=== PATIENT | female | born 1960 | race Two or more races ===

== ENCOUNTER 2020-04-15 11:40 | Emergency (ER) | payer OTHER, SELFPAY ==
--- NOTE | 2020-04-15 11:56 | ED.EXTPRO ---
HPI - Extremity Problem General Chief complaint: Extremity Injury, Upper Stated complaint: SHOULDER PAIN NO KNOWN INJ Time Seen by Provider: 04/15/20 11:55 Source: patient Mode of arrival: ambulatory History of Present Illness HPI Narrative: 60-year-old female presenting to ED complaining of right shoulder pain MD Complaint: extremity pain Related Data Allergies Allergy/AdvReac Type Severity Reaction Status Date / Time No Known Allergies Allergy Unverified 03/21/20 17:39
[2020-04-15 12:00] VITALS: BP 123/86; PULSE 110; RESP 16; TEMP 36.4; O2SAT 98
--- NOTE | 2020-04-15 12:06 | ECG_ITS ---
Test Reason : CHEST PAIN Blood Pressure : / mmHG Vent. Rate : 095 BPM Atrial Rate : 095 BPM P-R Int : 142 ms QRS Dur : 074 ms QT Int : 346 ms P-R-T Axes : 056 036 030 degrees QTc Int : 434 ms Normal sinus rhythm Possible Left atrial enlargement Otherwise normal ECG When compared with ECG of 25-NOV-2019 17:33, No significant change was found Referred By: Pauly Lima Electronically Signed By:CHILO BAUTISTA MD
--- NOTE | 2020-04-15 12:18 | ED_ITS ---
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 States she is prescribed oxycodone she ran out of it today call the primary care doctor for refill however today was having pain radiating down to the HS the plantar come to emergency room. She otherwise denies any shortness of breath. No fever or chills. No cough. No recent injury or fall. No headache. No upper extremity numbness or weakness or loss of sensation. MD Complaint: other (r side cp ) Onset (ago): day(s) Pain Consistency: intermittent Location: right Severity scale (1-10): 4 Quality: aching Radiation: none Relieving factors: nothing Exacerbating factors: palpation Associated symptoms: chest pain Related Data Previous Rx's Medication Instructions Recorded cyclobenzaprine 10 mg PO BEDTIME PRN #20 tab 04/15/20 Allergies Allergy/AdvReac Type Severity Reaction Status Date / Time No Known Allergies Allergy Unverified 03/21/20 17:39 Review of Systems Review of Systems: Constitutional: No Weight loss, No Fever, No Chills, No Night Sweats, No Fatigue, No Malaise ENT/Mouth: No Hearing loss, No Ear Pain, No Nasal Congestion, No Sinus Pain, No Hoarseness, No sore throat, No Rhinorrhea, No Swallowing Difficulty Eyes: No Eye Pain, No Swelling, No Redness, No Foreign Body, No Discharge, No Vision Changes Cardiovascular: + Chest Pain, No SOB, No Dyspnea on Exertion, No Orthopnea, No Edema, No Palpitations Respiratory: No Cough, No Sputum, No Wheezing, No Smoke Exposure, No Dyspnea Gastrointestinal: No Nausea, No Vomiting, No Diarrhea, No Constipation, No abdominal Pain, No Hematochezia, No Melena Genitourinary: no irregular bleeding, No Dysuria, No Urinary Frequency, No Hematuria, No Urinary Incontinence, No Urgency, No Flank Pain, No Urinary Flow Changes, No Hesitancy Musculoskeletal: No joint pain, No Myalgias, No Joint Swelling Skin: No Skin Lesions, No rash Neuro: No Weakness, No Numbness, No Paresthesias, No Loss of Consciousness, No Dizziness, No Headache Psych: No Anxiety/Panic, No Depression, No SI/HI/AH/VH, No Social Issues, Heme/Lymph: No Bruising, No Bleeding,No Lymphadenopathy Endocrine: No Polyuria, No Polydipsia, No Temperature Intolerance [facility] Past Medical History Attestation statement: The following information was validated with the patient. Medical History (Updated 04/15/20 @ 15:53 by Ruy Theodore NP) Edema Recent surgical procedure on lower extremity Surgical History (Updated 04/15/20 @ 12:10 by Dominga Mancuso) H/O abdominoplasty H/O thyroidectomy History of tubal ligation Social History Social History Alcohol intake: never Smoking Status: Never smoker Use of substances other than those prescribed or required for medical reasons: No Advance Directives: No Advance Directives Information Provided: No Physical Exam Vital Signs: Vital Signs: Vital Signs Temp Pulse Resp BP Pulse Ox 04/15/20 14:00 98.4 F 93 14 128/77 04/15/20 12:43 98.1 F 94 20 114/75 97 04/15/20 12:00 97.6 F 110 H 16 123/86 98 Body Mass Index 0.3 Const: General: cooperative and healthy appearing; No acute distress or intoxicated appearing Nutritional Appearance: average body habitus Orientation/consciousness: patient oriented x3 HENMT: Head: Yes normal to inspection Ears: hearing grossly normal bilaterally Eyes: General: appearance normal, both eyes and all related structures Visual Herrera: normal visual herrera by confrontation Neck: Neck: Yes normal visual inspection, No positive Brudzinski's sign, No positive Kernig's sign and Yes tender ( Right-sided lateral neck. Negative Spurling) Thyroid: Thyroid normal Chest: Chest palpation & inspection: normal inspection of the chest and other (r side paternal msk ttp ) Resp: Effort & Inspection: normal respiratory effort Cardio: Jugular venous distension: no JVD GI: Inspection: Yes normal to inspection Percussion: Yes normal to percussion Auscultation: normal bowel sounds : General: Yes no CVA tenderness Back/Spine/Pelvis: Back: no CVA tenderness Skin: General skin exam: no rashes or lesions noted Neuro: General: patient oriented x3 Extrem: General: Yes normal to inspection MDM - Extremity (Nontraumatic) MDM Narrative Medical decision making narrative: injury [age] female presenting with right- sided chest wall pain radiating up to the pectoral muscle/ cervical spine area. Has longstanding history of this minus the right-sided chest pain today. Patient arrival does appear slightly anxious heart rate in the low 100s. Labs unremarkable. Given the elevated D-dimer a CTA was done that was unremarkable. Incidental GB stone was shown she has no abdominal pain. Exam is benign. Hemodynamically stable. Differential diagnosis include but not limited to appendicitis, strain, cervical radiculopathy, ACS, pulmonary embolism. Lab Data Result diagrams: 04/15/20 12:41 04/15/20 12:41 Labs: Lab Results 04/15/20 04/15/20 04/15/20 Range/Units 12:41 12:41 12:41 WBC 5.0 (4.8-10.8) X10*3/uL RBC 3.92 L (4.20-5.50) X10*6/uL Hgb 13.8 (12.0-16.0) g/dl Hct 40.4 (37-47) % MCV 103.1 H (80-98) fL MCH 35.2 H (27.0-33.0) pg MCHC 34.2 (31.0-35.0) g/dl RDW 11.4 (11.0-16.0) % Plt Count 93 L (160-400) X10*3/uL MPV 10.4 (9.4-12.3) fL Immature Gran % (Auto) 0.2 (0.0-0.4) % Neut % (Auto) 68.4 (45-73) % Lymph % (Auto) 19.8 L (20-40) % [place] % (Auto) 11.0 (2-11) % Eos % (Auto) 0.0 (0-4) % Baso % (Auto) 0.6 (0-2) % Lymph # (Auto) 1.0 L (1.2-4.9) X10*3/uL [place] # (Auto) 0.6 (0.1-1.2) X10*3/uL Eos # (Auto) 0.0 (0.0-0.4) X10*3/uL Baso # (Auto) 0.0 (0.0-0.2) X10*3/uL Abs Immat Gran (auto) 0.01 (0.00-0.03) X10*3/uL Absolute Neuts (auto) 3.4 (2.0-8.3) X10*3/uL Absolute Nucleated RBC 0.000 (0.0-0.012) X10*3/uL Nucleated RBC % (auto) 0.0 (0.0-0.2) /100WBC D-Dimer 488 NG/ML Hold Blue Top SEE NOTE Sodium 142 (135-145) mmol/L Potassium 4.8 (3.3-5.1) mmol/l Chloride 103 (96-108) mmol/L Carbon Dioxide 30 H (22-29) mmol/L Anion Gap 14 (12-20) BUN 8 L (9-16) mg/dL Creatinine 0.72 (0.5-1.4) mg/dL Estim Creat Clear Calc 101.5 Estimated GFR > 60 Random Glucose 96 (60-115) mg/dL Calcium 9.5 (8.4-10.2) mg/dL Total Bilirubin 1.8 H (0.0-1.0) mg/dL AST 59 H (5-31) U/L ALT 37 H (0-31) U/L Alkaline Phosphatase 89 (39-117) U/L Troponin I High Sens (<3.5-17.0) ng/L Total Protein 7.6 (6.5-8.0) g/dL Albumin 4.4 (3.5-5.0) g/dL 04/15/20 Range/Units 12:41 WBC (4.8-10.8) X10*3/uL RBC (4.20-5.50) X10*6/uL Hgb (12.0-16.0) g/dl Hct (37-47) % MCV (80-98) fL MCH (27.0-33.0) pg MCHC (31.0-35.0) g/dl RDW (11.0-16.0) % Plt Count (160-400) X10*3/uL MPV (9.4-12.3) fL Immature Gran % (Auto) (0.0-0.4) % Neut % (Auto) (45-73) % Lymph % (Auto) (20-40) % [place] % (Auto) (2-11) % Eos % (Auto) (0-4) % Baso % (Auto) (0-2) % Lymph # (Auto) (1.2-4.9) X10*3/uL [place] # (Auto) (0.1-1.2) X10*3/uL Eos # (Auto) (0.0-0.4) X10*3/uL Baso # (Auto) (0.0-0.2) X10*3/uL Abs Immat Gran (auto) (0.00-0.03) X10*3/uL Absolute Neuts (auto) (2.0-8.3) X10*3/uL Absolute Nucleated RBC (0.0-0.012) X10*3/uL Nucleated RBC % (auto) (0.0-0.2) /100WBC D-Dimer NG/ML Hold Blue Top Sodium (135-145) mmol/L Potassium (3.3-5.1) mmol/l Chloride (96-108) mmol/L Carbon Dioxide (22-29) mmol/L Anion Gap (12-20) BUN (9-16) mg/dL Creatinine (0.5-1.4) mg/dL Estim Creat Clear Calc Estimated GFR Random Glucose (60-115) mg/dL Calcium (8.4-10.2) mg/dL Total Bilirubin (0.0-1.0) mg/dL AST (5-31) U/L ALT (0-31) U/L Alkaline Phosphatase (39-117) U/L Troponin I High Sens 3.6 (<3.5-17.0) ng/L Total Protein (6.5-8.0) g/dL Albumin (3.5-5.0) g/dL Imaging Data Chest x-ray: Radiologist's impression: Nola Carballo 60 F 1960 [place] [id number] XRay Report Signed Patient: ReymundoNola senaMR#: [id number] : 8Acct:[id number] Age/Sex: 60 / FADM Date: 04/15/20 Loc: HO.ED Attending Dr: Ordering Physician: Ruy Theodore NP Date of Service: 04/15/20 Procedure(s): XR chest 1V Accession Number(s): [id number] cc: Ruy Theodore [employer]~ EXAMINATION: XR CHEST CLINICAL INFORMATION: Chest wall pain COMPARISON: None TECHNIQUE: Portable upright AP view of the chest was obtained. FINDINGS: Lungs are clear. The vascularity is normal. There is no pneumothorax, airspace consolidation, vascular congestion, or effusion. The heart is normal in size. The hilar and mediastinal contours and bony structures are unremarkable. IMPRESSION: Unremarkable examination. Dictated By:NILSA NARANJO MD Signed By:<Electronically signed by NILSA NARANJO MD in [place]>04/15/20 1242 DD/ 1222 TD/TT: Cement Sack Breaker: ANTUNEZ CTA chest PE study: Radiologist's impression: Nola Carballo 60 F 1960 [place] [address] [address] Scan Report Signed Patient: Nola CarballoMR#: [id number] : 8Acct:[id number] Age/Sex: 60 / FADM Date: 04/15/20 Loc: .ED Attending Dr: Ordering Physician: Ruy Theodore NP Date of Service: 04/15/20 Procedure(s): CT angio chest PE protocol Accession Number(s): [id number] cc: Ruy Theodore [employer]~ EXAMINATION: CT ANGIOGRAM OF THE CHEST WITH AND WITHOUT CONTRAST (CT PULMONARY ANGIOGRAM FOR PE) CLINICAL INFORMATION: Reason for Exam cp / elevated ddimer COMPARISON: Previous chest x-ray from earlier the same day and chest CT most recent November 2019 TECHNIQUE: Prior to contrast administration, noncontrast localization images were obtained. Subsequently, multidetector volumetric imaging was performed from the thoracic inlet to below the diaphragms following the administration of 65 mL Omnipaque 350 intravenous contrast. No contrast reaction reported Sagittal, coronal, and MIP oblique sagittal reformatted images were obtained on the CT workstation, uploaded to PACS, and reviewed. This CT examination was performed using dose optimization techniques as appropriate, variously including the following: *Automated exposure control *Adjustment of mA and/or kV according to patient size (this includes techniques or standardized protocols for targeted exams where dose is matched to indication/reason for exam; i.e. extremities or head) *Use of iterative reconstruction technique Total exam dose-length product 363 mGy-cm FINDINGS: QUALITY OF STUDY/CONTRAST BOLUS: Satisfactory. PULMONARY ARTERIES: No central or segmental pulmonary emboli. THORACIC AORTA: No aneurysm or dissection. LUNG: No focal consolidation, nodules or masses. PLEURA: No pleural effusion or pneumothorax. MEDIASTINUM: Normal heart size. No pericardial effusion. No hilar or mediastinal lymphadenopathy. No evidence of septal bowing or right heart strain. CHEST WALL/AXILLA: No axillary or internal mammary lymphadenopathy. OSSEOUS STRUCTURES: There are mild degenerative changes of the spine. There is an old left lateral rib fracture. UPPER ABDOMEN: There are 2 low-attenuation liver lesions that are stable probably representing cysts. There is high attenuation seen dependently in the gallbladder questionable for small gallstones. There are postsurgical changes to the stomach following gastric sleeve procedure. No reflux of contrast into the hepatic veins to suggest elevated right heart pressures. IMPRESSION: No evidence of pulmonary embolism. Stable probable liver cysts. High attenuation seen dependently in the gallbladder questionable for small gallstones. VTE: negative Dictated By:ROMINA CLOUD MD Signed By:<Electronically signed by ROMINA CLOUD MD in [place]>04/15/20 1506 DD/ 1314 TD/TT: Cement Sack Breaker: FRANSICO ECG Data Interpretation: Normal sinus rhythm Heart rate [address] segment changes When compared to 11/25/2019 no acute changes. Discharge Plan Discharge Clinical Impression: Acute chest wall pain Patient Disposition: Home, Self-Care Instructions: Costochondritis (ED) Additional Instructions: warm compresses Gentle stretching Take medication as prescribed Return if any concerns or worsening symptoms Otherwise scheduled follow-up with her primary care doctor in the next 3-5 days Thank you Prescriptions: New cyclobenzaprine 10 mg tablet 10 mg PO BEDTIME PRN (Reason: muscle spasm) Qty: 20 RF: 0 Referrals: Bell Quintanilla MD [Primary Care Provider] - 2 days
--- NOTE | 2020-04-15 12:22 | XR_ITS ---
EXAMINATION: XR CHEST CLINICAL INFORMATION: Chest wall pain COMPARISON: None TECHNIQUE: Portable upright AP view of the chest was obtained. FINDINGS: Lungs are clear. The vascularity is normal. There is no pneumothorax, airspace consolidation, vascular congestion, or effusion. The heart is normal in size. The hilar and mediastinal contours and bony structures are unremarkable. IMPRESSION: Unremarkable examination.
[2020-04-15 12:43] VITALS: BP 114/75; PULSE 94; RESP 20; TEMP 36.7; O2SAT 97
[2020-04-15 12:48] LABS: MANUAL DIFF FLAG NO
[2020-04-15 12:49] LABS: Basophils Percent Auto 0.6 % (0-2); Hematocrit 40.4 % (37-47); Hemoglobin 13.8 g/dl (12.0-16.0); Imm Gran Abs Auto 0.01 X10*3/uL (0.00-0.03); Imm Gran Pct Auto 0.2 % (0.0-0.4); Lymphocytes Percent Auto 19.8 % (20-40); Mean Corpuscular HGB Conc 34.2 g/dl (31.0-35.0); Mean Corpuscular Hemoglobin 35.2 pg (27.0-33.0); Mean Corpuscular Volume 103.1 fL (80-98); Mean Platelet Volume 10.4 fL (9.4-12.3); Monocytes Absolute Auto 0.6 X10*3/uL (0.1-1.2); Neutrophils Absolute Auto 3.4 X10*3/uL (2.0-8.3); Neutrophils Percent Auto 68.4 % (45-73); Red Blood Count 3.92 X10*6/uL (4.20-5.50); Red Cell Distribution Width 11.4 % (11.0-16.0)
[2020-04-15 12:52] LABS: Platelet Count 93 X10*3/uL (160-400)
[2020-04-15 13:01] LABS: D Dimer 488 NG/ML
--- NOTE | 2020-04-15 13:14 | CT_ITS ---
EXAMINATION: CT ANGIOGRAM OF THE CHEST WITH AND WITHOUT CONTRAST (CT PULMONARY ANGIOGRAM FOR PE) CLINICAL INFORMATION: Reason for Exam cp / elevated ddimer COMPARISON: Previous chest x-ray from earlier the same day and chest CT most recent November 2019 TECHNIQUE: Prior to contrast administration, noncontrast localization images were obtained. Subsequently, multidetector volumetric imaging was performed from the thoracic inlet to below the diaphragms following the administration of 65 mL Omnipaque 350 intravenous contrast. No contrast reaction reported Sagittal, coronal, and MIP oblique sagittal reformatted images were obtained on the CT workstation, uploaded to PACS, and reviewed. This CT examination was performed using dose optimization techniques as appropriate, variously including the following: *Automated exposure control *Adjustment of mA and/or kV according to patient size (this includes techniques or standardized protocols for targeted exams where dose is matched to indication/reason for exam; i.e. extremities or head) *Use of iterative reconstruction technique Total exam dose-length product 363 mGy-cm FINDINGS: QUALITY OF STUDY/CONTRAST BOLUS: Satisfactory. PULMONARY ARTERIES: No central or segmental pulmonary emboli. THORACIC AORTA: No aneurysm or dissection. LUNG: No focal consolidation, nodules or masses. PLEURA: No pleural effusion or pneumothorax. MEDIASTINUM: Normal heart size. No pericardial effusion. No hilar or mediastinal lymphadenopathy. No evidence of septal bowing or right heart strain. CHEST WALL/AXILLA: No axillary or internal mammary lymphadenopathy. OSSEOUS STRUCTURES: There are mild degenerative changes of the spine. There is an old left lateral rib fracture. UPPER ABDOMEN: There are 2 low-attenuation liver lesions that are stable probably representing cysts. There is high attenuation seen dependently in the gallbladder questionable for small gallstones. There are postsurgical changes to the stomach following gastric sleeve procedure. No reflux of contrast into the hepatic veins to suggest elevated right heart pressures. IMPRESSION: No evidence of pulmonary embolism. Stable probable liver cysts. High attenuation seen dependently in the gallbladder questionable for small gallstones. VTE: negative
[2020-04-15 13:19] LABS: Alanine Aminotransferase 37 U/L (0-31); Albumin Level 4.4 g/dL (3.5-5.0); Alkaline Phosphatase 89 U/L (39-117); Anion Gap 14 (12-20); Aspartate Amino Transferase 59 U/L (5-31); Bilirubin Total 1.8 mg/dL (0.0-1.0); Blood Urea Nitrogen 8 mg/dL (9-16); Calcium 9.5 mg/dL (8.4-10.2); Carbon Dioxide 30 mmol/L (22-29); Chloride 103 mmol/L (96-108); Creatinine Clr Calc Pharmacy 101.5; Estimated Glomerular Filt Rate > 60; Glucose Random 96 mg/dL (60-115); Potassium 4.8 mmol/l (3.3-5.1); Sodium 142 mmol/L (135-145); Total Protein 7.6 g/dL (6.5-8.0)
[2020-04-15 13:24] LABS: Troponin-I High Sensitivity 3.6 ng/L (<3.5-17.0)
[2020-04-15 14:00] VITALS: BP 128/77; PULSE 93; RESP 14; TEMP 36.9
[2020-04-15] MEDS: iohexoL 350 MG/ML 100 ML INFUS..BTL IV (14:48)
[2020-04-15 15:59] VITALS: BP 121/85; PULSE 92; RESP 18; O2SAT 98
== END 2020-04-15 16:05 | disposition home or self-care (01) ==
PROVIDERS: Nurse Practitioner Primary Care; Emergency Provider Emergency Medicine; PCP Internal Medicine
DX: R07.89 Other chest pain (principal); M94.0 Chondrocostal junction syndrome [Tietze]
CPT/HCPCS: 36415; 71045; 71275; 80053; 84484; 85025; 85379; 93005; 99284

== ENCOUNTER 2020-05-03 10:33 | Outpatient (REF) | payer OTHER, SELFPAY | END 2020-05-03 10:34 | disposition home or self-care (01) | LOC: HO.LAB 10:33 | PROVIDERS: Visit Provider Obstetrics & Gynecology | DX: A63.0 Anogenital (venereal) warts (principal) | CPT/HCPCS: 57454; 88305; 88342; 88360 ==

== ENCOUNTER → 2020-05-16 12:02 | Outpatient (BNVA) | payer OTHER, SELFPAY | PROVIDERS: Visit Provider Obstetrics & Gynecology | DX: N87.0 Mild cervical dysplasia (principal) | CPT/HCPCS: 99212 ==

== ENCOUNTER 2020-05-18 08:36 | Emergency (ER) | payer OTHER, SELFPAY ==
[2020-05-18 08:41] VITALS: BP 141/89; PULSE 133; RESP 18; TEMP 37; O2SAT 100; BMI 30.9
--- NOTE | 2020-05-18 08:55 | XR_ITS ---
EXAMINATION: XR CHEST CLINICAL INFORMATION: Chest pain COMPARISON: Chest x-ray and CTA chest 04/15/2020 TECHNIQUE: Frontal view of the chest was obtained. FINDINGS: Cardiac silhouette is normal in size. The lungs are well aerated. There is no lobar consolidation. No pleural effusion or pneumothorax. No gross osseous abnormality. XR/XR chest 1V IMPRESSION: Stable examination demonstrating no acute pulmonary pathology.
--- NOTE | 2020-05-18 08:55 | ECG_ITS ---
Test Reason : CHEST PRESSURE Blood Pressure : / mmHG Vent. Rate : 106 BPM Atrial Rate : 106 BPM P-R Int : 148 ms QRS Dur : 076 ms QT Int : 352 ms P-R-T Axes : 060 059 034 degrees QTc Int : 467 ms Sinus tachycardia Possible Left atrial enlargement Borderline ECG When compared with ECG of 15-APR-2020 12:10, No significant change was found Referred By: Will Sy Electronically Signed By:CHILO BAUTISTA MD
--- NOTE | 2020-05-18 08:57 | ED_ITS ---
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 Never had similar pain in the past. Related Data Home Medications Medication Instructions Recorded Confirmed atorvastatin 20 mg tablet 20 mg PO DAILY 05/16/20 05/16/20 azithromycin 250 mg tablet mg PO DIRECTED 05/16/20 05/16/20 hydrocortisone 2.5 % topical cream applic TOPICAL 05/16/20 05/16/20 ibuprofen 400 mg tablet 400 mg PO TID 05/16/20 05/16/20 loratadine 10 mg tablet 10 mg PO DAILY 05/16/20 05/16/20 ondansetron HCl 4 mg tablet mg PO 05/16/20 05/16/20 Previous Rx's Medication Instructions Recorded cyclobenzaprine 10 mg PO BEDTIME PRN #20 tab 04/15/20 furosemide 20 mg tablet 10 mg PO QAM 90 Days #45 tab 04/15/20 Allergies Allergy/AdvReac Type Severity Reaction Status Date / Time No Known Allergies Allergy Unverified 05/16/20 12:03 Review of Systems Review of Systems All other systems are reviewed and are negative Constitutional: Reports as per HPI and Reports no additional constitutional complaints Eyes: Reports as per HPI and Reports no additional eye complaints Reports system reviewed and no additional complaints, except as documented Cardiovascular: Reports as per HPI and Reports no additional cardiovascular complaints Respiratory: Reports as per HPI and Reports no additional respiratory complaints Gastrointestinal: Reports as per HPI and Reports no additional gastrointestinal complaints Genitourinary: Reports no additional female genitourinary complaints Musculoskeletal: Reports no additional musculoskeletal complaints Skin/Breast: Reports system reviewed and no additional complaints, except as docu Psychiatric: Reports no additional psychiatric complaints Endocrine: Reports no additional endocrine complaints Hematologic/Lymphatic: Reports no additional hematologic/lymphatic complaints Allergic/Immunologic: Reports no additional allergic/immunologic complaints Reports system reviewed and no additional complaints, except as documented and Reports Abnormal speech present Physical Exam Vital Signs: Vital Signs: Last Vital Signs Temp 98.6 F 05/18/20 08:41 Pulse 97 05/18/20 12:15 Resp 18 05/18/20 12:15 BP 141/89 H 05/18/20 08:41 Pulse Ox 100 05/18/20 08:41 Body Mass Index 30.9 Vital signs have been reviewed as normal and appeared to be correct. Blood pressure on high range. Tachycardia. Respiration rate normal. Temperature normal. Oxygen saturation normal. Appearance: Alert. Oriented X3. acute distress due to active vomiting. Head: Normal external exam. Normocephalic. Atraumatic. No Meredith signs noted. No raccoon eyes noted Eyes: PERRLA. EOMI. Conjunctiva and sclera normal. Eyelids normal. ENT: EAC normal. TM's Normal. Pharynx normal. Uvula midline. Moist mucous membranes. No trismus noted. No drooling noted. No muffled voice noted. Neck: Normal inspection. Neck supple. FROM. No adenopathy. Thyroid Normal. No meningeal signs. No neck mass noted. CVS: Normal heart rate and rhythm. Heart sound normal. No murmurs noted. Pulses normal throughout. Respiratory: No respiratory distress. Painless inspiration. Breath sounds normal. No wheezes/rales/rhonchi noted. Chest nontender. No accessory muscle usage noted or decreased air movement noted. Abdomen: Positive tenderness to the epigastric area, no rebound, no guarding. Bowel sounds normal in all 4 quadrants. No distention noted. No organomegaly noted. No visible injury noted. Back: No CVA tenderness. Full range of motion noted. Skin: Skin warm and dry. Normal skin color. Normal skin turgor. No rashes/lesions/lacerations noted. Extremities: No lower extremity edema. Extremities exhibit normal range of motion. Extremities nontender. Neuro: Oriented X 3. No motor deficit. No sensory deficit. Reflexes normal. Course Course Course Narrative: 60 years old female presented with chest pain/epigastric abdominal pain, intractable double vomiting. Check labs for intra-abdominal/cardiac problems, reassess the patient, symptoms control. MDM - Abdominal Pain MDM Narrative Medical decision making narrative: 60-year-old female presented with chest pain/upper abdominal pain. 1. Slight elevation of LFTs ultrasound of the abdomen is unremarkable for gallbladder problems. 2. Chest pain EKG is unremarkable, chest x-ray is unremarkable, troponin x2 with a normal value . 3. Patient feels better able to tolerate p.o. intake with no nausea vomiting or abdominal pain. Will discharge the patient to follow-up with PCP. Lab Data Attestation: I reviewed the patient's lab results. Lab results narrative: Elevation of LFTs. Result diagrams: 05/18/20 09:05 05/18/20 09:05 Labs: Lab Results 05/18/20 05/18/20 05/18/20 Range/Units 09:05 09:05 09:05 WBC 6.4 (4.8-10.8) X10*3/uL RBC 4.24 (4.20-5.50) X10*6/uL Hgb 14.6 (12.0-16.0) g/dl Hct 42.9 (37-47) % MCV 101.2 H (80-98) fL MCH 34.4 H (27.0-33.0) pg MCHC 34.0 (31.0-35.0) g/dl RDW 11.3 (11.0-16.0) % Plt Count 176 D (160-400) X10*3/uL MPV 9.9 (9.4-12.3) fL Immature Gran % (Auto) 0.3 (0.0-0.4) % Neut % (Auto) 70.4 (45-73) % Lymph % (Auto) 19.6 L (20-40) % [place] % (Auto) 8.9 (2-11) % Eos % (Auto) 0.2 (0-4) % Baso % (Auto) 0.6 (0-2) % Lymph # (Auto) 1.3 (1.2-4.9) X10*3/uL [place] # (Auto) 0.6 (0.1-1.2) X10*3/uL Eos # (Auto) 0.0 (0.0-0.4) X10*3/uL Baso # (Auto) 0.0 (0.0-0.2) X10*3/uL Abs Immat Gran (auto) 0.02 (0.00-0.03) X10*3/uL Absolute Neuts (auto) 4.5 (2.0-8.3) X10*3/uL Absolute Nucleated RBC 0.000 (0.0-0.012) X10*3/uL Nucleated RBC % (auto) 0.0 (0.0-0.2) /100WBC Sodium 145 (135-145) mmol/L Potassium 4.1 (3.3-5.1) mmol/l Chloride 103 (96-108) mmol/L Carbon Dioxide 31 H (22-29) mmol/L Anion Gap 15 (12-20) BUN 6 L (9-16) mg/dL Creatinine 0.82 (0.5-1.4) mg/dL Estim Creat Clear Calc 70.9 Estimated GFR > 60 Random Glucose 110 (60-115) mg/dL Calcium 9.3 (8.4-10.2) mg/dL Total Bilirubin 2.0 H (0.0-1.0) mg/dL Direct Bilirubin 0.7 H (0.0-0.5) mg/dL AST 60 H (5-31) U/L ALT 39 H (0-31) U/L Alkaline Phosphatase 107 D (39-117) U/L Troponin I High Sens 3.9 (<3.5-17.0) ng/L B-Natriuretic Peptide (<100) pg/mL Total Protein 8.0 (6.5-8.0) g/dL Albumin 4.8 (3.5-5.0) g/dL Lipase 61 (8-78) U/L 05/18/20 05/18/20 Range/Units 09:05 14:12 WBC (4.8-10.8) X10*3/uL RBC (4.20-5.50) X10*6/uL Hgb (12.0-16.0) g/dl Hct (37-47) % MCV (80-98) fL MCH (27.0-33.0) pg MCHC (31.0-35.0) g/dl RDW (11.0-16.0) % Plt Count (160-400) X10*3/uL MPV (9.4-12.3) fL Immature Gran % (Auto) (0.0-0.4) % Neut % (Auto) (45-73) % Lymph % (Auto) (20-40) % [place] % (Auto) (2-11) % Eos % (Auto) (0-4) % Baso % (Auto) (0-2) % Lymph # (Auto) (1.2-4.9) X10*3/uL [place] # (Auto) (0.1-1.2) X10*3/uL Eos # (Auto) (0.0-0.4) X10*3/uL Baso # (Auto) (0.0-0.2) X10*3/uL Abs Immat Gran (auto) (0.00-0.03) X10*3/uL Absolute Neuts (auto) (2.0-8.3) X10*3/uL Absolute Nucleated RBC (0.0-0.012) X10*3/uL Nucleated RBC % (auto) (0.0-0.2) /100WBC Sodium (135-145) mmol/L Potassium (3.3-5.1) mmol/l Chloride (96-108) mmol/L Carbon Dioxide (22-29) mmol/L Anion Gap (12-20) BUN (9-16) mg/dL Creatinine (0.5-1.4) mg/dL Estim Creat Clear Calc Estimated GFR Random Glucose (60-115) mg/dL Calcium (8.4-10.2) mg/dL Total Bilirubin (0.0-1.0) mg/dL Direct Bilirubin (0.0-0.5) mg/dL AST (5-31) U/L ALT (0-31) U/L Alkaline Phosphatase (39-117) U/L Troponin I High Sens < 3.5 (<3.5-17.0) ng/L B-Natriuretic Peptide < 10 (<100) pg/mL Total Protein (6.5-8.0) g/dL Albumin (3.5-5.0) g/dL Lipase (8-78) U/L Imaging Data Gallbladder ultrasound: Radiologist's impression: Unremarkable gallbladder ECG Data Interpretation: Sinus tachycardia at 106 beats per minutes, normal axis, unremarkable intervals, no ST-T changes. Discharge Plan Discharge Clinical Impression: Gastritis Qualifiers: Gastritis type: unspecified gastritis Chronicity: acute Gastritis bleeding: wi thout bleeding Qualified Code(s): K29.00 - Acute gastritis without bleeding Chest pain Qualifiers: Chest pain type: unspecified Qualified Code(s): R07.9 - Chest pain, unspecified Patient Disposition: Home, Self-Care Instructions: Gastritis (ED) Prescriptions: No Action furosemide 20 mg tablet 10 mg PO QAM 90 Days Qty: 45 RF: 3 cyclobenzaprine 10 mg tablet 10 mg PO BEDTIME PRN (Reason: muscle spasm) Qty: 20 RF: 0 ibuprofen 400 mg tablet 400 mg PO TID RF: 0 ondansetron HCl 4 mg tablet PO RF: 0 loratadine 10 mg tablet 10 mg PO DAILY RF: 0 azithromycin 250 mg tablet PO DIRECTED RF: 0 hydrocortisone 2.5 % cream topical RF: 0 atorvastatin 20 mg tablet 20 mg PO DAILY RF: 0 Referrals: Mary Arndt MD [Physician] - 2 weeks [facility] Past Medical History Medical History IGNACIO I (cervical intraepithelial neoplasia I) Edema Leg edema Neck pain Recent surgical procedure on lower extremity Surgical History H/O abdominoplasty H/O thyroidectomy History of tubal ligation Social History Social History Alcohol intake: never Smoking Status: Never smoker Smoked in Last 30 Days: No Use of substances other than those prescribed or required for medical reasons: No Advance Directives: No Advance Directives Information Provided: No Sexual orientation: Straight/Heterosexual Gender identity: female
[2020-05-18] MEDS: ondansetron HCL 4 MG/2 ML VIAL IVPUSH (09:03)
[2020-05-18] MEDS: Famotidine/PF 20 MG/2 ML VIAL IVPUSH (09:03)
[2020-05-18] MEDS: 0.9 % Sodium Chloride 500 ML 1000 ML IV (09:03)
[2020-05-18 09:10] LABS: MANUAL DIFF FLAG NO
[2020-05-18 09:11] LABS: Basophils Percent Auto 0.6 % (0-2); Eosinophils Percent Auto 0.2 % (0-4); Hematocrit 42.9 % (37-47); Hemoglobin 14.6 g/dl (12.0-16.0); Imm Gran Abs Auto 0.02 X10*3/uL (0.00-0.03); Imm Gran Pct Auto 0.3 % (0.0-0.4); Lymphocytes Absolute Auto 1.3 X10*3/uL (1.2-4.9); Lymphocytes Percent Auto 19.6 % (20-40); Mean Corpuscular Hemoglobin 34.4 pg (27.0-33.0); Mean Corpuscular Volume 101.2 fL (80-98); Mean Platelet Volume 9.9 fL (9.4-12.3); Monocytes Absolute Auto 0.6 X10*3/uL (0.1-1.2); Monocytes Percent Auto 8.9 % (2-11); Neutrophils Absolute Auto 4.5 X10*3/uL (2.0-8.3); Neutrophils Percent Auto 70.4 % (45-73); Platelet Count 176 X10*3/uL (160-400); Red Blood Count 4.24 X10*6/uL (4.20-5.50); Red Cell Distribution Width 11.3 % (11.0-16.0); White Blood Count 6.4 X10*3/uL (4.8-10.8)
[2020-05-18 09:44] LABS: Troponin-I High Sensitivity 3.9 ng/L (<3.5-17.0)
[2020-05-18 09:46] LABS: B Type Natriuretic Peptide < 10 pg/mL (<100)
[2020-05-18 09:47] LABS: Alanine Aminotransferase 39 U/L (0-31); Albumin Level 4.8 g/dL (3.5-5.0); Alkaline Phosphatase 107 U/L (39-117); Anion Gap 15 (12-20); Aspartate Amino Transferase 60 U/L (5-31); Bilirubin Direct 0.7 mg/dL (0.0-0.5); Blood Urea Nitrogen 6 mg/dL (9-16); Calcium 9.3 mg/dL (8.4-10.2); Carbon Dioxide 31 mmol/L (22-29); Chloride 103 mmol/L (96-108); Creatinine Clr Calc Pharmacy 70.9; Estimated Glomerular Filt Rate > 60; Glucose Random 110 mg/dL (60-115); Lipase 61 U/L (8-78); Potassium 4.1 mmol/l (3.3-5.1); Sodium 145 mmol/L (135-145)
[2020-05-18 12:15] VITALS: PULSE 97; RESP 18
--- NOTE | 2020-05-18 12:54 | US_ITS ---
EXAMINATION: US ABDOMEN LIMITED CLINICAL INFORMATION: 60-year-old female patient with nausea and vomiting and elevated LFTs.. COMPARISON: Ultrasound of the abdomen complete on 06/03/2017. (Normal gallbladder). TECHNIQUE: Real-time imaging of the right upper quadrant abdominal viscera. FINDINGS: PANCREAS: Not examined. LIVER: Not examined. GALLBLADDER: Normal. The gallbladder is physiologically distended without evidence of stones, sludge, polyps, wall thickening or pericholecystic fluid. COMMON BILE DUCT: Normal in caliber measuring 0.3 cm in diameter. RIGHT KIDNEY: Not examined. FREE FLUID: None. US/US abdomen limited IMPRESSION: Normal gallbladder.
--- NOTE | 2020-05-18 13:37 | PC.NURSE ---
US AT BEDSIDE
--- NOTE | 2020-05-18 14:14 | PC.NURSE ---
[facility] SENT. PT TOLERATING PO CHALLENGE WELL
[2020-05-18 14:41] LABS: Troponin-I High Sensitivity < 3.5 ng/L (<3.5-17.0)
[2020-05-18 15:20] VITALS: RESP 18
== END 2020-05-18 15:26 | disposition home or self-care (01) ==
PROVIDERS: Emergency Provider Emergency Medicine; PCP Internal Medicine
DX: K29.00 Acute gastritis without bleeding (principal); R07.9 Chest pain, unspecified; R10.30 Lower abdominal pain, unspecified; Z79.899 Other long term (current) drug therapy
CPT/HCPCS: 36415; 71045; 76705; 80048; 80076; 83690; 83880; 84484; 85025; 93005; 96374; 96375; 99284; J2405

== ENCOUNTER 2020-06-26 15:18 | Outpatient (REF) | payer OTHER, SELFPAY | END 2020-06-26 15:19 | disposition home or self-care (01) | LOC: HO.LAB 15:18 | PROVIDERS: PCP Internal Medicine; Visit Provider Obstetrics & Gynecology | DX: B97.7 Papillomavirus as the cause of diseases classified elsewhere (principal) | CPT/HCPCS: 57505; 88305; 99212 ==

== ENCOUNTER 2020-07-10 12:14 | Outpatient (REF) | payer OTHER, SELFPAY ==
--- NOTE | 2020-07-10 12:52 | XR_ITS ---
EXAMINATION: XR SHOULDER, RIGHT CLINICAL INFORMATION: Pain COMPARISON: None TECHNIQUE: AP, Grashey and transscapular Y views of the right shoulder. FINDINGS: No acute fracture or dislocation. Moderate chronic lacunar marginal osteophytes. Small marginal osteophytes along the anatomic neck of the humerus. Soft tissues unremarkable. XR/XR shoulder RT min 2V IMPRESSION: No acute findings. Degenerative changes as described.
[2020-07-10 13:37] LABS: Rheumatoid Factor < 15.0 IU/mL (<15.0)
== END 2020-07-10 12:15 | disposition home or self-care (01) ==
LOC: HO.LAB 12:14
PROVIDERS: PCP Internal Medicine; Visit Provider Nurse Practitioner Family
DX: M25.511 Pain in right shoulder (principal)
CPT/HCPCS: 36415; 73030; 86431

== ENCOUNTER → 2020-07-11 14:26 | Outpatient (BNVA) | payer OTHER, SELFPAY | PROVIDERS: PCP Internal Medicine; Visit Provider Physician Assistant | DX: Z76.89 Persons encountering health services in other specified circumstances (principal) ==

== ENCOUNTER → 2020-07-15 15:26 | Outpatient (BNVA) | payer OTHER, SELFPAY | PROVIDERS: PCP Internal Medicine; Visit Provider Obstetrics & Gynecology | DX: Z76.89 Persons encountering health services in other specified circumstances (principal) ==

== ENCOUNTER 2020-07-17 13:11 | Outpatient (REF) | payer OTHER, SELFPAY | END 2020-07-17 13:12 | disposition home or self-care (01) | LOC: HO.LAB 13:11 | PROVIDERS: PCP Internal Medicine; Visit Provider Physician Assistant | DX: A04.8 Other specified bacterial intestinal infections (principal) | CPT/HCPCS: 87338 ==

== ENCOUNTER 2021-05-13 09:49 | Outpatient (REF) | payer OTHER, SELFPAY ==
[2021-05-13 10:04] LABS: MANUAL DIFF FLAG NO
[2021-05-13 10:14] LABS: Basophils Percent Auto 0.9 % (0-2); Eosinophils Absolute Auto 0.1 X10*3/uL (0.0-0.4); Eosinophils Percent Auto 1.1 % (0-4); Hematocrit 42.4 % (37.0-47.0); Hemoglobin 14.4 g/dl (12.0-16.0); Imm Gran Abs Auto 0.01 X10*3/uL (0.00-0.03); Imm Gran Pct Auto 0.2 % (0.0-0.4); Lymphocytes Absolute Auto 0.9 X10*3/uL (1.2-4.9); Lymphocytes Percent Auto 19.9 % (20-40); Mean Corpuscular Volume 103.2 fL (80.0-98.0); Mean Platelet Volume 10.1 fL (9.4-12.3); Monocytes Absolute Auto 0.5 X10*3/uL (0.1-1.2); Monocytes Percent Auto 11.3 % (2-11); Neutrophils Absolute Auto 3.1 x10*3/uL (2.0-8.3); Neutrophils Percent Auto 66.6 % (45-73); Platelet Count 127 X10*3/uL (160-400); Red Blood Count 4.11 X10*6/uL (4.20-5.50); Red Cell Distribution Width 11.2 % (11.0-16.0); White Blood Count 4.7 X10*3/uL (4.8-10.8)
[2021-05-13 10:42] LABS: Alanine Aminotransferase 33 U/L (0-31); Albumin Level 4.3 g/dL (3.5-5.0); Alkaline Phosphatase 105 U/L (39-117); Anion Gap 15 (12-20); Aspartate Amino Transferase 56 U/L (5-31); Bilirubin Total 2.6 mg/dL (0.0-1.0); Blood Urea Nitrogen 9 mg/dL (9-16); Carbon Dioxide 29 mmol/L (22-29); Chloride 103 mmol/L (96-108); Cholesterol 307 mg/dL; Estimated Glomerular Filt Rate > 60; Glucose Fasting 93 mg/dL (60-99); HDL Cholesterol 90 mg/dL; LDL Cholesterol Calculated 195 mg/dl; Sodium 142 mmol/L (135-145); Total Protein 7.6 g/dL (6.5-8.0); Triglycerides 110 mg/dL
[2021-05-13 11:13] LABS: Folate 13.5 ng/mL (> or = 4.0); Vitamin B12 522 pg/mL (200-900)
[2021-05-18 12:32] LABS: Vitamin D 25-OH, D2 <4 ng/mL; Vitamin D 25-OH, D3 8 ng/mL; Vitamin D 25-OH, Total 8 ng/mL (30-100)
== END 2021-05-13 09:50 | disposition home or self-care (01) ==
LOC: HO.LAB 09:49
PROVIDERS: PCP Internal Medicine; Visit Provider Internal Medicine
DX: E55.9 Vitamin D deficiency, unspecified (principal); D51.0 Vitamin B12 deficiency anemia due to intrinsic factor deficiency; E78.5 Hyperlipidemia, unspecified; K21.9 Gastro-esophageal reflux disease without esophagitis; Z87.891 Personal history of nicotine dependence
CPT/HCPCS: 36415; 80053; 80061; 82306; 82607; 82746; 85025

== ENCOUNTER 2021-08-26 08:58 | Outpatient (REF) | payer OTHER, SELFPAY ==
--- NOTE | ~2021-08-26 | FL_ITS ---
PROCEDURE: XR FLUOROSCOPY UPPER GI WITH AIR CLINICAL INFORMATION: Gastroesophageal reflux disease without esophagitis. COMPARISON: None TECHNIQUE: Routine upper GI air-contrast study was performed. FINDINGS: Following oral administration of thick barium and effervescent granules there is normal propagation of bolus from the oral cavity through the pharynx, esophagus into stomach without any evidence of obstruction, narrowing or stricture. On placing patient supine, there is a small caliber stomach noted likely from previous gastric sleeve surgery. Visualized duodenal bulb and the sweep are normal caliber. The mucosal pattern of the stomach and the duodenum is normal. There is moderate gastroesophageal reflux without hiatal hernia. FLUOROSCOPY TIME: 1.8 minutes. DOSE AREA PRODUCT: 20.516 uGy-m2 (microgray-meter squared) FL/FL upper GI w air IMPRESSION: Postsurgical small caliber stomach. The visualized stomach, duodenal bulb and the sweep normal. There is moderate gastroesophageal reflux without hiatal hernia.
== END 2021-08-26 08:59 | disposition home or self-care (01) ==
LOC: HO.XRAY 08:58
PROVIDERS: PCP Internal Medicine; Visit Provider Internal Medicine
DX: K21.9 Gastro-esophageal reflux disease without esophagitis (principal)
CPT/HCPCS: 74246

== ENCOUNTER → 2021-10-07 11:46 | Outpatient (BNVA) | payer OTHER, SELFPAY | PROVIDERS: PCP Internal Medicine; Visit Provider Physician Assistant | DX: K21.9 Gastro-esophageal reflux disease without esophagitis (principal); R10.13 Epigastric pain; Z98.84 Bariatric surgery status | CPT/HCPCS: 36415; 80053; 83690; 85025; 99202 ==

== ENCOUNTER 2021-10-07 12:32 | Outpatient (REF) | payer OTHER, SELFPAY ==
[2021-10-07 13:30] LABS: Basophils Percent Auto 0.5 % (0-2); Eosinophils Absolute Auto 0.1 X10*3/uL (0.0-0.4); Eosinophils Percent Auto 0.9 % (0-4); Hematocrit 39.9 % (37.0-47.0); Hemoglobin 13.7 g/dl (12.0-16.0); Imm Gran Abs Auto 0.01 X10*3/uL (0.00-0.03); Imm Gran Pct Auto 0.2 % (0.0-0.4); Lymphocytes Absolute Auto 1.6 X10*3/uL (1.2-4.9); Lymphocytes Percent Auto 28.2 % (20-40); MANUAL DIFF FLAG SCAN; Mean Corpuscular HGB Conc 34.3 g/dl (31.0-35.0); Mean Corpuscular Hemoglobin 34.1 pg (27.0-33.0); Mean Corpuscular Volume 99.3 fL (80.0-98.0); Mean Platelet Volume 10.6 fL (9.4-12.3); Monocytes Absolute Auto 0.7 X10*3/uL (0.1-1.2); Monocytes Percent Auto 13.2 % (2-11); Neutrophils Absolute Auto 3.2 x10*3/uL (2.0-8.3); PLT CLUMP 1; Red Blood Count 4.02 X10*6/uL (4.20-5.50); Red Cell Distribution Width 11.3 % (11.0-16.0); SCAN SMEAR FLAG 1
[2021-10-07 13:40] LABS: Alanine Aminotransferase 23 U/L (0-31); Albumin Level 4.2 g/dL (3.5-5.0); Alkaline Phosphatase 79 U/L (39-117); Anion Gap 11 (12-20); Aspartate Amino Transferase 29 U/L (5-31); Bilirubin Total 1.6 mg/dL (0.0-1.0); Blood Urea Nitrogen 8 mg/dL (9-16); Calcium 9.7 mg/dL (8.4-10.2); Carbon Dioxide 29 mmol/L (22-29); Chloride 104 mmol/L (96-108); Estimated Glomerular Filt Rate > 60; Glucose Random 108 mg/dL (60-115); Lipase 56 U/L (8-78); Potassium 4.1 mmol/L (3.3-5.1); Sodium 140 mmol/L (135-145); Total Protein 7.1 g/dL (6.5-8.0)
[2021-10-07 13:48] LABS: Platelet Count 145 X10*3/uL (160-400); SLIDE REVIEW VERIFIED; White Blood Count 5.5 X10*3/uL (4.8-10.8)
== END 2021-10-07 12:33 | disposition home or self-care (01) ==
LOC: HO.WFDLDS 12:32
PROVIDERS: Visit Provider Physician Assistant
DX: Z13.89 Encounter for screening for other disorder (principal)
CPT/HCPCS: 36415; 80053; 83690; 85025

== ENCOUNTER → 2022-01-12 15:04 | Outpatient (BNVA) | payer OTHER, SELFPAY | PROVIDERS: PCP Internal Medicine; Visit Provider Physician Assistant | DX: K21.9 Gastro-esophageal reflux disease without esophagitis (principal); Z79.899 Other long term (current) drug therapy; Z98.84 Bariatric surgery status | CPT/HCPCS: 99212 ==

== ENCOUNTER 2022-04-30 07:49 | Outpatient (REF) | payer OTHER, SELFPAY ==
[2022-04-30 09:19] LABS: Eosinophils Absolute Auto 0.1 X10*3/uL (0.0-0.4); Eosinophils Percent Auto 1.6 % (0-4); Imm Gran Abs Auto 0.01 X10*3/uL (0.00-0.03); Imm Gran Pct Auto 0.2 % (0.0-0.4); MANUAL DIFF FLAG SCAN; PLT CLUMP 1; SCAN SMEAR FLAG 1
[2022-04-30 09:22] LABS: Basophils Percent Auto 0.4 % (0-2); Hematocrit 41.1 % (37.0-47.0); Hemoglobin 13.6 g/dl (12.0-16.0); Lymphocytes Absolute Auto 1.3 X10*3/uL (1.2-4.9); Lymphocytes Percent Auto 22.5 % (20-40); Mean Corpuscular HGB Conc 33.1 g/dl (31.0-35.0); Mean Corpuscular Hemoglobin 33.9 pg (27.0-33.0); Mean Corpuscular Volume 102.5 fL (80.0-98.0); Monocytes Absolute Auto 0.7 X10*3/uL (0.1-1.2); Monocytes Percent Auto 12.5 % (2-11); Neutrophils Absolute Auto 3.6 x10*3/uL (2.0-8.3); Neutrophils Percent Auto 62.8 % (45-73); Red Blood Count 4.01 X10*6/uL (4.20-5.50); Red Cell Distribution Width 11.3 % (11.0-16.0)
[2022-04-30 09:54] LABS: Alanine Aminotransferase 19 U/L (0-31); Albumin Level 4.1 g/dL (3.5-5.0); Alkaline Phosphatase 104 U/L (39-117); Anion Gap 16 (12-20); Aspartate Amino Transferase 41 U/L (5-31); Bilirubin Total 1.8 mg/dL (0.0-1.0); Blood Urea Nitrogen 8 mg/dL (9-16); Calcium 9.3 mg/dL (8.4-10.2); Carbon Dioxide 26 mmol/L (22-29); Chloride 108 mmol/L (96-108); Cholesterol 240 mg/dL; Estimated Glomerular Filt Rate > 60; Glucose Fasting 124 mg/dL (60-99); HDL Cholesterol 64 mg/dL; LDL Cholesterol Calculated 147 mg/dl; Potassium 4.4 mmol/L (3.3-5.1); Sodium 146 mmol/L (135-145); Total Protein 7.2 g/dL (6.5-8.0); Triglycerides 145 mg/dL
[2022-04-30 10:02] LABS: Platelet Count 133 X10*3/uL (160-400); White Blood Count 5.7 X10*3/uL (4.8-10.8)
[2022-04-30 10:03] LABS: SLIDE REVIEW VERIFIED
[2022-04-30 10:38] LABS: Folate 9.7 ng/mL (> or = 4.0); Vitamin B12 353 pg/mL (200-900)
[2022-05-06 16:51] LABS: Vitamin D 25-OH, D2 <4 ng/mL; Vitamin D 25-OH, D3 15 ng/mL; Vitamin D 25-OH, Total 15 ng/mL (30-100)
== END 2022-04-30 07:50 | disposition home or self-care (01) ==
LOC: HO.LAB 07:49
PROVIDERS: PCP Internal Medicine; Visit Provider Internal Medicine
DX: E55.9 Vitamin D deficiency, unspecified (principal); E78.00 Pure hypercholesterolemia, unspecified; D51.0 Vitamin B12 deficiency anemia due to intrinsic factor deficiency; E78.5 Hyperlipidemia, unspecified; D64.9 Anemia, unspecified
CPT/HCPCS: 36415; 80053; 80061; 82306; 82607; 82746; 85025

== ENCOUNTER 2022-05-05 11:36 | Outpatient (REF) | payer OTHER, SELFPAY ==
[2022-05-05 13:26] LABS: Estimated Average Glucose 80 mg/dL; Hemoglobin A1c % 4.4 %
== END 2022-05-05 11:37 | disposition home or self-care (01) ==
LOC: HO.LAB 11:36
PROVIDERS: PCP Internal Medicine; Visit Provider Nurse Practitioner Family
DX: R73.01 Impaired fasting glucose (principal)
CPT/HCPCS: 36415; 83036

== ENCOUNTER 2022-05-20 07:58 | Day surgery (SDC) | payer OTHER, SELFPAY ==
--- NOTE | 2022-05-13 | ECG_ITS ---
Test Reason : preop Blood Pressure : / mmHG Vent. Rate : 078 BPM Atrial Rate : 078 BPM P-R Int : 154 ms QRS Dur : 080 ms QT Int : 386 ms P-R-T Axes : 057 070 040 degrees QTc Int : 440 ms Normal sinus rhythm Possible Left atrial enlargement Borderline ECG When compared with ECG of 18-MAY-2020 09:09, Heart rate has decreased Referred By: Hiral Asif Electronically Signed By:CHILO BAUTISTA MD
[2022-05-13 12:19] VITALS: BMI 29.0
[2022-05-13 12:24] VITALS: BP 114/81; PULSE 96; RESP 20; O2SAT 97
--- NOTE | 2022-05-13 12:49 | HO.ANESPROP2 ---
Documented by User: Hiral Asif NP 05/19/22 08:10 HPI - Anesthesia Eval Consult details Narrative: 62yo F for Upper Endoscopy and Colonoscopy [facility] Active Problems Active Problems: All Active Problems (Updated 05/13/22 @ 12:19 by Criselda Jean, JOHNIE) HPV (human papilloma virus) infection (Acute Unknown) IGNACIO I (cervical intraepithelial neoplasia I) (Acute) Contact dermatitis (Acute) Poor historian (Acute) Gastric bypass status for obesity (Acute) Epigastric pain (Acute) Encounter for screening colonoscopy (Acute) Loss of balance (Acute) Elevated fasting glucose (Acute) Rash (Acute) Pernicious anemia (Acute) Mild recurrent major depression (Acute) Pure hypercholesterolemia (Acute) Chronic GERD (Acute) Shoulder pain, right (Acute) Abdominal pain (Acute) Leg edema (Acute) Neck pain (Acute) Past Medical History Medical History Abdominal pain Chronic GERD IGNACIO I (cervical intraepithelial neoplasia I) Edema History of tachycardia Leg edema Mild recurrent major depression Neck pain Pernicious anemia Pure hypercholesterolemia Recent surgical procedure on lower extremity Shoulder pain, right Family History Family History Father HTN (hypertension) Diabetes Mother HTN (hypertension) Diabetes Surgical History Surgical History H/O abdominoplasty H/O thyroidectomy History of colonoscopy History of tubal ligation Hx of gastric bypass Social History Social History Housing: House Are you a primary home care music therapist to a significant other at home: No Do you 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) Alcohol intake: current Alcohol intake frequency: a few times a month Patient Tobacco Use Status: Former Tobacco user Quit Date: 10 yrs ago Tobacco use type: Cigarette e-Cigarette/Vaping Use: Never Used Second Hand Smoke Exposure: Yes service: No Current occupational status: disabled Sexual orientation: Straight/Heterosexual Gender identity: Female Cognitive needs: No Hearing needs: No Vision needs: Yes Meds Allergies Allergy/AdvReac Type Severity Reaction Status Date / Time No Known Allergies Allergy Verified 05/13/22 12:30 Exam Exam Date and Time: May 13, 2022 1249 Height,Weight and Vital Signs: Height 5 ft 3 in Weight 74.389 kg Last Vital Signs Pulse 96 05/13/22 12:24 Resp 20 05/13/22 12:24 BP 114/81 05/13/22 12:24 Pulse Ox 97 05/13/22 12:24 O2 Del Method 05/13/22 12:24 Pertinent Lab Results Pertinent Lab Results: Laboratory Tests 04/30/22 04/30/22 07:59 07:59 WBC 5.7 Hgb 13.6 Hct 41.1 Plt Count 133 L Sodium 146 H Potassium 4.4 Chloride 108 Carbon Dioxide 26 BUN 8 L Creatinine 0.78 Narrative Narrative: EKG 05/2022 Vent. Rate : 078 BPM ? ? Atrial Rate : 078 BPM ?? P-R Int : 154 ms? QRS Dur : 080 ms ? ? QT Int : 386 ms ? ? ? P-R-T Axes : 057 070 040 degrees ?? QTc Int : 440 ms ? Normal sinus rhythm Possible Left atrial enlargement Borderline ECG When compared with ECG of 18-MAY-2020 09:09, Heart rate has decreased Airway Mallampati Class: I TM Dist: >3cm Neck ROM: Limited Denture: Upper Loose/Missing/Broken Teeth: Yes (Crowned lower molars) Heart: RRR Lungs: CTAB Assessment and Plan Assessment Anesthesia Assessment: Anesthesia Plan Discussed and PAT Visit Documented by User: Chiqui Aguayo MD 05/20/22 09:29 [facility] Past Medical History Medical History Abdominal pain Chronic GERD IGNACIO I (cervical intraepithelial neoplasia I) Edema History of tachycardia Leg edema Mild recurrent major depression Neck pain Pernicious anemia Pure hypercholesterolemia Recent surgical procedure on lower extremity Shoulder pain, right Family History Family History Father HTN (hypertension) Diabetes Mother HTN (hypertension) Diabetes Surgical History Surgical History H/O abdominoplasty H/O thyroidectomy History of colonoscopy History of tubal ligation Hx of gastric bypass History of Problems with Anesthesia: No Social History Social History Housing: House Are you a primary home care music therapist to a significant other at home: No Do you 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) Alcohol intake: current Alcohol intake frequency: a few times a month Patient Tobacco Use Status: Former Tobacco user Quit Date: 10 yrs ago Tobacco use type: Cigarette e-Cigarette/Vaping Use: Never Used Second Hand Smoke Exposure: Yes service: No Current occupational status: disabled Sexual orientation: Straight/Heterosexual Gender identity: Female Cognitive needs: No Hearing needs: No Vision needs: Yes Meds Allergies Allergy/AdvReac Type Severity Reaction Status Date / Time No Known Allergies Allergy Verified 05/13/22 12:30 Assessment and Plan Assessment Anesthesia Assessment: Chart Reviewed Final Anesthetic Review History of Problems with Anesthesia: No NPO: Yes ASA Class: II Final Preanesthetic Review: Meds/Allgs Chart Reviewed, Consent Obtained/Reviewed and Anes Risks/Benef Reviewed Patient Risk: Low Procedure Risk: Intermediate Anesthetic Plan Anesthetic Plan: MAC: Disposition: Standard PACU
[2022-05-20 08:24] VITALS: BP 124/76; PULSE 77; RESP 18; TEMP 36.1; O2SAT 97
[2022-05-20] MEDS: Lactated Ringers 1,000 ML 100 ML IVCONT (08:58)
--- NOTE | 2022-05-20 09:14 | MHC.SHP ---
Pre-Procedural Eval Section A Date of Service: 05/20/22 Section B Chief Complaint: reflux disease,screening Relevant Family History (Specify if Yes): No Relevant Social History: None Present Medications: see Short Stay Collaborative assessment Medical History: Significant History (Abdominal pain Chronic GERD IGNACIO I (cervical intraepithelial neoplasia I) Edema History of tachycardia Leg edema Mild recurrent major depression Neck pain Pernicious anemia Pure hypercholesterolemia Recent surgical procedure on lower extremity Shoulder pain, right) History of Previous Operations: Relevant previous surgery/procedure and date(s) (H/O abdominoplasty H/O thyroidectomy History of colonoscopy History of tubal ligation Hx of gastric bypass) Allergies: Allergies Allergy/AdvReac Type Severity Reaction Status Date / Time No Known Allergies Allergy Verified 05/13/22 12:30 Review of Systems Sugical H&P ROS: Negative: Constitution, Cardiovascular, Respiratory, Neurological, Psychiatric, Hem-Onc, Allergic/Immunologic, Gastrointestinal, Genitourinary, Musculoskeletal, Integumentary, Endocrine and Eyes/Ears/Nose/Throat Exam Surgical H&P Exam: Normal: HEENT, Normal: Heart, Normal: Lungs, Normal: Extremities, Normal: Abdomen, Normal: Skin and Normal: Neurological Plan Diagnosis/Plan: Unchanged I have reviewed the history and physical and performed a pertinent physical examination on my patient. No changes have occurred unless specified.
--- NOTE | 2022-05-20 09:15 | W.PM.OPN ---
Operative Note Operative Note Date of Service: 05/20/22 Narrative: Operative Information Procedure Description: EGD, Colonoscopy Indication: GERD, screening colonoscopy--hx of gastric sleeve Anesthesia: MAC FLEXIBLE TRANSORAL UPPER GASTROINTESTINAL ENDOSCOPY AND COLONOSCOPY PROCEDURE NOTE UPPER ENDOSCOPY Consent: Indications for the procedure and potential complications of bleeding, perforation, reaction to medications and missed diagnosis were discussed with the patient and informed consent was obtained. Instrument: Olympus GIF H 190 J mid size upper endoscope Monitoring: Vital signs and clinical assessment, continuous EKG monitoring, Pulse oximetry, Carbon Dioxide monitoring and blood pressure monitoring were done throughout the procedure. Procedure: The patient was placed in the left lateral decubitis position and pre-procedure medications were administered and a bite block was placed. The endoscope was inserted into the mouth and advanced under direct vision to the third part of duodenum. A careful inspection was made as the upper endoscope was withdrawn including a retroflexed examination of the proximal stomach; Findings and interventions are described below. Findings: Larynx:normal Esophagus: GE junction at 37 cm, diaphragm hiatus at 35 cm, consistent with 2 cm hiatal hernia, LA grade C erosive esophagitis with streaky areas noted in distal esophagus, bx taken Stomach: Normal mucosa with tightness at proximal stomach. Biopsies were obtained. Grade 2 flap valve on retroflexed examination of the cardia. Duodenum: Normal bulb and descending duodenum, bx taken Intervention: Biopsies as noted above COLONOSCOPY Instrument: Olympus variable stiffness pediatric scope 190L Colonoscopy Monitoring: Vital signs and clinical assessment, continuous EKG monitoring, Pulse oximetry, Carbon Dioxide monitoring and blood pressure monitoring were done throughout the procedure. Colon withdrawal time was 8 minutes. Procedure: The patient was placed in the left lateral decubitis position and pre-procedure medications were administered. After a digital rectal examination of the ano-rectum, the video colonoscope was inserted into the rectum and advanced through the colon to the cecum/TI. The colonoscope was slowly withdrawn in a retrograde panoramic fashion and the colon mucosa was carefully examined including a retroflexed view of the rectum. Findings and interventions are described below. Procedure Difficulty: easy Findings: Terminal Ileum-normal Cecum:normal Ascending Colon: normal Transverse Colon -5-6 mm sessile polyp removed with cold forceps Descending Colon:normal Sigmoid Colon: normal Rectum: Retroflexion with medium sized internal hemorrhoids and external hemorrhoid, grade I Anorectum - normal Colon preparation: [place] Bowel Preparation Scale Right colon; 2 Transverse colon: 2 Left colon; 3 (0 = Unprepared colon segment with mucosa not seen due to solid stool that cannot be cleared. 1 = Portion of mucosa of the colon segment seen, but other areas of the colon segment not well seen due to staining, residual stool and/or opaque liquid. 2 = Minor amount of residual staining, small fragments of stool and/or opaque liquid, but mucosa of colon segment seen well. 3 = Entire mucosa of colon segment seen well with no residual staining, small fragments of stool or opaque liquid) Impression and Post Procedure Diagnosis: Endoscopy Findings: hiatal hernia erosive esophagitis tight proximal stomach prob degree of stenosis from sleeve, maybe contributing to the esophagitis and reflux Colonoscopy Findings: polyps internal hemorrhoids, external hemorrhoid Plan: Await Pathology results Repeat Colonoscopy in 5 years due to adenomatous polyp or earlier if clinically indicated High fiber diet leaflet avoid straining at stool, epsom salts and sitz bath, anusol supps or cream check compliance with PPI, if still sx then consider rigid balloon dilation of stomach repeat EGD in 3-6 months with high dose PPI surgical referral if symptomatic hemorrhoids Above findings were reviewed with the patient and relevant handouts were provided if indicated.
[2022-05-20 10:07] VITALS: BP 102/66; PULSE 89; RESP 18; TEMP 36.1; O2SAT 100
[2022-05-20 10:22] VITALS: BP 117/73; PULSE 92; RESP 18; O2SAT 100
[2022-05-20] MEDS: Ibuprofen 600 MG TABLET PO (10:33)
[2022-05-20 10:37] VITALS: BP 122/68; PULSE 80; RESP 16; TEMP 36.6; O2SAT 98
== END 2022-05-20 11:50 | disposition home or self-care (01) ==
PROVIDERS: PCP Internal Medicine; Visit Provider Internal Medicine Gastroenterology
PROC: (CPT 45380; principal; 2022-05-20 09:20)
DX: Z12.11 Encounter for screening for malignant neoplasm of colon (principal); D12.3 Benign neoplasm of transverse colon; K21.9 Gastro-esophageal reflux disease without esophagitis; K29.50 Unspecified chronic gastritis without bleeding; K20.80 Other esophagitis without bleeding; Z98.84 Bariatric surgery status; K64.0 First degree hemorrhoids; K64.4 Residual hemorrhoidal skin tags; K44.9 Diaphragmatic hernia without obstruction or gangrene; E78.00 Pure hypercholesterolemia, unspecified; D51.0 Vitamin B12 deficiency anemia due to intrinsic factor deficiency; R60.0 Localized edema; N87.0 Mild cervical dysplasia; F33.0 Major depressive disorder, recurrent, mild; Z79.899 Other long term (current) drug therapy; Z87.891 Personal history of nicotine dependence
CPT/HCPCS: 45380; 43239; 88305; 88312; 88342; 93005

== ENCOUNTER → 2022-06-01 11:12 | Outpatient (BNVA) | payer OTHER, SELFPAY | PROVIDERS: PCP Internal Medicine; Visit Provider Physician Assistant | DX: K21.9 Gastro-esophageal reflux disease without esophagitis (principal); K22.70 Barrett's esophagus without dysplasia; D36.9 Benign neoplasm, unspecified site | CPT/HCPCS: 99212 ==

== ENCOUNTER 2022-09-10 15:01 | Outpatient (REF) | payer OTHER, SELFPAY ==
[2022-09-15 13:49] LABS: HPV mRNA E6/E7 rflx Not Detected (Not Detected)
== END 2022-09-10 15:02 | disposition home or self-care (01) ==
LOC: HO.LNP 15:01
PROVIDERS: PCP Internal Medicine; Visit Provider Obstetrics & Gynecology
DX: Z01.419 Encounter for gynecological examination (general) (routine) without abnormal findings (principal)
CPT/HCPCS: 87624; 88142

== ENCOUNTER 2022-10-15 11:39 | Outpatient (REF) | payer OTHER, SELFPAY ==
[2022-10-15 12:57] LABS: Alanine Aminotransferase 33 U/L (0-31); Albumin Level 4.3 g/dL (3.5-5.0); Alkaline Phosphatase 91 U/L (39-117); Anion Gap 15 (12-20); Aspartate Amino Transferase 48 U/L (5-31); Bilirubin Total 2.1 mg/dL (0.0-1.0); Blood Urea Nitrogen 11 mg/dL (9-16); Calcium 9.6 mg/dL (8.4-10.2); Carbon Dioxide 29 mmol/L (22-29); Chloride 107 mmol/L (96-108); Cholesterol 308 mg/dL; Estimated Glomerular Filt Rate > 60; Glucose Fasting 87 mg/dL (60-99); HDL Cholesterol 90 mg/dL; LDL Cholesterol Calculated 199 mg/dl; Potassium 4.8 mmol/L (3.3-5.1); Sodium 146 mmol/L (135-145); Triglycerides 97 mg/dL
[2022-10-15 13:11] LABS: Vitamin D 25-OH Total 8.3 ng/mL (>30)
== END 2022-10-15 11:40 | disposition home or self-care (01) ==
LOC: HO.LAB 11:39
PROVIDERS: PCP Internal Medicine; Visit Provider Internal Medicine
DX: E78.00 Pure hypercholesterolemia, unspecified (principal); E55.9 Vitamin D deficiency, unspecified
CPT/HCPCS: 36415; 80053; 80061; 82306

== ENCOUNTER → 2023-01-04 14:00 | Outpatient (BNV) | payer OTHER, SELFPAY | PROVIDERS: PCP Internal Medicine; Visit Provider Radiology Diagnostic Radiology | DX: Z12.31 Encounter for screening mammogram for malignant neoplasm of breast (principal) | CPT/HCPCS: 77063; 77067 ==

== ENCOUNTER 2023-01-04 14:11 | Outpatient (REF) | payer OTHER, SELFPAY ==
--- NOTE | ~2023-01-04 | MM_ITS ---
EXAMINATION: MM SCREENING DIGITAL BREAST TOMOSYNTHESIS, BILATERAL CLINICAL INFORMATION: Screening. Asymptomatic. History of bilateral breast reduction. The lifetime risk of breast cancer based on the Tyrer-Cuzick Model is 4.5%. COMPARISON: Mammography: This study is compared with prior exams dating back to 2017. TECHNIQUE: Digital breast tomosynthesis is performed in both the craniocaudal and mediolateral oblique views along with computer-aided detection (CAD). Synthesized 2D images are generated from the tomosynthesis. FINDINGS: There are scattered areas of fibroglandular density (ACR BI-RADS breast composition Category b). There are no significant masses, abnormal calcifications, or other abnormalities. Post reduction changes are present in each breast. MM/MM tomosynthesis screening BI IMPRESSION: No mammographic evidence of malignancy. ASSESSMENT: BI-RADS BI-RADS 2 - Benign Findings RECOMMENDATION: Routine annual mammography screening. 1 year F/U This examination should not preclude the clinical evaluation of a suspicious palpable abnormality. This patient's information was entered into a reminder system with a target due date for their next mammogram.
== END 2023-01-04 14:12 | disposition home or self-care (01) ==
LOC: HO.MAMMO 14:11
PROVIDERS: PCP Internal Medicine; Visit Provider Obstetrics & Gynecology
DX: Z12.31 Encounter for screening mammogram for malignant neoplasm of breast (principal)
CPT/HCPCS: 77063; 77067

== ENCOUNTER 2023-01-28 14:00 | Outpatient (AMB) | payer OTHER, SELFPAY ==
[2023-01-28 14:01] VITALS: BP 130/82; PULSE 96; O2SAT 98; BMI 29.8
--- NOTE | 2023-01-28 14:01 | MHC.PC.OV ---
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 Accompanied by: Self / Same As Patient Allergies No Known Allergies Allergy (Verified 01/28/23 14:26) Medication List - Last Reconciled 01/28/23 by Bell Peters MD atorvastatin 20 mg PO DAILY 90 days cholecalciferol (vitamin D3) 125 mcg PO DAILY 90 days diclofenac sodium 1% (Arthritis Pain (diclofenac)) 2 grams topical QID 30 days diphenhydramine-zinc acetate 2-0.1 % (Benadryl Extra Strength) 1 appl topical BID PRN 30 days famotidine 20 mg PO DAILY 90 days furosemide 10 mg (1/2 x 20 mg) PO QAM 90 days Grab bar As directed Grab bar As directed loratadine (Allergy Relief (loratadine)) 10 mg PO DAILY PRN 30 days montelukast 10 mg PO BEDTIME nystatin 1 appl topical BID PRN 14 days omeprazole 40 mg PO DAILY PRN 90 days oxycodone-acetaminophen 10-325 mg 1 tab PO TID PRN 30 days sertraline 25 mg PO DAILY 90 days Shower Chair As directed sucralfate (Carafate) 10 mL PO BID [toilet seat elevator As directed] [toilet seat elevator As directed] triamcinolone acetonide 0.5% 1 appl topical BID PRN Tobacco use date assessed: 01/28/23 Fall risk assessment: No Falls in past year Last assessed Fall Risk: 01/28/23 HPI HPI Comments History of Present Illness Details This is a 62-year-old female with mild recurrent major depression, chronic GERD, pure hypercholesterolemia and low vitamin-D that comes accompanied by the son son's girlfriend for follow-up on her conditions. Has depression and would like to restart SSRIs. GERD stable with omeprazole. Last cholesterol was elevated but she has been out of statins for the last month and I will repeat lipid panel in 6 months. Also has been out of vitamin-D and she will restarted. No chest pain or shortness of breath. Has chronic neck pain relieved by opiates as needed. [facility] Medical History (Updated 01/28/23 @ 14:51 by Bell Peters MD) Abdominal pain Chronic GERD IGNACIO I (cervical intraepithelial neoplasia I) Edema History of tachycardia Leg edema Mild recurrent major depression Neck pain Pernicious anemia Pure hypercholesterolemia Recent surgical procedure on lower extremity Shoulder pain, right Surgical History H/O abdominoplasty H/O thyroidectomy History of colonoscopy History of esophagogastroduodenoscopy (EGD) History of tubal ligation Hx of gastric bypass Family History Father HTN (hypertension) Diabetes Mother HTN (hypertension) Diabetes Social History Housing: House Are you a primary skin care therapist to a significant other at home: No Do you presently have 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 How often do you have a drink containing alcohol?: Monthly or less 2. How many drinks containing alcohol do you have on a typical day when you are drinking?: 1 or 2 3. How often do you have six or more drinks on one occasion?: Never Total Score: 1 CAROLINA-7 AMB Questionnaire CAROLINA-7 Date CAROLINA - 7 assessed: 09/09/22 Source: Developed by Drs. Ty Gonzáles, Inocencia Arambula, Stephane Peter and colleagues, with an educational thor from [employer]. Review of Systems Const All systems reviewed & are unremarkable except as noted in HPI and below Eyes Reports no additional complaints, Denies change in vision and Denies other visual disturbances Card Denies chest pain at rest, Denies chest pain with activity, Denies edema, Denies irregular heart rhythm, Denies claudication, Denies dyspnea, Denies dyspnea on exertion, Denies orthopnea, Denies paroxysmal nocturnal dyspnea and Denies slow heart rate Resp Denies cough, Denies dyspnea and Denies dyspnea on exertion GI Denies abdominal pain, Denies change in bowel habits, Denies excessive flatus, Denies nausea and Denies vomiting Denies urinary incontinence, Denies urinary hesitancy and Denies urinary urgency Musc Denies abnormal gait, Denies atrophy, Denies deformity and Denies limited range of motion Skin/Breast Denies bleeding lesions, Denies changing lesions and Denies rash Neuro Denies abnormal gait and Denies lack of coordination Physical exam (Primary Care) Vital Signs: Last Vital Signs Pulse 96 01/28/23 14:01 BP 130/82 01/28/23 14:01 Pulse Ox 98 01/28/23 14:01 Oxygen Delivery Method Room Air 01/28/23 14:01 BMI result Body Mass Index 29.8 Tobacco/Smoking Status: Tobacco use Status Tobacco use date assessed 01/28/23 01/28/23 14:02 Patient Tobacco Use Status Former Tobacco user 01/28/23 14:02 Tobacco use type Cigarette 01/28/23 14:02 e-Cigarette/Vaping Use Never Used 01/28/23 14:02 Thrive Assessment: Date of Thrive Assessment Date Thrive assessed 09/09/22 01/28/23 14:02 Eyes General: appearance normal, both eyes and all related structures Eyelids: Yes eyelids normal Conjunctivae: conjunctivae normal Neck Neck: Yes normal visual inspection and Yes supple Resp Effort & Inspection: normal respiratory effort Auscultation: clear to auscultation bilaterally Cardio Jugular venous distension: no JVD Rate: regular rate Rhythm: regular rhythm Heart sounds: S1 normal heart sound present and S2 normal heart sound present Extrem General: Yes full ROM Assessment and Plan Assessment & Plan (1) Chronic GERD: Comment: Continue ppi, carafate, avoid culprits- Mild epigastric tenderness Code(s): K21.9 - Gastro-esophageal reflux disease without esophagitis Plan: Continue PPIs (2) Pure hypercholesterolemia: Code(s): E78.00 - Pure hypercholesterolemia, unspecified Plan: Restart statins. (3) Mild recurrent major depression: Code(s): F33.0 - Major depressive disorder, recurrent, mild Plan: Restart SSRIs (4) Hypovitaminosis D: Code(s): E55.9 - Vitamin D deficiency, unspecified Plan: Restart vitamin-D supplements Orders: Orders Lipid Panel 6 Months E78.5 - Hyperlipidemia, unspecified Vitamin D 25-OH Total 6 Months E55.9 - Vitamin D deficiency, unspecified Vitamin B12 and Folate 6 Months E53.8 - Deficiency of other specified B group vitamins Comprehensive [place]. Panel Fast 6 Months E78.00 - Pure hypercholesterolemia, unspecified Referrals Dermatology Referral L25.9 - Unspecified contact dermatitis, unspecified cause Medications: Refilled atorvastatin 20 mg PO DAILY 90 tabs 1RF 90 days cholecalciferol (vitamin D3) 125 mcg PO DAILY 90 caps 1RF 90 days sertraline 25 mg PO DAILY 90 tabs 0RF 90 days triamcinolone acetonide 0.5% 1 appl topical BID PRN 15 grams 0RF puritis L25.9 - Unspecified contact dermatitis, unspecified cause Discontinued famotidine Discontinued Reason: Patient Completed Course 20 mg PO DAILY 90 days 90 tabs 1RF Coding Level of Care Code Est Pt Level 4 (20150) Diagnoses Chronic GERD K21.9 Pure hypercholesterolemia E78.00 Mild recurrent major depression F33.0 Hypovitaminosis D E55.9 Time Spent (min) 22
== END 2023-01-28 14:39 | disposition home or self-care (01) ==
PROVIDERS: PCP Internal Medicine; Visit Provider Internal Medicine
DX: K21.9 Gastro-esophageal reflux disease without esophagitis (principal); E78.00 Pure hypercholesterolemia, unspecified; F33.0 Major depressive disorder, recurrent, mild; E55.9 Vitamin D deficiency, unspecified
CPT/HCPCS: 99214

== ENCOUNTER 2023-09-03 07:10 | Outpatient (REF) | payer MEDICARE, MEDICAID, SELFPAY ==
[2023-09-03 09:04] LABS: Alanine Aminotransferase 24 U/L (0-31); Alkaline Phosphatase 112 U/L (39-117); Anion Gap 13 (12-20); Aspartate Amino Transferase 47 U/L (5-31); Bilirubin Total 1.6 mg/dL (0.0-1.0); Blood Urea Nitrogen 7 mg/dL (9-16); Calcium 9.8 mg/dL (8.4-10.2); Carbon Dioxide 30 mmol/L (22-29); Chloride 106 mmol/L (96-108); Cholesterol 272 mg/dL (<200); Estimated Glomerular Filt Rate > 60; Glucose Fasting 94 mg/dL (60-99); HDL Cholesterol 84 mg/dL (>40); LDL Cholesterol Calculated 165 mg/dL (<100); Potassium 4.4 mmol/L (3.3-5.1); Sodium 145 mmol/L (135-145); Total Protein 7.6 g/dL (6.5-8.0); Triglycerides 117 mg/dL (<150); Vitamin D 25-OH Total 6.1 ng/mL (>30)
[2023-09-03 09:13] LABS: Folate 7.8 ng/mL (> or = 4.0); Vitamin B12 363 pg/mL (200-900)
== END 2023-09-03 07:11 | disposition home or self-care (01) ==
LOC: HO.LAB 07:10
PROVIDERS: PCP Internal Medicine; Visit Provider Internal Medicine
DX: E78.5 Hyperlipidemia, unspecified (principal); E55.9 Vitamin D deficiency, unspecified; E53.8 Deficiency of other specified B group vitamins; E78.00 Pure hypercholesterolemia, unspecified
CPT/HCPCS: 36415; 80053; 80061; 82306; 82607; 82746

== ENCOUNTER 2023-09-06 13:26 | Outpatient (AMB) | payer MEDICARE, MEDICAID, SELFPAY ==
--- NOTE | 2023-09-06 13:53 | AM.OFFVISMDC ---
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 Accompanied by: Self / Same As Patient Allergies No Known Allergies Allergy (Verified 09/06/23 14:20) Medication List - Last Reconciled 09/06/23 by Bell Peters MD atorvastatin 20 mg PO DAILY 90 days cholecalciferol (vitamin D3) 125 mcg PO DAILY 90 days diclofenac sodium 1% (Arthritis Pain (diclofenac)) 2 grams topical QID 30 days diphenhydramine-zinc acetate 2-0.1 % (Benadryl Extra Strength) 1 appl topical BID PRN 30 days furosemide 10 mg (1/2 x 20 mg) PO QAM 90 days Grab bar As directed Grab bar As directed loratadine (Allergy Relief (loratadine)) 10 mg PO DAILY PRN 30 days montelukast 10 mg PO BEDTIME nystatin 1 appl topical BID PRN 14 days omeprazole 40 mg PO DAILY PRN 90 days oxycodone-acetaminophen 10-325 mg 1 tab PO TID PRN 30 days sertraline 25 mg PO DAILY 90 days Shower Chair As directed sucralfate (Carafate) 10 mL PO BID [toilet seat elevator As directed] [toilet seat elevator As directed] triamcinolone acetonide 0.5% 1 appl topical BID PRN HPI HPI Comments History of Present Illness Details This is a 63-year-old female with mild recurrent major depression that comes for her physical exam. Depression stable with SSRIs. Last mammogram was 2022. Last colonoscopy was 2021. Bone density will be order. No chest pain or shortness of breath. [facility] Medical History (Updated 09/06/23 @ 14:49 by Bell Peters MD) History of tachycardia Pernicious anemia Mild recurrent major depression Pure hypercholesterolemia Chronic GERD Shoulder pain, right Abdominal pain IGNACIO I (cervical intraepithelial neoplasia I) Leg edema Neck pain Recent surgical procedure on lower extremity Edema Surgical History History of esophagogastroduodenoscopy (EGD) Hx of gastric bypass History of colonoscopy H/O abdominoplasty History of tubal ligation H/O thyroidectomy Family History Father HTN (hypertension) Diabetes Mother HTN (hypertension) Diabetes Social History Housing: House Are you a primary healthcare recruiter to a significant other at home: No Do you presently have visiting nurse 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) Alcohol intake: current Alcohol intake frequency: a few times a month Comment: medicated with ibuprofen previously Patient Tobacco Use Status: Former Tobacco user Quit Date: 10 yrs ago Tobacco use type: Cigarette e-Cigarette/Vaping Use: Never Used Second Hand Smoke Exposure: Yes service: No Current occupational status: disabled Sexual orientation: Straight/Heterosexual Gender identity: Female Cognitive needs: No Hearing needs: No Vision needs: Yes Questionnaire Medicare Wellness Checkup [age] What gender do you identify with?: female During the past 4 weeks, how much have you been bothered by emotional problems such as feeling anxious, depressed, irritable, sad or downhearted, and blue?: moderately During the past 4 weeks, has your physical & emotional health limited your social activities with family, friends, neighbors, or groups?: quite a bit During the past 4 weeks, how much bodily pain have you generally had?: severe pain During the past 4 weeks, was someone available to help you if you needed & wanted help?: yes, some During the past 4 weeks, what was the hardest physical activity you could do for at least 2 minutes?: very light Can you get to places out of walking distance without help? (For eg., can you travel alone on buses, taxis or drive your car?): No Can you go shopping for groceries or clothes without someone's help?: No Can you prepare your own meals?: No Can you do your housework without help?: No Because of any health problems, do you need the help of another person with your personal care needs such as eating, bathing, dressing or getting around the house?: Yes Can you handle your own money without help?: Yes During the past 4 weeks, how would you rate your health in general?: poor During the past 4 weeks how have things been going for you?: good & bad parts about equal Are you having difficulties driving your car?: sometimes Do you always fasten your seat belt when you are in a car?: yes, usually During past 4 weeks, have you been bothered by the following: never: Sexual problems?, Teeth or denture problems? and Problems using the telephone?, seldom: Falling or dizzy when standing up, sometimes: Tiredness or fatigue? and often: Trouble eating well? Have you fallen 2 or more times in the past year?: No Are you afraid of falling?: Yes Are you a smoker?: no During the past 4 weeks, how many drinks of wine, beer, or other alcoholic beverages did you have?: no alcohol at all Do you exercise for about 20 minutes 3 or more times a week?: no, I usually do not exercise this much Have you been given information to help with the following?: yes: Keeping track of your medications? and no: Hazards in your house that might hurt you? How often do you have trouble taking medicines the way you have been told to take them?: I always take medicine as prescribed How confident are you that you can control & manage most of your health problems?: not very confident What is your race?: or origin or descent Mini Mental State Exam (MMSE) Orientation What is the (year) (season) (date) (day) (month)?: year, season, date, day and month Where are we (state) (county) (town or city) (hospital) (floor)?: state, county, town or city, hospital/clinic and floor Registration Name of 3 unrelated objects clearly and slowly, then ask patient to repeat all 3 of them. (1st repeat determines score. Make sure they can repeat all three): object 1, object 2 and object 3 Attention & Calculation (CHOOSE ONE) Spell WORLD backwards (DLROW): 4 letters Recall Ask patient to repeat the 3 items from question #3.: object 1 and object 2 Language Show patient a wristwatch & ask what it is. Repeat for pencil.: watch and pencil Ask the patient to repeat the phrase 'No ifs, ands, or buts' after you.: correct Ask the patient to 'take a piece of paper with their right hand' 'fold paper in half' 'place paper on floor': take paper in right hand, fold paper in half and place paper on floor Print the sentence 'CLOSE YOUR EYES' on a piece. If patient actually closes eyes then score.: followed written direction Give patient a blank piece of paper & ask to write a sentence. Score if it contains a noun & verb.: sentence contains subject and verb Score Score: 27 Activity of Daily Living Bathing - sponge bath, tub bath or shower: receives help in bathing more than one body part (or not bathed) Dressing - getting clothes from closets & drawers, including inner/outer garments & fasteners.: receives help getting clothes or getting dressed, or stays undressed Toileting - going to the 'toilet room' for urine/bowel elimination & cleaning self/arranging clothes: receives help going to toilet room, cleaning self or arranging clothes Transfer: moves in & out of bed and chair without help (may use support object) Continence: controls urination/bowel movements completely by self Feeding: feeds self without help Total Score: 2 Information obtained from: patient Using telephone: independent Traveling: needs assistance Shopping: needs assistance Preparing meals: needs assistance Housework: dependent Taking medicine: independent Managing money: independent PHQ-9 Over the last 2 weeks, how often have you been bothered by any of the following problems? 1. Little interest or pleasure in doing things: more than half the days 2. Feeling down, depressed, or hopeless: more than half the days 3. Trouble falling or staying asleep, or sleeping too much: several days 4. Feeling tired or having little energy: more than half the days 5. Poor appetite or overeating: more than half the days 6. Feeling bad about yourself - or that you are a failure or have let yourself or your family down: not at all 7. Trouble concentrating on things, such as reading the newspaper or watching television: nearly every day 8. Moving or speaking so slowly that other people could have noticed. Or the opposite - being so fidgety or restless that you have been moving around a lot more than usual: not at all 9. Thoughts that you would be better off or of hurting yourself in some way: not at all Total score: 12 Depression Screening Interpretation: Negative Depression Screening Done: Yes 70133 - PHQ-9 Billing: Yes Source: Developed by Drs. Ty Gonzáles, Inocencia Arambula, Stephane Peter and colleagues, with an educational thor from [employer]. AUDIT C Alcohol Use Questionnaire (AUDIT-C) 1. How often do you have a drink containing alcohol?: Never Total Score: 0 Thrive Questionnaire Date Thrive assessed: 09/06/23 I am a: Patient What is your living situation today?: I have a steady place to live Within the past 12 months, did the food you bought not last and you didn't have the money to get more?: Never true Within the past 12 months, did you worry whether your food would run out before you got money to buy more?: Never true Do you have trouble paying for medicines?: No Do you have trouble getting transportation to medical appointments?: No Do you have trouble paying your heating and electricity bill?: No Do you have trouble taking care of your child, family member or friend?: No Do you have trouble with day-to-day activities such as bathing, preparing meals, shopping, managing finances, etc.?: Yes Are you currently unemployed and looking for a job?: No Are you interested in more education?: No Please select the resources that you would like help with: None Currently or been in a relationship where the following occur: no concerns reported THRIVE Score: 0 Fall Risk Assessment Fall Risk Assessment Fall risk assessment: No Falls in past year CAROLINA-7 AMB Questionnaire CAROLINA-7 Date CAROLINA - 7 assessed: 09/06/23 Feeling nervous, anxious, or on edge: 1 = Several days Not being able to stop or control worryin = Not at all Worrying too much about different things: 0 = Not at all Trouble relaxin = Not at all Being so restless that it is hard to sit still: 0 = Not at all Becoming easily annoyed or irritable: 0 = Not at all Feeling afraid as if something awful might happen: 0 = Not at all Total CAROLINA-7 score (0-4 normal; 5-9 mild; 10-14 moderate; 15-21 severe): 1 Source: Developed by Drs. Ty Gonzáles, Stephane Rubin and colleagues, with an educational thor from [employer]. CAROLINA-7 Assessment Billing CAROLINA-7 Assessment Tool: CAROLINA-7 Assessment 92868 Review of Systems Const All systems reviewed & are unremarkable except as noted in HPI and below Eyes Reports no additional complaints, Denies change in vision and Denies other visual disturbances Card Denies chest pain at rest, Denies chest pain with activity, Denies edema, Denies irregular heart rhythm, Denies claudication, Denies dyspnea, Denies dyspnea on exertion, Denies orthopnea, Denies paroxysmal nocturnal dyspnea and Denies slow heart rate Resp Denies cough, Denies dyspnea and Denies dyspnea on exertion GI Denies abdominal pain, Denies change in bowel habits, Denies excessive flatus, Denies nausea and Denies vomiting Denies urinary incontinence, Denies urinary hesitancy and Denies urinary urgency Musc Denies abnormal gait, Denies atrophy, Denies deformity and Denies limited range of motion Skin/Breast Denies bleeding lesions, Denies changing lesions and Denies rash Neuro Denies abnormal gait, Denies behavioral changes, Denies confusion and Denies lack of coordination Psych Denies behavioral changes and Denies confusion Physical Exam Vital Signs: Last Vital Signs BP 110/72 09/06/23 13:54 BMI result Body Mass Index 31.0 Const General: No confusion Orientation/consciousness: patient oriented x3 and No confusion Resp Effort & Inspection: normal respiratory effort Auscultation: clear to auscultation bilaterally Cardio Jugular venous distension: no JVD Rate: regular rate Rhythm: regular rhythm Heart sounds: S1 normal heart sound present and S2 normal heart sound present Neuro General: patient oriented x3, no focal motor deficits and No confusion Romberg Test: Negative Extrem General: Yes full ROM Psych Appearance: grossly normal Assessment & Plan Assessment & Plan (1) Encounter for annual wellness exam in Medicare patient: Code(s): Z00.00 - Encounter for general adult medical examination without abnormal findings Plan: Repeat in a year. (2) Mild recurrent major depression: Code(s): F33.0 - Major depressive disorder, recurrent, mild Plan: Continue SSRIs. Orders: Orders US venous duplex LE LT Today M79.605 - Pain in left leg Drug Screen Urine Today F11.90 - Opioid use, unspecified, uncomplicated Opiates GCMS Expanded, Ur Today F11.90 - Opioid use, unspecified, uncomplicated Lipid Panel 6 Months E78.5 - Hyperlipidemia, unspecified Comprehensive [place]. Panel Fast 6 Months E78.00 - Pure hypercholesterolemia, unspecified XR DEXA axial skeleton Today N95.9 - Unspecified menopausal and perimenopausal disorder Quality Reporting (2019) Fall Risk Screening ([facility] 139) Fall risk assessment: No Falls in past year Depression/Bipolar (159/160/161/177) PHQ-9: Total score: 12 Coding Level of Care Code Medicare First (G0438) Diagnoses Encounter for annual wellness exam in Medicare patient Z00.00 Mild recurrent major depression F33.0 Additional Codes CAROLINA-7 Assessment Billing - CAROLINA-7 Assessment Tool: CAROLINA-7 Assessment [id number] ([id number]) Time Spent (min) 35 Advance Care Planning Advance Care Planning discussion: Exists, not on file
[2023-09-06 13:54] VITALS: BP 110/72; BMI 31.0
== END 2023-09-06 14:42 | disposition home or self-care (01) ==
PROVIDERS: PCP Internal Medicine; Visit Provider Internal Medicine
DX: Z00.00 Encounter for general adult medical examination without abnormal findings (principal); F33.0 Major depressive disorder, recurrent, mild
CPT/HCPCS: 99213; G0438

== ENCOUNTER 2023-09-06 15:06 | Outpatient (REF) | payer MEDICARE, MEDICAID, SELFPAY ==
--- NOTE | ~2023-09-06 | US_ITS ---
EXAMINATION: US VENOUS ULTRASOUND WITH DOPPLER LOWER EXTREMITY, LEFT CLINICAL INFORMATION: Left lower extremity pain. COMPARISON: 12/30/2015 TECHNIQUE: Ultrasound of the deep veins is performed from the hip to the calf with compression sonography and color and pulse Doppler assessment. Spectral analysis with color-flow imaging is performed. FINDINGS: There is occlusive thrombus involving the proximal femoral vein through the popliteal vein. There is lack of compressibility. Normal venous compression and flow in the visualized common femoral vein, saphenofemoral junction and profunda femoral vein. US/US venous duplex LE LT IMPRESSION: Occlusive thrombus proximal femoral vein through the popliteal vein. A preliminary report was called to the office at 4:00 PM on 09/06/2023.
[2023-09-06 18:44] LABS: Amphetamine Screen Urine Not Detected (Not Detect); Barbiturates, Urine Not Detected (Not Detect); Benzodiazepines Screen Urine Not Detected (Not Detect); Cannabinoid Screen Urine Not Detected (Not Detect); Cocaine Screen Urine Not Detected (Not Detect); Fentanyl, urine Not Detected (Not Detect); Opiate Screen Urine Not Detected (Not Detect); Phencyclidine Screen Urine Not Detected (Not Detect)
[2023-09-10 08:18] LABS: Codeine, Ur NEGATIVE; Hydrocodone, Ur NEGATIVE; Hydromorphone, Ur NEGATIVE; Morphine, Ur NEGATIVE; Oxycodone, Ur NEGATIVE; Oxymorphone, Ur NEGATIVE
[2023-09-10 08:19] LABS: Norhydrocodone, Ur NEGATIVE; Noroxycodone, Ur NEGATIVE
== END 2023-09-06 15:07 | disposition home or self-care (01) ==
LOC: HO.US 15:06
PROVIDERS: Visit Provider Internal Medicine
DX: Z13.89 Encounter for screening for other disorder (principal)
CPT/HCPCS: 80307; 80365; 93971; G0480

== ENCOUNTER 2023-09-06 16:22 | Emergency (ER) | payer MEDICARE, MEDICAID, SELFPAY ==
[2023-09-06 16:31] VITALS: BP 125/81; PULSE 89; RESP 18; TEMP 36.9; O2SAT 97; BMI 31.0
--- NOTE | 2023-09-06 16:32 | ED_ITS ---
HPI - Extremity Problem General Chief complaint: Extremity Injury, Lower Stated complaint: dr hairston told pt to come to ed us pos finding Time Seen by Provider: 09/06/23 16:32 Source: patient Mode of arrival: ambulatory Limitations: language barrier (Com[place]an-speaking medical legal investigator utilized) History of Present Illness HPI Narrative: Patient is a 63-year-old female presents emergency department for evaluation of left leg pain x3 weeks. No precipitating injury. Denies any history of DVT/PE, recent prolonged immobilization, recent surgery, personal history of malignancy. She had a routine appointment with her primary care provider today who ordered an outpatient ultrasound for further evaluation of leg pain and was advised that she had a blood clot in needed to come to the emergency department for further evaluation. When asked, she denies any chest pain, shortness of breath, difficulty breathing, dizziness, lightheadedness, numbness tingling or cold sensation to the foot. Related Data Previous Rx's Medication Instructions Recorded diclofenac sodium 1 % topical gel 2 g topical QID 30 days #100 grams 07/10/20 (Arthritis Pain (diclofenac)) montelukast 10 mg tablet 10 mg PO BEDTIME #10 tabs 09/08/21 Grab bar #2 ea 04/09/22 toilet seat elevator #1 ea 04/09/22 sucralfate 100 mg/mL oral 10 ml PO BID #420 mL 04/12/22 suspension (Carafate) nystatin 100,000 unit/gram topical 1 appl topical BID PRN rash 14 05/01/22 cream days #15 grams Grab bar #3 ea 07/09/22 Shower Chair #1 ea 07/09/22 diphenhydramine-zinc acetate 2 1 appl topical BID PRN itching 30 09/09/22 %-0.1 % topical cream (Benadryl days #28.3 grams Extra Strength) toilet seat elevator #1 ea 09/16/22 loratadine 10 mg tablet (Allergy 10 mg PO DAILY PRN allergy 11/13/22 Relief (loratadine)) symptoms 30 days #30 tabs triamcinolone acetonide 0.5 % 1 appl topical BID PRN puritis #15 01/28/23 topical cream grams furosemide 20 mg tablet 10 mg (1/2 x 20 mg) PO QAM 90 days 08/20/23 #45 tabs omeprazole 40 mg capsule,delayed 40 mg PO DAILY PRN gerd 90 days 08/20/23 release #90 caps oxycodone-acetaminophen 10 mg-325 1 tab PO TID PRN pain 30 days #90 08/20/23 mg tablet tabs apixaban 5 mg (74 tabs) tablets in 5 mg PO BID #74 ea 09/06/23 a dose pack (Eliquis DVT-PE Treat 30D Start) atorvastatin 20 mg tablet 20 mg PO DAILY 90 days #90 tabs 09/06/23 cholecalciferol (vitamin D3) 125 125 mcg PO DAILY 90 days #90 caps 09/06/23 mcg (5,000 unit) capsule sertraline 25 mg tablet 25 mg PO DAILY 90 days #90 tabs 09/06/23 Allergies Allergy/AdvReac Type Severity Reaction Status Date / Time No Known Allergies Allergy Verified 09/06/23 16:29 Review of Systems 2 Review of Systems: Yes all other systems are reviewed and are negative PMFSH Past Medical History Attestation statement: The following information was validated with the patient. Source: old records reviewed Medical History History of tachycardia Pernicious anemia Mild recurrent major depression Pure hypercholesterolemia Chronic GERD Shoulder pain, right Abdominal pain IGNACIO I (cervical intraepithelial neoplasia I) Leg edema Neck pain Recent surgical procedure on lower extremity Edema Surgical History History of esophagogastroduodenoscopy (EGD) Hx of gastric bypass History of colonoscopy H/O abdominoplasty History of tubal ligation H/O thyroidectomy Family History Family History (Updated 09/06/23 @ 14:26 by Bell Peters MD) Father HTN (hypertension) Diabetes Mother HTN (hypertension) Diabetes Social History Social History Housing: House Are you a primary health care recruiter to a significant other at home: No Do you presently have 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) Alcohol intake: current Alcohol intake frequency: a few times a month Comment: medicated with ibuprofen previously Patient Tobacco Use Status: Former Tobacco user Quit Date: 10 yrs ago Tobacco use type: Cigarette e-Cigarette/Vaping Use: Never Used Second Hand Smoke Exposure: Yes Advance Directives: No Advance Directives Information Provided: No service: No Current occupational status: disabled Sexual orientation: Straight/Heterosexual Gender identity: Female Cognitive needs: No Hearing needs: No Vision needs: Yes Physical Exam 2 Vital Signs: Vital Signs: Last Vital Signs Temp 97.2 F 09/06/23 19:44 Pulse 86 09/06/23 19:44 Resp 16 09/06/23 19:44 BP 109/71 09/06/23 19:44 Pulse Ox 96 09/06/23 19:44 O2 Del Method Room Air 09/06/23 19:44 BMI result Body Mass Index 31.0 Appearance: Alert.?Oriented to person, place and time. No acute distress.?Normal affect. Eyes: Pupils equal, round and reactive to light.? ENT: Pharynx normal.?? Neck: Normal inspection.? Neck supple.?? CVS: Heart sounds normal. Normal heart rate and rhythm.? Pulses normal.?? Respiratory: No respiratory distress.? Lung sounds clear to auscultation bilaterally?? Abdomen: Soft and non-tender. Normoactive bowel sounds. Skin: Skin warm and dry.? Normal skin color.? Extremities: 1+ bilateral lower extremity edema.? Left calf tenderness upon palpation. 2+ DP/PT pulse bilaterally. Neuro: Moves all extremities spontaneously. Sensation intact bilaterally. CN II- XII intact. No focal neuro deficits. Ambulates with normal steady gait. Course Course Course Narrative: RME-16:32PM -63-year-old female who is Comoran-speaking with a past medical history of vaginal cancer presenting to the ED after Dr. Sonia Duncan discovered a DVT to her left lower extremity. Patient reports that she has been having pain and she can not recall call any injuries. She denies any other symptoms related to this. I am able to see the patient's ultrasound results US/US venous duplex LE LT IMPRESSION: Occlusive thrombus proximal femoral vein through the popliteal vein. A preliminary report was called to the office at 4:00 PM on 09/06/2023. Plan: At this time patient will be sent back to the waiting room labs including PT INR ordered. Medical Decision Making Medical Decision Making MDM Narrative: Reviewed outpatient ultrasound which indicates left occlusive thrombus in the proximal femoral vein through the popliteal vein. Extremities neurovascularly intact at the time of my examination, 2+ DP/PT pulse present bilaterally. She is at high-risk for progression/occurrence due to location, reviewed serum labs which indicates thrombocytopenia with count 102,000 , normal coag studies, no MOOSE or abnormal liver function testing. Reviewed this case with ED attending, Dr. Aparicio who agrees with the following plan of care; At this time she would be a candidate for starting full-dose anticoagulation with Eliquis 10 mg twice daily for 7 days followed by 5 mg twice daily, unprovoked etiology therefore will refer to hematology and have close follow-up with primary care provider. Discussed strict bleeding precautions, and reasons to be evaluated in the emergency department. On examination she has not in any respiratory distress, she is speaking clear full sentences, has no tachypnea or hypoxia, lower suspicion at this time for pulmonary embolism. Occlusive thrombus proximal femoral vein through the popliteal vein. Differential Diagnosis Differential Diagnoses: The differential diagnosis associated with the presentation includes (As noted above) Admission/Observation Consideration of admission/observation: Escalation of care including admission/observation considered (As noted above) Consult Healthcare Provider Management of the patient was discussed with: Electric Motor Winders Assembler (ED attending) Lab Data MDM Lab Attestation statement: I reviewed the patient's lab results. (As noted above) 09/06/23 18:08 09/06/23 19:25 Labs: Lab Results 09/06/23 09/06/23 Range/Units 18:08 19:25 WBC 5.3 (4.8-10.8) X10*3/uL RBC 4.34 (4.20-5.50) X10*6/uL Hgb 15.1 (12.0-16.0) g/dl Hct 44.2 (37.0-47.0) % MCV 101.8 H (80.0-98.0) fL MCH 34.8 H (27.0-33.0) pg MCHC 34.2 (31.0-35.0) g/dl RDW 11.6 (11.0-16.0) % Plt Count 102 L (160-400) X10*3/uL MPV 11.1 (9.4-12.3) fL Immature Gran % (Auto) 0.2 (0.0-0.4) % Neut % (Auto) 54.7 (45-73) % Lymph % (Auto) 33.5 (20-40) % [place] % (Auto) 10.2 (2-11) % Eos % (Auto) 0.8 (0-4) % Baso % (Auto) 0.6 (0-2) % Lymph # (Auto) 1.8 (1.2-4.9) X10*3/uL [place] # (Auto) 0.5 (0.1-1.2) X10*3/uL Eos # (Auto) 0.0 (0.0-0.4) X10*3/uL Baso # (Auto) 0.0 (0.0-0.2) X10*3/uL Abs Immat Gran (auto) 0.01 (0.00-0.03) X10*3/uL Absolute Neuts (auto) 2.9 (2.0-8.3) x10*3/uL Absolute Nucleated RBC 0.000 (0.0-0.012) X10*3/uL Nucleated RBC % (auto) 0.0 (0.0-0.2) /100WBC PT 11.7 (11.1-13.3) SEC INR 1.0 (0.9-1.1) Sodium 140 (135-145) mmol/L Potassium 4.0 (3.3-5.1) mmol/L Chloride 106 (96-108) mmol/L Carbon Dioxide 25 (22-29) mmol/L Anion Gap 13 (12-20) BUN 9 (9-16) mg/dL Creatinine 0.76 (0.5-1.4) mg/dL Estim Creat Clear Calc 73.6 Estimated GFR > 60 Random Glucose 109 (60-115) mg/dL Calcium 9.6 (8.4-10.2) mg/dL Magnesium 2.2 (1.6-2.6) mg/dL Total Bilirubin 0.9 (0.0-1.0) mg/dL Direct Bilirubin 0.3 (0.0-0.5) mg/dL AST 27 (5-31) U/L ALT 19 (0-31) U/L Alkaline Phosphatase 96 (39-117) U/L Total Protein 7.5 (6.5-8.0) g/dL Albumin 4.0 (3.5-5.0) g/dL External Record Review External record reviewed: Prior outpatient radiology (As noted above) Chronic Conditions Patient?s care impacted by: Other (Thrombocytopenia) Critical Care Time Critical Care Time Critical Care Time: Yes Total Critical Care Time: 40 Attestation: I personally attest to this critical care time spent taking care of the patient exclusive of all other billable procedures was approximately 40 minutes including initial evaluation of patient, ordering tests, x-ray interpretation, EKG interpretation, medical consultation, documentation, re-evaluation. Discharge Plan Discharge Clinical Impression: DVT (deep venous thrombosis) Qualifiers: DVT location: lower extremity Affected thrombotic vein of extremity: femoral C hronicity: acute Laterality: left Qualified Code(s): I82.412 - Acute embolism and thrombosis of left femoral vein Patient Disposition: Home, Self-Care Instructions: Deep Vein Thrombosis (ED), Blood Thinners (ED), Deep Vein Thrombosis Prevention (ED) Additional Instructions: As discussed, you have a blood clot in your left leg. For this you have been given a new medication, Eliquis/apixaban. This is a blood thinning medication. It is very important that you take this medication as prescribed in the starter pack. You will take 10 mg (2 tablets) twice daily once in the morning and once in the evening for 7 days. After that you will take 5 mg (1 tablet) twice daily once in the morning and once in the evening Is very important that while taking this medication you check for any signs of bleeding. If you develop any bleeding from gums, blood in urine, bloody or black stools, bloody vomit, then he should seek immediate attention. Additionally, if you have any head injury or fall no matter how minor it is extremely important that you present to the emergency department for immediate evaluation as it can increase your chances of bleeding in the brain. It is unclear why you developed this blood clot, therefore you are being referred to a blood specialist, a safety assistant. Dr. Gloria. Please call their office 1st thing tomorrow morning to arrange for a follow-up. Additionally please contact your primary care provider to arrange for a follow- up visit. - [place] comentamos, tiene un co?gulo de gaby en la pierna izquierda. Para ello le sosa recetado un nuevo medicamento, Eliquis/apixaban. Claudette es un medicamento anticoagulante. - Es muy importante que tome claudette medicamento seg?n lo prescrito en el paquete inicial. Nitin? 10 mg (2 comprimidos) dos veces al d?a, shakira vez por la ma?bell y otra por la noche melvin 7 d?as. Despu?s de eso, nitin? 5 mg (1 comprimido) dos veces al d?a, shakira vez por la ma?bell y otra por la noche. - Es muy importante que mientras yoli claudette medicamento controle si hay alg?n signo de sangrado. Si presenta sangrado en las enc?as, gaby en la orina, heces con gaby o negras, v?joelle con gaby, debe buscar atenci?n inmediata. - Adem?s, si tiene alguna lesi?n en la venus o shakira ca?da, por sandra que sea, es extremadamente importante que acuda al departamento de emergencias para shakira evaluaci?n inmediata, ya que puede aumentar jill posibilidades de sufrir shakira hemorragia cerebral. - No est? tyron por qu? desarroll? claudette co?gulo de gaby, por lo que lo derivar?n a un especialista en gaby, un hemat?logo. Doctor Juani. Llame a ardon oficina ma?bell por la ma?bell a primera hora para programar un seguimiento. - Adem?s, comun?quese con ardon proveedor de atenci?n primaria para programar shakira visita de seguimiento. Prescriptions: New Eliquis DVT-PE Treat 30D Start 5 mg (74 tabs) tablets,dose pack 5 mg PO BID Qty: 74 0RF No Action (DME) toilet seat elevator See Rx Instructions .Route .MEDSUPPLY Qty: 1 0RF Rx Instructions: As directed (DME) Grab bar Misc See Rx Instructions .Route Qty: 2 0RF Rx Instructions: As directed sucralfate [Carafate] 100 mg/mL suspension 10 ml PO BID Qty: 420 0RF (DME) Grab bar Misc See Rx Instructions .Route Qty: 3 0RF Rx Instructions: As directed (DME) Shower Chair Misc See Rx Instructions .Route Qty: 1 0RF Rx Instructions: As directed (DME) toilet seat elevator See Rx Instructions .Route .MEDSUPPLY Qty: 1 0RF Rx Instructions: As directed loratadine [Allergy Relief (loratadine)] 10 mg tablet 10 mg PO DAILY PRN (Reason: allergy symptoms) 30 Days Qty: 30 0RF furosemide 20 mg tablet 10 mg PO QAM 90 Days Qty: 45 3RF omeprazole 40 mg capsule,delayed release(DR/EC) 40 mg PO DAILY PRN (Reason: gerd) 90 Days Qty: 90 1RF Rx Instructions: open capsule and mix with apple sauce oxycodone-acetaminophen 10-325 mg tablet 1 tab PO TID PRN (Reason: pain) 30 Days Qty: 90 0RF diclofenac sodium [Arthritis Pain (diclofenac)] 1 % gel 2 g topical QID 30 Days Qty: 100 0RF Rx Instructions: apply to single elbow, wrist or hand; for hand includes palm/fingers/back of hand montelukast 10 mg tablet 10 mg PO BEDTIME Qty: 10 0RF nystatin 100,000 unit/gram cream 1 appl topical BID PRN (Reason: rash) 14 Days Qty: 15 0RF Benadryl Extra Strength 2-0.1 % cream 1 appl topical BID PRN (Reason: itching) 30 Days Qty: 28.3 0RF triamcinolone acetonide 0.5 % cream 1 appl topical BID PRN (Reason: puritis) Qty: 15 0RF atorvastatin 20 mg tablet 20 mg PO DAILY 90 Days Qty: 90 1RF cholecalciferol (vitamin D3) 125 mcg (5,000 unit) capsule 125 mcg PO DAILY 90 Days Qty: 90 1RF sertraline 25 mg tablet 25 mg PO DAILY 90 Days Qty: 90 2RF Referrals: Lisa Gloria MD [Physician] - Bell Quintanilla MD [Primary Care Provider] -
[2023-09-06 18:11] LABS: MANUAL DIFF FLAG NO
[2023-09-06 18:12] LABS: Basophils Percent Auto 0.6 % (0-2); Eosinophils Percent Auto 0.8 % (0-4); Hematocrit 44.2 % (37.0-47.0); Hemoglobin 15.1 g/dl (12.0-16.0); Imm Gran Abs Auto 0.01 X10*3/uL (0.00-0.03); Imm Gran Pct Auto 0.2 % (0.0-0.4); Lymphocytes Absolute Auto 1.8 X10*3/uL (1.2-4.9); Lymphocytes Percent Auto 33.5 % (20-40); Mean Corpuscular HGB Conc 34.2 g/dl (31.0-35.0); Mean Corpuscular Hemoglobin 34.8 pg (27.0-33.0); Mean Corpuscular Volume 101.8 fL (80.0-98.0); Mean Platelet Volume 11.1 fL (9.4-12.3); Monocytes Absolute Auto 0.5 X10*3/uL (0.1-1.2); Monocytes Percent Auto 10.2 % (2-11); Neutrophils Absolute Auto 2.9 x10*3/uL (2.0-8.3); Neutrophils Percent Auto 54.7 % (45-73); Platelet Count 102 X10*3/uL (160-400); Red Blood Count 4.34 X10*6/uL (4.20-5.50); Red Cell Distribution Width 11.6 % (11.0-16.0); White Blood Count 5.3 X10*3/uL (4.8-10.8)
[2023-09-06 18:21] LABS: Prothrombin Time 11.7 SEC (11.1-13.3)
--- NOTE | 2023-09-06 19:25 | MHC.EDTECH ---
Patient brought into triage,lab drawn and sent to lab.
[2023-09-06 19:44] VITALS: BP 109/71; PULSE 86; RESP 16; TEMP 36.2; O2SAT 96
[2023-09-06 21:07] LABS: Alanine Aminotransferase 19 U/L (0-31); Alkaline Phosphatase 96 U/L (39-117); Anion Gap 13 (12-20); Aspartate Amino Transferase 27 U/L (5-31); Bilirubin Total 0.9 mg/dL (0.0-1.0); Blood Urea Nitrogen 9 mg/dL (9-16); Calcium 9.6 mg/dL (8.4-10.2); Carbon Dioxide 25 mmol/L (22-29); Chloride 106 mmol/L (96-108); Creatinine Clr Calc Pharmacy 73.6; Estimated Glomerular Filt Rate > 60; Glucose Random 109 mg/dL (60-115); Magnesium 2.2 mg/dL (1.6-2.6); Sodium 140 mmol/L (135-145); Total Protein 7.5 g/dL (6.5-8.0)
[2023-09-06 21:28] LABS: Bilirubin Direct 0.3 mg/dL (0.0-0.5)
[2023-09-06 21:47] VITALS: BP 123/86; PULSE 75; RESP 16; TEMP 36.9; O2SAT 96
[2023-09-06] MEDS: Apixaban 5 MG TABLET 10 MG PO (21:50)
== END 2023-09-06 22:23 | disposition home or self-care (01) ==
PROVIDERS: Physician Assistant Medical; Emergency Provider Emergency Medicine; PCP Internal Medicine
DX: I82.412 Acute embolism and thrombosis of left femoral vein (principal)
CPT/HCPCS: 36415; 80053; 80307; 80365; 82248; 83735; 85025; 85610; 93971; 99284; G0480

== ENCOUNTER 2023-09-15 17:30 | Outpatient (AMB) | payer MEDICARE, MEDICAID, SELFPAY ==
[2023-09-15 17:36] VITALS: BP 112/70; BMI 31.0
--- NOTE | 2023-09-15 17:36 | MHC.PC.OV ---
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: No Accompanied by: Self / Same As Patient Allergies No Known Allergies Allergy (Verified 09/15/23 17:43) Medication List - Last Reconciled 09/15/23 by Bell Peters MD apixaban (Eliquis DVT-PE Treat 30D Start) 5 mg PO BID atorvastatin 20 mg PO DAILY 90 days cholecalciferol (vitamin D3) 125 mcg PO DAILY 90 days diclofenac sodium 1% (Arthritis Pain (diclofenac)) 2 grams topical QID 30 days diphenhydramine-zinc acetate 2-0.1 % (Benadryl Extra Strength) 1 appl topical BID PRN 30 days furosemide 10 mg (1/2 x 20 mg) PO QAM 90 days Grab bar As directed Grab bar As directed loratadine (Allergy Relief (loratadine)) 10 mg PO DAILY PRN 30 days montelukast 10 mg PO BEDTIME nystatin 1 appl topical BID PRN 14 days omeprazole 40 mg PO DAILY PRN 90 days oxycodone-acetaminophen 10-325 mg 1 tab PO TID PRN 30 days sertraline 25 mg PO DAILY 90 days Shower Chair As directed sucralfate (Carafate) 10 mL PO BID [toilet seat elevator As directed] [toilet seat elevator As directed] triamcinolone acetonide 0.5% 1 appl topical BID PRN Tobacco use date assessed: 09/15/23 Fall risk assessment: No Falls in past year Last assessed Fall Risk: 09/15/23 Dental Screening Dental Screen Date: 09/15/23 Did you have a dental visit in the last 12 months?: No Did you have a dental problem in the last 6 months where you did not have access to dental care?: No Was dental information given to patient?: Patient has dentist HPI HPI Comments History of Present Illness Details This is a 63 year old female with mild recurrent major depression, chronic GERD, pure hypercholesterolemia and left leg DVT that comes for follow up on her hospital discharge follow up with discharge date 09/06/23 due to left leg DVT. Depression stable with SSRIs. GERD stable with PPIs. On statin for pure hypercholestrolemia and started Eliquis for left leg DVT at ER when discharge. She said that this is her first episode and appears unprovoked. No chest pain or shortness of breath. No active bleeding. [facility], LAT[facility] Medical History History of tachycardia Pernicious anemia Mild recurrent major depression Pure hypercholesterolemia Chronic GERD Shoulder pain, right Abdominal pain IGNACIO I (cervical intraepithelial neoplasia I) Leg edema Neck pain Recent surgical procedure on lower extremity Edema Surgical History History of esophagogastroduodenoscopy (EGD) Hx of gastric bypass History of colonoscopy H/O abdominoplasty History of tubal ligation H/O thyroidectomy Family History Father HTN (hypertension) Diabetes Mother HTN (hypertension) Diabetes Social History Housing: House Are you a primary medication care manager to a significant other at home: No Do you 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) Alcohol intake: current Alcohol intake frequency: a few times a month Comment: medicated with ibuprofen previously Patient Tobacco Use Status: Former Tobacco user Quit Date: 10 yrs ago Tobacco use type: Cigarette e-Cigarette/Vaping Use: Never Used Second Hand Smoke Exposure: Yes service: No Current occupational status: disabled Sexual orientation: Straight/Heterosexual Gender identity: Female Cognitive needs: No Hearing needs: No Vision needs: Yes Questionnaire Thrive Questionnaire Date Thrive assessed: 09/06/23 [place]-7 AMB Questionnaire [place]-7 Date [place] - 7 assessed: 09/06/23 Source: Developed by Drs. Ty Gonzáles, Inocencia Arambula, Stephane Peter and colleagues, with an educational thor from [employer]. Review of Systems Const All systems reviewed & are unremarkable except as noted in HPI and below Eyes Reports no additional complaints, Denies change in vision and Denies other visual disturbances Card Denies chest pain at rest, Denies chest pain with activity, Denies edema, Denies irregular heart rhythm, Denies claudication, Denies dyspnea, Denies dyspnea on exertion, Denies orthopnea, Denies paroxysmal nocturnal dyspnea and Denies slow heart rate Resp Denies cough, Denies dyspnea and Denies dyspnea on exertion GI Denies abdominal pain, Denies change in bowel habits, Denies excessive flatus, Denies nausea and Denies vomiting Denies urinary incontinence, Denies urinary hesitancy and Denies urinary urgency Musc Denies abnormal gait, Denies atrophy, Denies deformity and Denies limited range of motion Skin/Breast Denies bleeding lesions, Denies changing lesions and Denies rash Neuro Denies abnormal gait and Denies lack of coordination Physical exam (Primary Care) Vital Signs: Last Vital Signs BP 112/70 09/15/23 17:36 BMI result Body Mass Index 31.0 Tobacco/Smoking Status: Tobacco use Status Tobacco use date assessed 09/15/23 09/15/23 17:40 Patient Tobacco Use Status Former Tobacco user 09/15/23 17:40 Tobacco use type Cigarette 09/15/23 17:40 e-Cigarette/Vaping Use Never Used 09/15/23 17:40 Thrive Assessment: Date of Thrive Assessment Date Thrive assessed 09/06/23 09/15/23 17:40 Eyes General: appearance normal, both eyes and all related structures Eyelids: Yes eyelids normal Conjunctivae: conjunctivae normal Neck Neck: Yes normal visual inspection and Yes supple Resp Effort & Inspection: normal respiratory effort Auscultation: clear to auscultation bilaterally Cardio Jugular venous distension: no JVD Rate: regular rate Rhythm: regular rhythm Heart sounds: S1 normal heart sound present and S2 normal heart sound present Extrem General: Yes full ROM Assessment and Plan Assessment & Plan (1) Hospital discharge follow-up: Code(s): Z09 - Encounter for follow-up examination after completed treatment for conditions other than malignant neoplasm Plan: Discharge date 09/16/23 due to left leg DVT. On Eliquis. (2) Mild recurrent major depression: Code(s): F33.0 - Major depressive disorder, recurrent, mild Plan: Continue SSRIs. (3) Chronic GERD: Comment: Continue ppi, carafate, avoid culprits- Mild epigastric tenderness Code(s): K21.9 - Gastro-esophageal reflux disease without esophagitis Plan: Continue PPIs. (4) Pure hypercholesterolemia: Code(s): E78.00 - Pure hypercholesterolemia, unspecified Plan: Continue statins. (5) Left leg DVT: Code(s): I82.402 - Acute embolism and thrombosis of unspecified deep veins of left lower extremity Plan: Continue Eliquis. Follow up with hematology/oncology. Medications: Refilled oxycodone-acetaminophen 10-325 mg 1 tab PO TID PRN 90 tabs 0RF pain 30 days Coding Level of Care Code TCM Mod MDM <= 14 Days Diagnoses Hospital discharge follow-up Z09 Mild recurrent major depression F33.0 Chronic GERD K21.9 Pure hypercholesterolemia E78.00 Left leg DVT I82.402 Time Spent (min) 23
== END 2023-09-15 17:49 | disposition home or self-care (01) ==
PROVIDERS: PCP Internal Medicine; Visit Provider Internal Medicine
DX: I82.402 Acute embolism and thrombosis of unspecified deep veins of left lower extremity (principal); F33.0 Major depressive disorder, recurrent, mild; K21.9 Gastro-esophageal reflux disease without esophagitis; E78.00 Pure hypercholesterolemia, unspecified
CPT/HCPCS: 99213

== ENCOUNTER → 2023-09-20 13:20 | Outpatient (BNV) | payer MEDICARE, MEDICAID, SELFPAY | PROVIDERS: PCP Internal Medicine; Visit Provider Internal Medicine | DX: I82.402 Acute embolism and thrombosis of unspecified deep veins of left lower extremity (principal) | CPT/HCPCS: 99204; 99213 ==

== ENCOUNTER 2023-09-22 11:33 | Outpatient (REF) | payer MEDICARE, MEDICAID, SELFPAY ==
--- NOTE | ~2023-09-22 | MM_ITS ---
EXAMINATION: BONE DENSITOMETRY CLINICAL INDICATION: Unspecified menopausal and perimenopausal disorder. COMPARISON: This is the patient's baseline examination. TECHNIQUE: Using a [employer] DXA System (software version: 13.1) manufactured by [employer], dual-energy x-ray absorptiometry was performed of the lumbar spine and left hip. The images are of good technical quality. Summary results are attached. FINDINGS: AP SPINE L1-L4: BMD 1.423 g/cm2, Z-score 3.1, T-score 2.0, normal. LEFT FEMUR, NECK: BMD 1.287 g/cm2, Z-score 3.0, T-score 1.8, normal. LEFT FEMUR, TOTAL: BMD 1.323 g/cm2, Z-score 3.4, T-score 2.5, normal. IDENTIFIED RISK FACTORS: History of adult fracture. Low calcium intake. Secondary osteoporosis (part of stomach removed). Menopause. HISTORY OF FRACTURE: Spine. Other. MEDICATIONS: Vitamin D. MM/XR DEXA axial skeleton IMPRESSION: 1. DIAGNOSIS: Normal bone density based on the lowest T-score value of 1.8 in the femoral neck applying World Health Organization criteria. 2. 10-YEAR FRACTURE RISK PREDICTION, FRAX: According to the guidelines, FRAX calculation should only be performed on patients in the osteopenia bone density category.?Therefore, FRAX was not performed on this patient.? 3. Treatment Recommendations: NOF guidelines recommend consideration for treatment in postmenopausal women and men age 50 and older presenting with the following: -A hip or vertebral (clinical or morphometric) fracture. -T-score less than or equal to -2.5 at the femoral neck or spine after appropriate evaluation to exclude secondary causes. -Low bone mass at the hip or spine and a 10-year fracture probability by FRAX of greater than or equal to 3% for hip fracture or greater than or equal to 20% for major osteoporotic fracture based on the [place] adapted WHO algorithm. 4. Other Recommendations: All treatment decisions require clinical judgment and consideration of individual patient factors, including patient preferences, comorbidities, previous drug use, risk factors not captured in the FRAX model (e.g. frailty, falls, vitamin D deficiency, increased bone turnover, interval significant decline in bone density) and possible under or overestimation of fracture risk by FRAX. FUTURE SCAN RECOMMENDATION: People with diagnosed cases of osteoporosis or at high risk for fracture should have regular bone mineral density tests. For patients eligible for Medicare, routine testing is allowed once every 2 years. The testing frequency can be increased to one year for patients who have rapidly progressing disease, those who are receiving or discontinuing medical therapy to restore bone mass, or have additional risk factors.
== END 2023-09-22 11:34 | disposition home or self-care (01) ==
LOC: HO.MAMMO 11:33
PROVIDERS: PCP Internal Medicine; Visit Provider Internal Medicine
DX: Z13.820 Encounter for screening for osteoporosis (principal); Z78.0 Asymptomatic menopausal state
CPT/HCPCS: 77080

== ENCOUNTER 2023-10-14 19:59 | Emergency (ER) | payer MEDICARE, MEDICAID, SELFPAY ==
--- NOTE | ~2023-10-14 | US_ITS ---
EXAMINATION: US VENOUS ULTRASOUND WITH DOPPLER LOWER EXTREMITY, LEFT CLINICAL INFORMATION: Known DVT with worsening pain and swelling COMPARISON: Left leg DVT study 09/06/2023 TECHNIQUE: Ultrasound of the deep veins is performed from the hip to the calf with compression sonography and color and pulse Doppler assessment. Spectral analysis with color-flow imaging is performed. FINDINGS: At the time of the prior study, there was occlusive thrombus present extending from the popliteal vein through the proximal femoral vein. On today's exam, thrombus persists but appears significantly less. The mid femoral vein is now patent and the thrombus in the popliteal vein and proximal femoral vein has significantly decreased in volume and is no longer occlusive with flow through these regions. No new thrombus is seen. US/US venous duplex LE LT IMPRESSION: Improving DVT with some residual thrombus present but significantly decreased in volume when compared to the prior study and now non-occlusive.
[2023-10-14 20:01] VITALS: BP 109/77; PULSE 100; RESP 16; TEMP 36.5; O2SAT 98; BMI 30.6
--- NOTE | 2023-10-14 20:26 | ED.EXTPRO ---
HPI - Extremity Problem General Chief complaint: Extremity Problem Stated complaint: ? 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 Patient was seen here on 09/06/2023 for left leg swelling. She is diagnosed with a left lower extremity DVT and discharged on Eliquis She reports that she had been compliant with the medication up until last Wednesday. Due to leg pain she wants to see if the medication was causing her symptoms, so she stopped the Eliquis and restarted yesterday She is concerned that she has worsening DVT Denies any chest pain or shortness of breath Related Data Previous Rx's ?Medication ?Instructions ?Recorded diclofenac sodium 1 % topical gel 2 g topical QID 30 days #100 grams 07/10/20 (Arthritis Pain (diclofenac)) montelukast 10 mg tablet 10 mg PO BEDTIME #10 tabs 09/08/21 Grab bar #2 ea 04/09/22 toilet seat elevator #1 ea 04/09/22 sucralfate 100 mg/mL oral 10 ml PO BID #420 mL 04/12/22 suspension (Carafate) nystatin 100,000 unit/gram topical 1 appl topical BID PRN rash 14 05/01/22 cream days #15 grams Grab bar #3 ea 07/09/22 Shower Chair #1 ea 07/09/22 diphenhydramine-zinc acetate 2 1 appl topical BID PRN itching 30 09/09/22 %-0.1 % topical cream (Benadryl days #28.3 grams Extra Strength) toilet seat elevator #1 ea 09/16/22 loratadine 10 mg tablet (Allergy 10 mg PO DAILY PRN allergy 11/13/22 Relief (loratadine)) symptoms 30 days #30 tabs triamcinolone acetonide 0.5 % 1 appl topical BID PRN puritis #15 01/28/23 topical cream grams furosemide 20 mg tablet 10 mg (1/2 x 20 mg) PO QAM 90 days 08/20/23 #45 tabs omeprazole 40 mg capsule,delayed 40 mg PO DAILY PRN gerd 90 days 08/20/23 release #90 caps apixaban 5 mg (74 tabs) tablets in 5 mg PO BID #74 ea 09/06/23 a dose pack (Eliquis DVT-PE Treat 30D Start) atorvastatin 20 mg tablet 20 mg PO DAILY 90 days #90 tabs 09/06/23 cholecalciferol (vitamin D3) 125 125 mcg PO DAILY 90 days #90 caps 09/06/23 mcg (5,000 unit) capsule sertraline 25 mg tablet 25 mg PO DAILY 90 days #90 tabs 09/06/23 oxycodone-acetaminophen 10 mg-325 1 tab PO TID PRN pain 30 days #90 09/15/23 mg tablet tabs apixaban 5 mg tablet 5 mg PO BID #60 tabs 09/20/23 Allergies Allergy/AdvReac Type Severity Reaction Status Date / Time No Known Allergies Allergy Verified 10/14/23 20:01 Review of Systems Constitutional: Constitutional: Denies body ache(s), Denies chills and Denies fever(s) Cardiovascular: Cardiovascular: Denies chest pain and Denies dyspnea Respiratory: Respiratory: Denies cough and Denies dyspnea Musculoskeletal: Musculoskeletal: Reports radiating pain into limb PMFSH Past Medical History Medical History History of tachycardia Pernicious anemia Mild recurrent major depression Pure hypercholesterolemia Chronic GERD Shoulder pain, right Abdominal pain IGNACIO I (cervical intraepithelial neoplasia I) Leg edema Neck pain Recent surgical procedure on lower extremity Edema Surgical History History of esophagogastroduodenoscopy (EGD) Hx of gastric bypass History of colonoscopy H/O abdominoplasty History of tubal ligation H/O thyroidectomy Family History Family History (Updated 09/20/23 @ 17:10 by Lisa Gloria MD) Father Diabetes HTN (hypertension) Mother Diabetes HTN (hypertension) Sister Vaginal cancer Lung cancer Brother Leukemia Social History Social History (Updated 09/20/23 @ 13:15 by Leeann Parsons) Housing: House Are you a primary healthcare network pricing consultant to a significant other at home: No Do you presently have visiting nurse or other home services: Yes ([employer]) Alcohol intake: current Alcohol intake frequency: a few times a month Comment: medicated with ibuprofen previously Patient Tobacco Use Status: Former Tobacco user Quit Date: 10 yrs ago Tobacco use type: Cigarette Smoked in Last 30 Days: No e-Cigarette/Vaping Use: Never Used Second Hand Smoke Exposure: Yes Advance Directives: No Advance Directives Information Provided: No service: No Current occupational status: disabled Sexual orientation: Straight/Heterosexual Gender identity: Female Cognitive needs: No Hearing needs: No Vision needs: Yes Physical Exam Vital Signs: Vital Signs: Last Vital Signs Temp 97.8 F 10/14/23 21:45 Pulse 89 10/14/23 21:45 Resp 18 10/14/23 21:45 BP 134/84 10/14/23 21:45 Pulse Ox 98 10/14/23 21:45 O2 Del Method Room Air 10/14/23 21:45 BMI result Body Mass Index 30.6 Const: General: healthy appearing, comfortable, no acute distress, alert and awake Nutritional Appearance: well nourished Orientation/consciousness: patient oriented x3 HEENT: Head: Yes normocephalic and Yes atraumatic Eyes: Eyelids: Yes eyelids normal Conjunctivae: conjunctivae normal Sclerae: sclerae normal Corneas: corneas normal Pupils: Equal, round and reactive pupils present EOM: EOMs intact bilaterally Neck: Neck: Yes full ROM Resp: Effort & Inspection: normal respiratory effort, able to speak in complete sentences and not labored Skin: General skin exam: elasticity normal Neuro: General: patient oriented x3 Cranial nerves: Yes Equal, round and reactive pupils present and Yes Bilaterally intact EOM present Cognition (Neuro): normal cognition Extrem: Other: No lower extremity edema bilaterally. No erythema. No overlying skin changes. No palpable cords. The patient is tender to palpation left calf and popliteal region without deformity noted Course Course Course Narrative: This is a Rapid Medical Examination (RME) in triage, full HPI, ROS, assessment and plan per primary provider in the Main ED. 63 yo female with known DVT on Eliquis dx 1 month ago presenting with worsening LLE pain and swelling. Compliant w/ Daniellequis. Dr. Cox recommending repeat U/S. Medical Decision Making Medical Decision Making MDM Narrative: 63-year-old female presents for evaluation of worsening DVT. Plan for DVT ultrasound to evaluate for worsening cooperative. The patient was noncompliant with her Eliquis for the last 5 days. Her vital signs are currently within normal limits. There is no evidence of infectious process or traumatic injury Differential Diagnosis Differential Diagnoses: The differential diagnosis associated with the presentation includes Left leg DVT Muscle strain Thrombophlebitis Worsening clot burden Muscle strain Popliteal cyst Radiology Impression Discussion of test interpretation with radiology: I have reviewed the radiologist's reading. Radiologist Impression: Chronic DVT appreciated without any evidence of worsening clot burden Discharge Plan Discharge Clinical Impression: Chronic deep vein thrombosis (DVT) of left lower extremity Patient Disposition: Home, Self-Care Instructions: Deep Vein Thrombosis (ED) Additional Instructions: Your ultrasound does not show any new or worsening blood clot. Continue taking your Eliquis as prescribed Follow-up with your primary doctor Prescriptions: No Action (DME) toilet seat elevator See Rx Instructions .Route .MEDSUPPLY Qty: 1 0RF Rx Instructions: As directed (DME) Grab bar Misc See Rx Instructions .Route Qty: 2 0RF Rx Instructions: As directed sucralfate [Carafate] 100 mg/mL suspension 10 ml PO BID Qty: 420 0RF (DME) Grab bar Misc See Rx Instructions .Route Qty: 3 0RF Rx Instructions: As directed (DME) Shower Chair Misc See Rx Instructions .Route Qty: 1 0RF Rx Instructions: As directed (DME) toilet seat elevator See Rx Instructions .Route .MEDSUPPLY Qty: 1 0RF Rx Instructions: As directed loratadine [Allergy Relief (loratadine)] 10 mg tablet 10 mg PO DAILY PRN (Reason: allergy symptoms) 30 Days Qty: 30 0RF furosemide 20 mg tablet 10 mg PO QAM 90 Days Qty: 45 3RF omeprazole 40 mg capsule,delayed release(DR/EC) 40 mg PO DAILY PRN (Reason: gerd) 90 Days Qty: 90 1RF Rx Instructions: open capsule and mix with apple sauce apixaban 5 mg Tablet 5 mg PO BID Qty: 60 3RF Eliquis DVT-PE Treat 30D Start 5 mg (74 tabs) tablets,dose pack 5 mg PO BID Qty: 74 0RF diclofenac sodium [Arthritis Pain (diclofenac)] 1 % gel 2 g topical QID 30 Days Qty: 100 0RF Rx Instructions: apply to single elbow, wrist or hand; for hand includes palm/fingers/back of hand montelukast 10 mg tablet 10 mg PO BEDTIME Qty: 10 0RF nystatin 100,000 unit/gram cream 1 appl topical BID PRN (Reason: rash) 14 Days Qty: 15 0RF Benadryl Extra Strength 2-0.1 % cream 1 appl topical BID PRN (Reason: itching) 30 Days Qty: 28.3 0RF triamcinolone acetonide 0.5 % cream 1 appl topical BID PRN (Reason: puritis) Qty: 15 0RF oxycodone-acetaminophen 10-325 mg tablet 1 tab PO TID PRN (Reason: pain) 30 Days Qty: 90 0RF atorvastatin 20 mg tablet 20 mg PO DAILY 90 Days Qty: 90 1RF cholecalciferol (vitamin D3) 125 mcg (5,000 unit) capsule 125 mcg PO DAILY 90 Days Qty: 90 1RF sertraline 25 mg tablet 25 mg PO DAILY 90 Days Qty: 90 2RF Print Language: Georgian
[2023-10-14 21:45] VITALS: BP 134/84; PULSE 89; RESP 18; TEMP 36.6; O2SAT 98
[2023-10-14 23:02] VITALS: BP 134/84; PULSE 89; RESP 17; TEMP 36.6; O2SAT 98
== END 2023-10-14 23:12 | disposition home or self-care (01) ==
PROVIDERS: Emergency Provider Internal Medicine; PCP Internal Medicine
DX: I82.5Z2 Chronic embolism and thrombosis of unspecified deep veins of left distal lower extremity (principal); R60.0 Localized edema; Z87.891 Personal history of nicotine dependence; Z79.899 Other long term (current) drug therapy
CPT/HCPCS: 93971; 99284

== ENCOUNTER 2023-10-28 14:17 | Outpatient (AMB) | payer MEDICARE, MEDICAID, SELFPAY ==
--- NOTE | 2023-10-28 14:19 | MHC.PC.OV ---
Vital Signs 10/28/23 14:20 Height 5 ft 3 in Weight 176 lb BMI 31.2 BP 110/68 Blood Pressure Location Lt brachial Position Sitting Intake Visit Reasons: ED [facility] due to pain in her left leg Incident Engineer Required: No Accompanied by: Family/Other Allergies No Known Allergies Allergy (Verified 10/28/23 14:41) Medication List - Last Reconciled 10/28/23 by Bell Peters MD apixaban 5 mg PO BID atorvastatin 20 mg PO DAILY 90 days cholecalciferol (vitamin D3) 125 mcg PO DAILY 90 days diclofenac sodium 1% (Arthritis Pain (diclofenac)) 2 grams topical QID 30 days diphenhydramine-zinc acetate 2-0.1 % (Benadryl Extra Strength) 1 appl topical BID PRN 30 days furosemide 10 mg (1/2 x 20 mg) PO QAM 90 days Grab bar As directed Grab bar As directed loratadine (Allergy Relief (loratadine)) 10 mg PO DAILY PRN 30 days montelukast 10 mg PO BEDTIME nystatin 1 appl topical BID PRN 14 days omeprazole 40 mg PO DAILY PRN 90 days oxycodone-acetaminophen 10-325 mg 1 tab PO TID PRN 30 days sertraline 25 mg PO DAILY 90 days Shower Chair As directed sucralfate (Carafate) 10 mL PO BID [toilet seat elevator As directed] [toilet seat elevator As directed] triamcinolone acetonide 0.5% 1 appl topical BID PRN Tobacco use date assessed: 09/15/23 Fall risk assessment: No Falls in past year Last assessed Fall Risk: 10/28/23 Dental Screening Dental Screen Date: 09/15/23 HPI HPI Comments History of Present Illness Details This is a 63-year-old female with left leg DVT, mild major depression, GERD and dyslipidemia that comes today accompanied by daughter in-law for follow-up on her conditions. Left leg pain has markedly improved and repeated ultrasound was also improved regarding her DVT which is follow by Hematology-Oncology. Currently on Eliquis. Depression stable with sertraline. GERD stable with PPIs. On statins for her elevated cholesterol. Complains of a pruritic and burning rash that is present on the breast. No lumps noted. This started recently after she started Eliquis. For now I will give her cetirizine. Mammogram done recently was normal. If it does not resolve with cetirizine and doxycycline thinking about the possibility of cellulitis within few days I will have to discontinue Eliquis and give her something else. [facility] Medical History History of tachycardia Pernicious anemia Mild recurrent major depression Pure hypercholesterolemia Chronic GERD Shoulder pain, right Abdominal pain IGNACIO I (cervical intraepithelial neoplasia I) Leg edema Neck pain Recent surgical procedure on lower extremity Edema Surgical History History of esophagogastroduodenoscopy (EGD) Hx of gastric bypass History of colonoscopy H/O abdominoplasty History of tubal ligation H/O thyroidectomy Family History Father Diabetes HTN (hypertension) Mother Diabetes HTN (hypertension) Sister Vaginal cancer Lung cancer Brother Leukemia Social History (Updated 10/28/23 @ 14:49 by Bell Peters MD) Housing: House Are you a primary care program director to a significant other at home: No 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) Alcohol intake: current Alcohol intake frequency: a few times a month Comment: medicated with ibuprofen previously Patient Tobacco Use Status: Former Tobacco user Quit Date: 10 yrs ago Tobacco use type: Cigarette e-Cigarette/Vaping Use: Never Used Second Hand Smoke Exposure: Yes service: No Current occupational status: disabled Sexual orientation: Straight/Heterosexual Gender identity: Female Cognitive needs: No Hearing needs: No Vision needs: Yes Questionnaire Thrive Questionnaire Date Thrive assessed: 09/06/23 [place]-7 AMB Questionnaire [place]-7 Date [place] - 7 assessed: 09/06/23 Source: Developed by Drs. Ty Gonzáles, Inocencia Arambula, Stephane Peter and colleagues, with an educational thor from [employer]. Review of Systems Const All systems reviewed & are unremarkable except as noted in HPI and below Eyes Reports no additional complaints, Denies change in vision and Denies other visual disturbances Card Denies chest pain at rest, Denies chest pain with activity, Denies edema, Denies irregular heart rhythm, Denies claudication, Denies dyspnea, Denies dyspnea on exertion, Denies orthopnea, Denies paroxysmal nocturnal dyspnea and Denies slow heart rate Resp Denies cough, Denies dyspnea and Denies dyspnea on exertion Skin/Breast Reports rash Physical exam (Primary Care) Vital Signs: Last Vital Signs BP 110/68 10/28/23 14:20 BMI result Body Mass Index 31.2 Tobacco/Smoking Status: Tobacco use Status Tobacco use date assessed 09/15/23 10/28/23 14:24 Patient Tobacco Use Status Former Tobacco user 10/28/23 14:49 Tobacco use type Cigarette 10/28/23 14:49 e-Cigarette/Vaping Use Never Used 10/28/23 14:49 Thrive Assessment: Date of Thrive Assessment Date Thrive assessed 09/06/23 10/28/23 14:24 Resp Effort & Inspection: normal respiratory effort Auscultation: clear to auscultation bilaterally Cardio Jugular venous distension: no JVD Rate: regular rate Rhythm: regular rhythm Heart sounds: S1 normal heart sound present and S2 normal heart sound present Skin Rashes: rashes noted Extrem General: Yes full ROM Psych Appearance: grossly normal Assessment and Plan Assessment & Plan (1) Left leg DVT: Code(s): I82.402 - Acute embolism and thrombosis of unspecified deep veins of left lower extremity Plan: Continue Eliquis. Follow-up with Hematology-Oncology. (2) Mild recurrent major depression: Code(s): F33.0 - Major depressive disorder, recurrent, mild Plan: Continue sertraline. (3) Chronic GERD: Comment: Continue ppi, carafate, avoid culprits- Mild epigastric tenderness Code(s): K21.9 - Gastro-esophageal reflux disease without esophagitis Plan: Continue PPIs. (4) Pure hypercholesterolemia: Code(s): E78.00 - Pure hypercholesterolemia, unspecified Plan: Continue statins. Orders: Orders Lipid Panel 5 Months E78.5 - Hyperlipidemia, unspecified Comprehensive [place]. Panel Fast 5 Months K22.70 - Ewing's esophagus without dysplasia Medications: New nystatin 1 appl topical BID 15 grams 0RF 2 weeks doxycycline hyclate 100 mg PO BID 10 tabs 0RF 5 days cetirizine (All Day Allergy (cetirizine)) 10 mg PO DAILY PRN 90 tabs 0RF allergy symptoms 90 days Coding Level of Care Code Est Pt Level 4 (56112) Diagnoses Left leg DVT I82.402 Mild recurrent major depression F33.0 Chronic GERD K21.9 Pure hypercholesterolemia E78.00 Time Spent (min) 24
[2023-10-28 14:20] VITALS: BP 110/68; BMI 31.2
== END 2023-10-28 14:56 | disposition home or self-care (01) ==
PROVIDERS: PCP Internal Medicine; Visit Provider Internal Medicine
DX: I82.402 Acute embolism and thrombosis of unspecified deep veins of left lower extremity (principal); F33.0 Major depressive disorder, recurrent, mild; K21.9 Gastro-esophageal reflux disease without esophagitis; E78.00 Pure hypercholesterolemia, unspecified
CPT/HCPCS: 99214

== ENCOUNTER 2024-02-18 13:24 | Outpatient (REF) | payer MEDICARE, MEDICAID, SELFPAY ==
--- NOTE | ~2024-02-18 | MM_ITS ---
EXAMINATION: MM SCREENING DIGITAL BREAST TOMOSYNTHESIS, BILATERAL CLINICAL INFORMATION: Screening. Asymptomatic. The patient has a history of prior reduction mammoplasty. COMPARISON: Mammography: This study is compared with prior exams dating back to 2019. TECHNIQUE: Digital breast tomosynthesis is performed in both the craniocaudal and mediolateral oblique views along with computer-aided detection (CAD). Synthesized 2D images are generated from the tomosynthesis. FINDINGS: The breasts are heterogeneously dense, which may obscure small masses (ACR BI-RADS breast composition Category c). There are no significant masses, abnormal calcifications, or other abnormalities. Post reduction changes are present in each breast. MM/MM tomosynthesis screening BI IMPRESSION: No mammographic evidence of malignancy. ASSESSMENT: BI-RADS BI-RADS 2 - Benign Findings RECOMMENDATION: Routine annual mammography screening. 1 year F/U This examination should not preclude the clinical evaluation of a suspicious palpable abnormality. This patient's information was entered into a reminder system with a target due date for their next mammogram. Electronically signed by: Katie Quintero MD 03/18/2024 03:42 PM EDT
== END 2024-02-18 13:25 | disposition home or self-care (01) ==
LOC: HO.MAMMO 13:24
PROVIDERS: PCP Internal Medicine; Visit Provider Internal Medicine
DX: Z12.31 Encounter for screening mammogram for malignant neoplasm of breast (principal)
CPT/HCPCS: 77063; 77067

== ENCOUNTER → 2024-02-18 13:30 | Outpatient (BNV) | payer MEDICARE, MEDICAID, SELFPAY | PROVIDERS: PCP Internal Medicine; Visit Provider Radiology Diagnostic Radiology | DX: Z12.31 Encounter for screening mammogram for malignant neoplasm of breast (principal) | CPT/HCPCS: 77063; 77067 ==

== ENCOUNTER 2024-02-21 11:11 | Outpatient (REF) | payer MEDICARE, MEDICAID, SELFPAY ==
[2024-02-21 12:27] LABS: Alanine Aminotransferase 28 U/L (0-31); Albumin Level 4.1 g/dL (3.5-5.0); Alkaline Phosphatase 88 U/L (39-117); Anion Gap 16 (12-20); Aspartate Amino Transferase 35 U/L (5-31); Bilirubin Total 1.2 mg/dL (0.0-1.0); Blood Urea Nitrogen 7 mg/dL (9-16); Calcium 9.7 mg/dL (8.4-10.2); Carbon Dioxide 25 mmol/L (22-29); Chloride 107 mmol/L (96-108); Cholesterol 261 mg/dL (<200); Estimated Glomerular Filt Rate > 60; Glucose Fasting 85 mg/dL (60-99); HDL Cholesterol 64 mg/dL (>40); LDL Cholesterol Calculated 147 mg/dL (<100); Potassium 5.2 mmol/L (3.3-5.1); Sodium 143 mmol/L (135-145); Total Protein 7.3 g/dL (6.5-8.0); Triglycerides 251 mg/dL (<150)
== END 2024-02-21 11:12 | disposition home or self-care (01) ==
LOC: HO.LAB 11:11
PROVIDERS: Absent Provider Internal Medicine; PCP Internal Medicine; Visit Provider Internal Medicine
DX: K22.70 Barrett's esophagus without dysplasia (principal); E78.5 Hyperlipidemia, unspecified
CPT/HCPCS: 36415; 80053; 80061

== ENCOUNTER 2024-03-08 11:15 | Outpatient (AMB) | payer MEDICARE, MEDICAID, SELFPAY ==
[2024-03-08 11:16] VITALS: BP 110/72; PULSE 103; O2SAT 98; BMI 31.5
--- NOTE | 2024-03-08 11:16 | A.OFFPC_ITS ---
Vital Signs 03/08/24 11:16 Height 5 ft 3 in Weight 178 lb BMI 31.5 BP 110/72 Blood Pressure Location Lt brachial Position Sitting Pulse 103 H Pulse Source Pulse Oximeter Pulse Oximetry (%) 98 Oxygen Delivery Method Room Air Intake Visit Reasons: neck pain Supervisor Assembling Required: No Accompanied by: Self / Same As Patient Allergies No Known Allergies Allergy (Verified 03/08/24 11:27) Medication List - Last Reconciled 03/08/24 by Bell Peters MD apixaban 5 mg PO BID atorvastatin 20 mg PO DAILY 90 days cetirizine (All Day Allergy (cetirizine)) 10 mg PO DAILY PRN 90 days cholecalciferol (vitamin D3) 125 mcg PO DAILY 90 days diclofenac sodium 1% (Arthritis Pain (diclofenac)) 2 grams topical QID 30 days diphenhydramine-zinc acetate 2-0.1 % (Benadryl Extra Strength) 1 appl topical BID PRN 30 days doxycycline hyclate 100 mg PO BID 5 days furosemide 10 mg (1/2 x 20 mg) PO QAM 90 days Grab bar As directed Grab bar As directed loratadine (Allergy Relief (loratadine)) 10 mg PO DAILY PRN 30 days montelukast 10 mg PO BEDTIME nystatin 1 appl topical BID 2 weeks nystatin 1 appl topical BID PRN 14 days omeprazole 40 mg PO DAILY PRN 90 days oxycodone-acetaminophen 10-325 mg 1 tab PO TID PRN 30 days sertraline 25 mg PO DAILY 90 days Shower Chair As directed sucralfate (Carafate) 10 mL PO BID [toilet seat elevator As directed] [toilet seat elevator As directed] triamcinolone acetonide 0.5% 1 appl topical BID PRN Tobacco use date assessed: 09/15/23 Fall risk assessment: No Falls in past year Last assessed Fall Risk: 03/08/24 Dental Screening Dental Screen Date: 09/15/23 HPI HPI Comments History of Present Illness Details This is a 63-year-old female with mild recurrent major depression, chronic GERD, pure hypercholesterolemia, history of left leg DVT and chronic neck pain that comes today for follow-up on her conditions. Depression stable with SSRIs. GERD stable with PPIs. Cholesterol elevated and she admits not being compliant with statins and will restart. Had left leg DVT and completed Eliquis. This was follow by Hematology-Oncology. Still has chronic neck pain that significantly relieves with opiates. Has limited range of motion and I will refer her to pain management. No chest pain or shortness on breath. She did had elevated potassium that will be repeated. [facility] Medical History (Updated 03/08/24 @ 11:32 by Bell Peters MD) History of tachycardia Pernicious anemia Mild recurrent major depression Pure hypercholesterolemia Chronic GERD Shoulder pain, right Abdominal pain IGNACIO I (cervical intraepithelial neoplasia I) Leg edema Neck pain Recent surgical procedure on lower extremity Edema Surgical History History of esophagogastroduodenoscopy (EGD) Hx of gastric bypass History of colonoscopy H/O abdominoplasty History of tubal ligation H/O thyroidectomy Family History Father Diabetes HTN (hypertension) Mother Diabetes HTN (hypertension) Sister Vaginal cancer Lung cancer Brother Leukemia Social History Housing: House Are you a primary intensive care ambulance paramedic to a significant other at home: No Do you presently have visiting nurse or other home services: Yes ([employer]) Alcohol intake: current Alcohol intake frequency: a few times a month Comment: medicated with ibuprofen previously Patient Tobacco Use Status: Former Tobacco user Tobacco use type: Cigarette e-Cigarette/Vaping Use: Never Used Second Hand Smoke Exposure: Yes service: No Current occupational status: disabled Sexual orientation: Straight/Heterosexual Gender identity: Female Cognitive needs: No Hearing needs: No Vision needs: Yes Questionnaire Thrive Questionnaire Date Thrive assessed: 09/06/23 AUDIT C Alcohol Use Questionnaire (AUDIT-C) 1. How often do you have a drink containing alcohol?: Never 3. How often do you have six or more drinks on one occasion?: Never Total Score: 0 Score Reviewed/Action Taken: No CAROLINA-7 AMB Questionnaire CAROLINA-7 Date CAROLINA - 7 assessed: 09/06/23 Source: Developed by Drs. Ty Gonzáles, Inocencia Arambula, Stephane Peter and colleagues, with an educational thor from [employer]. Review of Systems Const All systems reviewed & are unremarkable except as noted in HPI and below ENT Reports neck pain Card Denies chest pain at rest, Denies chest pain with activity, Denies edema, Denies irregular heart rhythm, Denies claudication, Denies dyspnea, Denies dyspnea on exertion, Denies orthopnea, Denies paroxysmal nocturnal dyspnea and Denies slow heart rate Resp Denies cough, Denies dyspnea and Denies dyspnea on exertion GI Denies abdominal pain, Denies change in bowel habits, Denies excessive flatus, Denies nausea and Denies vomiting Denies urinary incontinence, Denies urinary hesitancy and Denies urinary urgency Musc Denies atrophy, Denies deformity, Denies limited range of motion and Reports neck pain Physical exam (Primary Care) Vital Signs: Last Vital Signs Pulse 103 H 03/08/24 11:16 BP 110/72 03/08/24 11:16 Pulse Ox 98 03/08/24 11:16 Oxygen Delivery Method Room Air 03/08/24 11:16 BMI result Body Mass Index 31.5 BMI Assessment/Plan discussion: High BMI High, discussed plan: lifestyle, weight reduction, dietary and physical activity Tobacco/Smoking Status: Tobacco use Status Tobacco use date assessed 09/15/23 03/08/24 11:22 Patient Tobacco Use Status Former Tobacco user 03/08/24 11:22 Tobacco use type Cigarette 03/08/24 11:22 e-Cigarette/Vaping Use Never Used 03/08/24 11:22 Thrive Assessment: Date of Thrive Assessment Date Thrive assessed 09/06/23 03/08/24 11:22 Neck Other: Limited neck lateral movements and limited neck flexion/extension Neck: Yes normal visual inspection and Yes tender Resp Effort & Inspection: normal respiratory effort Auscultation: clear to auscultation bilaterally Cardio Jugular venous distension: no JVD Rate: regular rate Rhythm: regular rhythm Heart sounds: S1 normal heart sound present and S2 normal heart sound present Assessment and Plan Assessment & Plan (1) Mild recurrent major depression: Code(s): F33.0 - Major depressive disorder, recurrent, mild Plan: Continue SSRIs. (2) Chronic GERD: Comment: Continue ppi, carafate, avoid culprits- Mild epigastric tenderness Code(s): K21.9 - Gastro-esophageal reflux disease without esophagitis Plan: Continue PPIs. (3) Neck pain: Code(s): M54.2 - Cervicalgia Plan: Continue opiates as needed. Referred to pain management (4) Left leg DVT: Code(s): I82.402 - Acute embolism and thrombosis of unspecified deep veins of left lower extremity Plan: Completed Eliquis treatment. (5) Hyperkalemia: Code(s): E87.5 - Hyperkalemia Plan: Repeat potassium and EKG. (6) Pure hypercholesterolemia: Code(s): E78.00 - Pure hypercholesterolemia, unspecified Plan: Be compliant with statins. Orders: Orders Potassium Today E87.5 - Hyperkalemia ECG 12 lead EKG Today E87.5 - Hyperkalemia Medications: Refilled atorvastatin 20 mg PO DAILY 90 tabs 1RF 90 days Discontinued apixaban Discontinued Reason: Patient Completed Course 5 mg PO BID 60 tabs 3RF I82.402 - Acute embolism and thrombosis of unspecified deep veins of left lower extremity montelukast Discontinued Reason: Patient Completed Course 10 mg PO BEDTIME 10 tabs 0RF L25.9 - Unspecified contact dermatitis, unspecified cause nystatin Discontinued Reason: Patient Completed Course 1 appl topical BID 14 days PRN 15 grams 0RF rash R21 - Rash and other nonspecific skin eruption loratadine (Allergy Relief (loratadine)) Discontinued Reason: Patient Completed Course 10 mg PO DAILY 30 days PRN 30 tabs 0RF allergy symptoms doxycycline hyclate Discontinued Reason: Patient Completed Course 100 mg PO BID 5 days 10 tabs 0RF Coding Level of Care Code Est Pt Level 4 (15237) Complex EM visit Add On G2211 Diagnoses Mild recurrent major depression F33.0 Chronic GERD K21.9 Neck pain M54.2 Left leg DVT I82.402 Hyperkalemia E87.5 Pure hypercholesterolemia E78.00 Time Spent (min) 22
== END 2024-03-08 11:36 | disposition home or self-care (01) ==
PROVIDERS: PCP Internal Medicine; Visit Provider Internal Medicine
DX: F33.0 Major depressive disorder, recurrent, mild (principal); K21.9 Gastro-esophageal reflux disease without esophagitis; M54.2 Cervicalgia; I82.402 Acute embolism and thrombosis of unspecified deep veins of left lower extremity; E87.5 Hyperkalemia; E78.00 Pure hypercholesterolemia, unspecified
CPT/HCPCS: 99214; G2211

== ENCOUNTER 2024-03-08 11:43 | Outpatient (REF) | payer MEDICAID, SELFPAY ==
--- NOTE | 2024-03-08 11:50 | ECG_ITS ---
Test Reason : HYPER KALEMIA Blood Pressure : / mmHG Vent. Rate : 089 BPM Atrial Rate : 089 BPM P-R Int : 148 ms QRS Dur : 080 ms QT Int : 368 ms P-R-T Axes : 059 057 046 degrees QTc Int : 447 ms Normal sinus rhythm Possible Left atrial enlargement Borderline ECG When compared with ECG of 13-MAY-2022 13:05, No significant change was found Referred By: Bell Peters Electronically Signed By:REBECCA MALHOTRA
[2024-03-08 12:40] LABS: Alanine Aminotransferase 21 U/L (0-31); Albumin Level 4.1 g/dL (3.5-5.0); Alkaline Phosphatase 86 U/L (39-117); Anion Gap 13 (12-20); Aspartate Amino Transferase 36 U/L (5-31); Blood Urea Nitrogen 7 mg/dL (9-16); Calcium 9.5 mg/dL (8.4-10.2); Carbon Dioxide 28 mmol/L (22-29); Chloride 106 mmol/L (96-108); Cholesterol 276 mg/dL (<200); Estimated Glomerular Filt Rate > 60; Glucose Fasting 91 mg/dL (60-99); HDL Cholesterol 66 mg/dL (>40); LDL Cholesterol Calculated 160 mg/dL (<100); Potassium 4.8 mmol/L (3.3-5.1); Sodium 142 mmol/L (135-145); Total Protein 7.4 g/dL (6.5-8.0); Triglycerides 253 mg/dL (<150)
== END 2024-03-08 11:44 | disposition home or self-care (01) ==
LOC: HO.LAB 11:43
PROVIDERS: PCP Internal Medicine; Visit Provider Internal Medicine
DX: E78.00 Pure hypercholesterolemia, unspecified (principal); E78.5 Hyperlipidemia, unspecified; E87.5 Hyperkalemia
CPT/HCPCS: 36415; 80053; 80061; 93005

== ENCOUNTER 2024-03-17 10:22 | Outpatient (AMB) | payer MEDICARE, MEDICAID, SELFPAY ==
[2024-03-17 10:30] VITALS: BP 118/75; PULSE 109; O2SAT 97; BMI 31.5
--- NOTE | 2024-03-17 10:30 | A.OFFVIS_ITS ---
Vital Signs 03/17/24 10:30 Height 5 ft 3 in Weight 178 lb BMI 31.5 BP 118/75 Blood Pressure Location Lt brachial Position Sitting Pulse 109 H Pulse Source Pulse Oximeter Pulse Oximetry (%) 97 Oxygen Delivery Method Room Air Intake Visit Reasons: Cervicalgia Allergies No Known Allergies Allergy (Verified 03/17/24 10:30) Medication List - Last Reconciled 03/17/24 by Glendy Corral atorvastatin 20 mg PO DAILY 90 days cetirizine (All Day Allergy (cetirizine)) 10 mg PO DAILY PRN 90 days cholecalciferol (vitamin D3) 125 mcg PO DAILY 90 days diclofenac sodium 1% (Arthritis Pain (diclofenac)) 2 grams topical QID 30 days diphenhydramine-zinc acetate 2-0.1 % (Benadryl Extra Strength) 1 appl topical BID PRN 30 days furosemide 10 mg (1/2 x 20 mg) PO QAM 90 days Grab bar As directed Grab bar As directed nystatin 1 appl topical BID 2 weeks omeprazole 40 mg PO DAILY PRN 90 days oxycodone-acetaminophen 10-325 mg 1 tab PO TID PRN 30 days sertraline 25 mg PO DAILY 90 days Shower Chair As directed sucralfate (Carafate) 10 mL PO BID [toilet seat elevator As directed] [toilet seat elevator As directed] triamcinolone acetonide 0.5% 1 appl topical BID PRN HPI Comments Details: Nola is a very pleasant 63-year-old female who presents to the office today for evaluation and management of her chronic neck pain Patient has been suffering with this pain for greater than 30 years. Attributes the pain to a fall where she fractured C3-C4 C5. Following the injury she was treated with halo traction for 6 months. Denies history of cervical spinal surgery. Pain today is rated a 7/10, constant. She describes her pain has tight, spasming across the right upper back/shoulder. Denies radiation of the pain down the arm. Denies numbness, tingling, weakness of the right upper extremity Pain limits her range of motion. Denies any recent imaging Completed physical therapy < 1 year ago without improvement of her symptoms She is unable to use oral nonsteroidal anti-inflammatory medications due to history of bypass surgery. She has been using topical diclofenac without improvement. Prescribed chronic opioid therapy from her primary care doctor but pain persists In terms of muscle damage condition is described as stabbing, sharp, cramping, squeezing Pain is negatively impacting patient's enjoyment of life, general activity, mood, sleep, normal work Denies current use of anticoagulants. Denies implantable devices, pacemaker or defibrillator Denies current use of nicotine, tobacco, alcohol or illicit substances [facility] Medical History History of tachycardia Pernicious anemia Mild recurrent major depression Pure hypercholesterolemia Chronic GERD Shoulder pain, right Abdominal pain IGNACIO I (cervical intraepithelial neoplasia I) Leg edema Neck pain Recent surgical procedure on lower extremity Edema Surgical History History of esophagogastroduodenoscopy (EGD) Hx of gastric bypass History of colonoscopy H/O abdominoplasty History of tubal ligation H/O thyroidectomy Family History Father Diabetes HTN (hypertension) Mother Diabetes HTN (hypertension) Sister Vaginal cancer Lung cancer Brother Leukemia Social History Housing: House Are you a primary direct care counselor to a significant other at home: No Do 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) Alcohol intake: current Alcohol intake frequency: a few times a month Comment: medicated with ibuprofen previously Patient Tobacco Use Status: Former Tobacco user Tobacco use type: Cigarette e-Cigarette/Vaping Use: Never Used Second Hand Smoke Exposure: Yes service: No Current occupational status: disabled Sexual orientation: Straight/Heterosexual Gender identity: Female Cognitive needs: No Hearing needs: No Vision needs: Yes Review of Systems Const All systems reviewed & are unremarkable except as noted in HPI and below Physical Exam Vital Signs: Last Vital Signs Pulse 109 H 03/17/24 10:30 BP 118/75 03/17/24 10:30 Pulse Ox 97 03/17/24 10:30 Oxygen Delivery Method Room Air 03/17/24 10:30 BMI result Body Mass Index 31.5 General: awake, alert, oriented. Answers questions appropriately. Fully engaged in examination. Skin: warm, dry, intact HEENT: Normocephalic. Hearing intact. Cardiac: External chest normal in appearance. Respiratory: No cough, audible wheezing or stridor. Abdomen: without gross distension. MS: No obvious swelling or deformities. Able to transition from sit to stand unassisted. Ambulates with bilaterally normal heel strike and toe off Cervical Spine: Visible inspection without gross abnormality Significantly tender to palpation over right upper middle trapezius with taut bands and trigger points Non tender to palpation midline cervical vertebrae and cervical paraspinal muscles decreased cervical ROM in all planes Spurling compression test positive BUE strength 5/5 Neurological: Oriented to person, place, time and situation. Thought process intact. No gait abnormalities appreciated. Psychiatric: Appropriate mood and affect. Good judgment and insight. Assessment & Plan Assessment & Plan (1) Neck pain: Code(s): M54.2 - Cervicalgia Category: Medical (2) Trapezius muscle strain: Code(s): S46.819A - Strain of other muscles, fascia and tendons at shoulder and upper arm level, unspecified arm, initial encounter Category: Medical (3) Myofascial neck pain: Code(s): M54.2 - Cervicalgia Category: Medical (4) Cervical spondylolysis: Code(s): M43.02 - Spondylolysis, cervical region Category: Medical Plan X-ray cervical spine ordered for evaluation Salonpas topical patches, apply to most painful area. Mainly on for up to 8 hours. Methocarbamol 500 mg p.o. t.i.d. as needed. Patient advised on cautions for use. Do not take with alcohol or other PHARMACY INTAKE COORDINATOR depressants including your prescribed opioid medications. No driving while taking this medication. Will schedule patient for an office trigger point injections with the right trapezius All questions and concerns were answered, patient agrees with the plan. Follow up after injections, sooner if needed Orders: Orders XR cervical spine w flex/ext Today M54.2 - Cervicalgia Medications: New methocarbamol No driving while taking this medication. Do no take with alcohol or other PHARMACY INTAKE COORDINATOR Depressants 500 mg PO TID PRN 60 tabs 0RF muscle spasm capsaicin-menthol 0.025-1.25 % (Salonpas (capsaicin-menthol)) may leave on area for up to 8 hrs 1 patch topical TID 6 ea 6RF Coding Level of Care Code New Pt Level 4 (58225) Complex EM visit Add On G2211 Diagnoses Neck pain M54.2 Trapezius muscle strain S46.819A Myofascial neck pain M54.2 Cervical spondylolysis M43.02
== END 2024-03-17 11:03 | disposition home or self-care (01) ==
PROVIDERS: PCP Internal Medicine; Visit Provider Registered Nurse Emergency
DX: M54.2 Cervicalgia (principal); S46.819A Strain of other muscles, fascia and tendons at shoulder and upper arm level, unspecified arm, initial encounter; M43.02 Spondylolysis, cervical region
CPT/HCPCS: 99204; G2211

== ENCOUNTER 2024-03-17 10:22 | Outpatient (REF) | payer MEDICARE, MEDICAID, SELFPAY ==
--- NOTE | ~2024-03-17 | XR_ITS ---
EXAMINATION: XR CERVICAL SPINE CLINICAL INFORMATION: M54.2 - Cervicalgia COMPARISON: 01/07/2018, 12/07/2016. CT C-spine 03/12/2020. TECHNIQUE: 6 views of the cervical spine, inclusive of flexion and extension views, were obtained. FINDINGS: Neutral view demonstrates straightening of the normal lordosis. There is a minimal levoconvex scoliosis. There is a 2 mm retrolisthesis of C3 on C4. There is a 2 mm anterolisthesis C4 on C5. There is a 2 mm anterolisthesis of C7 on T1. Flexion and extension views show no worsening of subluxations to suggest instability. Normal C1-2 relationship. Severe multilevel disc degeneration present with sparing of C2-3. Associated multilevel bilateral hypertrophic degenerative facet changes are present, most significant on the right at C2-3. No prevertebral soft tissue abnormalities. There are right carotid bulb calcifications. Imaged lung apices are clear. XR/XR cervical spine w flex/ext IMPRESSION: 1. No acute findings of the cervical spine. 2. Advanced spondylosis as described. 3. No evidence of instability on flexion and extension views. Electronically signed by: Yosef Guardado MD 05/29/2024 03:56 PM EST
== END 2024-03-17 10:23 | disposition home or self-care (01) ==
LOC: HO.XRAY 10:22
PROVIDERS: PCP Internal Medicine; Visit Provider Registered Nurse Emergency
DX: M54.2 Cervicalgia (principal); S46.819D Strain of other muscles, fascia and tendons at shoulder and upper arm level, unspecified arm, subsequent encounter; M43.02 Spondylolysis, cervical region
CPT/HCPCS: 72052; 99202

== ENCOUNTER → 2024-03-17 11:24 | Outpatient (BNV) | payer MEDICARE, MEDICAID, SELFPAY | PROVIDERS: PCP Internal Medicine; Visit Provider Radiology Diagnostic Radiology | DX: M54.2 Cervicalgia (principal) | CPT/HCPCS: 72052 ==

== ENCOUNTER 2024-04-12 12:56 | Outpatient (AMB) | payer MEDICARE, MEDICAID, SELFPAY ==
--- NOTE | 2024-04-12 13:01 | A.OFFVIS_ITS ---
Vital Signs 04/12/24 13:21 Height 5 ft 3 in Weight 183 lb BMI 32.4 BP 122/72 Blood Pressure Location Lt brachial Position Sitting Respiration 16 Pulse 95 Pulse Source Pulse Oximeter Pulse Oximetry (%) 95 Oxygen Delivery Method Room Air Intake Visit Reasons: RIGHT TRAPEZIUS TRIGGER POINT INJECTIONS Intake Note: Patient comes in for trigger point injections. Reports pain 7/10. Javascript Software Engineer Required: Yes Javascript Software Engineer Services: Javascript Software Engineer Present Javascript Software Engineer Name: Celina Ca Allergies No Known Allergies Allergy (Verified 04/12/24 13:22) HPI Comments Details: Nola is presented herself today with completely different set of pain complaints compared to what she presented with last time in the office with nurse practitioner Eileen. Today she reports pain in the neck with radiation of the pain into the right upper extremity all the way to her fingers. She also reports minimal mobility of her right shoulder joint. She states that she is unable to lift the arm above the shoulder line. She is complaining on severe pain with flexing shoulder joint forward or backwards. She had an x-ray of the shoulder which was demonstrating prominent arthritis. She also stated that she had trigger point injections in the past in the trapezius area and they have those injections were not helping her. She had x-ray done of her neck however this x-ray is not read yet. The history in the past she had compression fracture of C4 C3 and C5 vertebra. She states that the fractures were 30 years ago more and somehow she states that she was told that the fractures did not heal and eventually she would need to have surgery on her neck. Considering my physical exam today I I am going to offer this patient intra-articular shoulder injection. We also will wait until her x-ray will be read here and we will obtain the MRI from outside facility (she does not remember whether this outside facilities [facility] or [facility]. ). After that we will schedule her for an appointment with me after the shoulder injection and we will discuss our findings and obtain reports. [facility] Medical History History of tachycardia Pernicious anemia Mild recurrent major depression Pure hypercholesterolemia Chronic GERD Shoulder pain, right Abdominal pain IGNACIO I (cervical intraepithelial neoplasia I) Leg edema Neck pain Recent surgical procedure on lower extremity Edema Surgical History History of esophagogastroduodenoscopy (EGD) Hx of gastric bypass History of colonoscopy H/O abdominoplasty History of tubal ligation H/O thyroidectomy Family History Father Diabetes HTN (hypertension) Mother Diabetes HTN (hypertension) Sister Vaginal cancer Lung cancer Brother Leukemia Social History Housing: House Are you a primary caretaker to a significant other at home: No 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) Alcohol intake: current Alcohol intake frequency: a few times a month Comment: medicated with ibuprofen previously Patient Tobacco Use Status: Former Tobacco user Tobacco use type: Cigarette e-Cigarette/Vaping Use: Never Used Second Hand Smoke Exposure: Yes service: No Current occupational status: disabled Sexual orientation: Straight/Heterosexual Gender identity: Female Cognitive needs: No Hearing needs: No Vision needs: Yes Review of Systems Const All systems reviewed & are unremarkable except as noted in HPI and below ENT Reports Normal hearing present Neuro Reports Normal hearing present, Denies Abnormal speech present and Denies Sensory deficit (Neuro) Physical Exam Vital Signs: Last Vital Signs Pulse 95 04/12/24 13:21 Resp 16 04/12/24 13:21 BP 122/72 04/12/24 13:21 Pulse Ox 95 04/12/24 13:21 Oxygen Delivery Method Room Air 04/12/24 13:21 BMI result Body Mass Index 32.4 Const General: no acute distress Nutritional Appearance: obese (Trivial obesity) centrally obese Orientation/consciousness: patient oriented x3 Eyes General: appearance normal, both eyes and all related structures Pupils: Equal, round and reactive pupils present EOM: EOMs intact bilaterally Neck Other: Flexing head forward aggravates pain less than flexing had backwards. Unable to rotate had sideways or flexing head forward or backwards. Severe tenderness on palpation in projection of the right shoulder. Very limited range of motion in the right shoulder. Unable to lift the arm above the shoulder line. Neck: No full ROM Chest Chest palpation & inspection: normal inspection of the chest Resp Effort & Inspection: normal respiratory effort, able to speak in complete sentences, normal respiratory pattern, no audible wheezes and no cough Cardio Jugular venous distension: no JVD GI Inspection: Yes normal to inspection Neuro General: patient oriented x3 and gait normal Cranial nerves: Yes CN's II-XII intact bilaterally, Yes Equal, round and reactive pupils present, Yes Normal hearing present and Yes Ability to bilaterally elevate shoulders present Speech: No Abnormal speech present Gait exam (Neuro): Normal gait present Motor exam (neuro): 5/5 motor strength present throughout Sensory Exam: No Sensory deficit (Neuro) Extrem General: No pedal edema Psych Speech and movement: Normal speech and movement present Affect: normal affect Attitude: cooperative Thought process: Normal thought process present Thought content: Normal thought content present Insight: Good insight present (Psych) Judgement: Good judgement present (Psych) Assessment & Plan Assessment & Plan (1) Cervical spondylolysis: Code(s): M43.02 - Spondylolysis, cervical region Category: Medical (2) Arthritis of right shoulder region: Code(s): M19.011 - Primary osteoarthritis, right shoulder Category: Medical (3) Shoulder pain, right: Code(s): M25.511 - Pain in right shoulder Category: Medical Plan 1. I will schedule this patient for therapeutic right shoulder steroid injection. 2. We will send for the MRI report in both facilities medical information release note from [facility] as well as from [facility]. 3. I will see the patient 2 weeks after the shoulder injection and we will evaluate the x-ray which was done for her at the [facility] and reports will be ready. 4. We will combine the results of the right shoulder injection if they help the patient and or we will see the results of MRI and x-ray which were performed in the past. Patient Instructions: I here by testify that I spent 36 minutes in conversation with this patient as well as planning her care evaluating her diagnostic studies and completing this note. business unit leader Celina aC was instrumental to keep this conversation in Danish. Coding Level of Care Code Est Pt Level 4 (43451) Diagnoses Cervical spondylolysis M43.02 Arthritis of right shoulder region M19.011 Shoulder pain, right M25.511
[2024-04-12 13:21] VITALS: BP 122/72; PULSE 95; RESP 16; O2SAT 95; BMI 32.4
== END 2024-04-12 13:34 | disposition home or self-care (01) ==
PROVIDERS: PCP Internal Medicine; Visit Provider Anesthesiology
DX: M43.02 Spondylolysis, cervical region (principal); M19.011 Primary osteoarthritis, right shoulder; M25.511 Pain in right shoulder
CPT/HCPCS: 99214

== ENCOUNTER → 2024-04-12 12:56 | Outpatient (BNVA) | payer MEDICARE, MEDICAID, SELFPAY | PROVIDERS: PCP Internal Medicine; Visit Provider Anesthesiology | DX: M43.02 Spondylolysis, cervical region (principal); M19.011 Primary osteoarthritis, right shoulder | CPT/HCPCS: 99212 ==

== ENCOUNTER 2024-09-28 14:22 | Outpatient (AMB) | payer MEDICARE, MEDICAID, SELFPAY ==
--- NOTE | 2024-09-28 14:28 | MHC.OFFVIS ---
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 No complaints. Last Pap/HPV was negative in 09/24 preceded by IGNACIO 1 in 04/23 Last Mammogram was BI-RADS 2 in 02/25 Last Colonoscopy was done in 09/24, the recommendation was to repeat in 5 years Last DEXA scan was done in 09/25 [facility] Medical History History of tachycardia Pernicious anemia Mild recurrent major depression Pure hypercholesterolemia Chronic GERD Shoulder pain, right Abdominal pain IGNACIO I (cervical intraepithelial neoplasia I) Leg edema Neck pain Recent surgical procedure on lower extremity Edema Surgical History History of esophagogastroduodenoscopy (EGD) Hx of gastric bypass History of colonoscopy H/O abdominoplasty History of tubal ligation H/O thyroidectomy Family History Father Diabetes HTN (hypertension) Mother Diabetes HTN (hypertension) Sister Vaginal cancer Lung cancer Brother Leukemia Social History Housing: House Are you a primary care management specialist to a significant other at home: No Do you 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) Alcohol intake: current Alcohol intake frequency: a few times a month Comment: medicated with ibuprofen previously Patient Tobacco Use Status: Former Tobacco user Tobacco use type: Cigarette e-Cigarette/Vaping Use: Never Used Second Hand Smoke Exposure: Yes Patient : No service: No Current occupational status: disabled Sexual orientation: Straight/Heterosexual Gender identity: Female Cognitive needs: No Hearing needs: No Vision needs: Yes Female Reproductive History Menstrual Total pregnancies: 5 Full term: 4 Ab spontaneous: 1 Date of last pap smear: 09/10/22 (negative hpv, negative pap smear) Date of Mammogram: 02/18/24 (bi-rad 2) Date of last Bone Density Screenin09/22/23 Review of Systems Const All systems reviewed & are unremarkable except as noted in HPI and below Card Reports as per HPI Resp Reports as per HPI GI Reports as per HPI and Reports no additional complaints Reports as per HPI Physical Exam Vital Signs: Last Vital Signs BP 126/86 09/28/24 14:31 BMI result Body Mass Index 32.6 Const General: cooperative, healthy appearing and comfortable Chest Chest palpation & inspection: normal inspection of the chest and normal palpation of entire chest wall Breast/axilla inspection: normal inspection of the breasts and normal inspection of the axillae Breast/axilla palpation: normal palpation of the breasts, normal palpation of the axillae and no axillary lymphadenopathy Resp Effort & Inspection: normal respiratory effort Auscultation: clear to auscultation bilaterally Percussion: percussion normal Cardio Palpation: normal PMI Rate: regular rate Rhythm: regular rhythm Heart sounds: no murmurs and no rubs Peripheral pulses: Peripheral pulses 2+ throughout GI Inspection: Yes normal to inspection Palpation (GI): Soft to palpation, nontender, no guarding, not rigid and No hepatosplenomegaly present Percussion: Yes normal to percussion Auscultation: normal bowel sounds Rectal Exam - Female: deferred General: Yes bladder normal to palpation External Female Exam: No lesion Speculum Exam - Vagina: normal appearance of the vagina, normal palpation, normal vaginal discharge and not erythematous Speculum Exam - Cervix: normal appearance of the cervix and normal palpation Bimanual exam- vagina & uterus: normal bimanual exam, normal palpation, uterine size normal, bladder normal to palpation, consistency normal and normal palpation Bimanual Exam- Adnexa, other: normal adnexae, no masses and no tenderness Assessment & Plan Assessment & Plan (1) Well woman exam: Code(s): Z01.419 - Encounter for gynecological examination (general) (routine) without abnormal findings Category: Medical Plan: Co testing done Counseled the patient about the recommended dietary allowance of 1200 mg of Calcium & 800 IU of vitamin D. Instructions given the patient to schedule next screening Mammogram in 02/26. The patient was instructed to perform monthly self-breast exams and to schedule an annual exam in a year; All questions answered and the patient verbalized understanding. Coding Level of Care Code Est Pt Prev Care >65y(77087) Diagnoses Well woman exam Z01.419
[2024-09-28 14:31] VITALS: BP 126/86; BMI 32.6
== END 2024-09-28 14:55 | disposition home or self-care (01) ==
LOC: HO.HWS 14:22
PROVIDERS: PCP Internal Medicine; Visit Provider Obstetrics & Gynecology
DX: Z01.419 Encounter for gynecological examination (general) (routine) without abnormal findings (principal)
CPT/HCPCS: G0101; Q0091

== ENCOUNTER 2024-09-28 14:22 | Outpatient (REF) | payer MEDICARE, MEDICAID, SELFPAY ==
[2024-10-03 14:57] LABS: HPV Genotype 16 Negative (Negative); HPV Genotype 18 Negative (Negative); HPV High Risk Negative (Negative)
== END 2024-09-28 14:23 | disposition home or self-care (01) ==
LOC: HO.LNP 14:22
PROVIDERS: PCP Internal Medicine; Visit Provider Obstetrics & Gynecology
DX: Z12.4 Encounter for screening for malignant neoplasm of cervix (principal); Z11.51 Encounter for screening for human papillomavirus (HPV); N87.0 Mild cervical dysplasia
CPT/HCPCS: 87626; 88175; G0101; Q0091

== ENCOUNTER 2025-02-12 08:14 | Outpatient (REF) | payer MEDICARE, MEDICAID, SELFPAY ==
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
[2025-02-12 09:05] LABS: Potassium 4.0 mmol/L (3.3-5.1)
== END 2025-02-12 08:15 | disposition home or self-care (01) ==
LOC: HO.LAB 08:14
PROVIDERS: PCP Internal Medicine; Visit Provider Internal Medicine
DX: Z00.00 Encounter for general adult medical examination without abnormal findings (principal); M70.61 Trochanteric bursitis, right hip; F33.0 Major depressive disorder, recurrent, mild; M79.672 Pain in left foot; E55.9 Vitamin D deficiency, unspecified; E78.00 Pure hypercholesterolemia, unspecified
CPT/HCPCS: 36415; 84132; 96127; 99212

== ENCOUNTER 2025-02-12 13:43 | Outpatient (AMB) | payer MEDICARE, MEDICAID, SELFPAY ==
[2025-02-12 13:48] VITALS: BP 118/76; PULSE 108; O2SAT 98; BMI 33.0
--- NOTE | 2025-02-12 13:50 | A.OFFVIS_ITS ---
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 Accompanied by: Self / Same As Patient Allergies No Known Allergies Allergy (Verified 02/12/25 14:23) Medication List - Last Reconciled 02/12/25 by Bell Peters MD atorvastatin 20 mg PO DAILY 90 days capsaicin-menthol 0.025-1.25 % (Salonpas (capsaicin-menthol)) 1 patch topical TID cetirizine (All Day Allergy (cetirizine)) 10 mg PO DAILY PRN 90 days cholecalciferol (vitamin D3) 125 mcg PO DAILY 90 days diclofenac sodium 1% (Arthritis Pain (diclofenac)) 2 grams topical QID 30 days diphenhydramine-zinc acetate 2-0.1 % (Benadryl Extra Strength) 1 appl topical BID PRN 30 days furosemide 10 mg (1/2 x 20 mg) PO QAM 90 days Grab bar As directed Grab bar As directed methocarbamol 500 mg PO TID PRN nystatin 1 appl topical BID 2 weeks omeprazole 40 mg PO DAILY PRN 90 days oxycodone-acetaminophen 10-325 mg 1 tab PO TID PRN 30 days sertraline 25 mg PO DAILY 90 days Shower Chair As directed sucralfate (Carafate) 10 mL PO BID [toilet seat elevator As directed] [toilet seat elevator As directed] triamcinolone acetonide 0.5% 1 appl topical BID PRN HPI HPI Comments History of Present Illness Details The patient is a 64-year-old female presenting for a Medicare wellness exam. In December 2019, the patient underwent a colonoscopy which revealed a tubular adenoma. The next colonoscopy is scheduled for 2026. The patient has a history of mild depression and is currently on sertraline for management. She does not currently see a psychiatrist but is receiving medication. The patient reports a history of bursitis of the hip, which has been managed with physical therapy. She experiences limitations in movement of the right shoulder and has undergone therapy for this condition. Preventative care measures include a bone density test conducted last year, which was normal, with the next test scheduled for 2025. A Pap smear conducted this year was normal, and a mammogram done last year was also normal. [facility] handed to patient. [place] of care reviewed and updated. [facility] Medical History (Updated 02/12/25 @ 14:41 by Bell Peters MD) History of tachycardia Pernicious anemia Mild recurrent major depression Pure hypercholesterolemia Chronic GERD Shoulder pain, right Abdominal pain IGNACIO I (cervical intraepithelial neoplasia I) Leg edema Neck pain Recent surgical procedure on lower extremity Edema Surgical History History of esophagogastroduodenoscopy (EGD) Hx of gastric bypass History of colonoscopy H/O abdominoplasty History of tubal ligation H/O thyroidectomy Family History Father Diabetes HTN (hypertension) Mother Diabetes HTN (hypertension) Sister Vaginal cancer Lung cancer Brother Leukemia Social History Housing: House Are you a primary personal care aide to a significant other at home: No Do you presently have 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) Alcohol intake: current Alcohol intake frequency: a few times a month Comment: medicated with ibuprofen previously Patient Tobacco Use Status: Former Tobacco user Tobacco use type: Cigarette e-Cigarette/Vaping Use: Never Used Second Hand Smoke Exposure: Yes service: No Current occupational status: disabled Sexual orientation: Straight/Heterosexual Gender identity: Female Cognitive needs: No Hearing needs: No Vision needs: Yes Questionnaire Medicare Wellness Checkup What [age] 65-67 What gender do you identify with?: female During the past 4 weeks, how much have you been bothered by emotional problems such as feeling anxious, depressed, irritable, sad or downhearted, and blue?: moderately During the past 4 weeks, has your physical & emotional health limited your social activities with family, friends, neighbors, or groups?: moderately During the past 4 weeks, how much bodily pain have you generally had?: severe pain During the past 4 weeks, what was the hardest physical activity you could do for at least 2 minutes?: moderate Can you get to places out of walking distance without help? (For eg., can you travel alone on buses, taxis or drive your car?): Yes Can you go shopping for groceries or clothes without someone's help?: No Can you prepare your own meals?: No Can you do your housework without help?: No Because of any health problems, do you need the help of another person with your personal care needs such as eating, bathing, dressing or getting around the house?: Yes Can you handle your own money without help?: Yes During the past 4 weeks, how would you rate your health in general?: poor During the past 4 weeks how have things been going for you?: good & bad parts about equal Are you having difficulties driving your car?: sometimes Do you always fasten your seat belt when you are in a car?: yes, usually During past 4 weeks, have you been bothered by the following: never: Trouble eating well? and Teeth or denture problems? and sometimes: Falling or dizzy when standing up, Sexual problems?, Problems using the telephone? and Tiredness or fatigue? Have you fallen 2 or more times in the past year?: No Are you afraid of falling?: No Are you a smoker?: no During the past 4 weeks, how many drinks of wine, beer, or other alcoholic beverages did you have?: no alcohol at all Do you exercise for about 20 minutes 3 or more times a week?: no, I usually do not exercise this much Have you been given information to help with the following?: no: Hazards in your house that might hurt you? and no: Keeping track of your medications? How often do you have trouble taking medicines the way you have been told to take them?: I always take medicine as prescribed How confident are you that you can control & manage most of your health problems?: not very confident What is your race?: or origin or descent Mini Mental State Exam (MMSE) Orientation What is the (year) (season) (date) (day) (month)?: year, season, date, day and month Where are we (state) (county) (town or city) (hospital) (floor)?: state, county, town or city, hospital/clinic and floor Registration Name of 3 unrelated objects clearly and slowly, then ask patient to repeat all 3 of them. (1st repeat determines score. Make sure they can repeat all three): object 1, object 2 and object 3 Attention & Calculation (CHOOSE ONE) Spell WORLD backwards (DLROW): 5 letters Recall Ask patient to repeat the 3 items from question #3.: object 1 and object 2 Language Show patient a wristwatch & ask what it is. Repeat for pencil.: watch and pencil Ask the patient to repeat the phrase 'No ifs, ands, or buts' after you.: correct Ask the patient to 'take a piece of paper with their right hand' 'fold paper in half' 'place paper on floor': take paper in right hand and fold paper in half Print the sentence 'CLOSE YOUR EYES' on a piece. If patient actually closes eyes then score.: followed written direction Give patient a blank piece of paper & ask to write a sentence. Score if it contains a noun & verb.: sentence contains subject and verb Ask patient to copy figure of intersecting pentagons exactly. Score if all 10 angles & 2 intersects are included.: all 10 angles present & 2 are intersected Score Score: 28 Activity of Daily Living Bathing - sponge bath, tub bath or shower: receives help in bathing more than one body part (or not bathed) Dressing - getting clothes from closets & drawers, including inner/outer garments & fasteners.: receives help getting clothes or getting dressed, or stays undressed Toileting - going to the 'toilet room' for urine/bowel elimination & cleaning self/arranging clothes: goes to toilet room, cleans self, arranges clothes without help Transfer: moves in & out of bed and chair without help (may use support object) Continence: has occasional 'accidents' Feeding: feeds self without help Total Score: 2 Information obtained from: patient Using telephone: independent Traveling: independent Shopping: dependent Preparing meals: dependent Housework: dependent Taking medicine: independent Managing money: independent PHQ-9 Over the last 2 weeks, how often have you been bothered by any of the following problems? 1. Little interest or pleasure in doing things: not at all 2. Feeling down, depressed, or hopeless: more than half the days 3. Trouble falling or staying asleep, or sleeping too much: more than half the days 4. Feeling tired or having little energy: more than half the days 5. Poor appetite or overeating: more than half the days 6. Feeling bad about yourself - or that you are a failure or have let yourself or your family down: not at all 7. Trouble concentrating on things, such as reading the newspaper or watching television: not at all 8. Moving or speaking so slowly that other people could have noticed. Or the opposite - being so fidgety or restless that you have been moving around a lot more than usual: not at all 9. Thoughts that you would be better off or of hurting yourself in some way: not at all Total score: 8 Depression Screening Interpretation: Positive Depression Screening Follow-up: Existing condition, In treatment and Follow-up Visit Requested Depression Screening Done: Yes [id number] - PHQ-9 Billing: Yes Source: Developed by Drs. Ty Gonzáles, Inocencia Arambula, Stephane Peter and colleagues, with an educational thor from [employer]. Review of Systems Const All systems reviewed & are unremarkable except as noted in HPI and below Card Denies chest pain at rest, Denies chest pain with activity, Denies edema, Denies irregular heart rhythm, Denies claudication, Denies dyspnea, Denies dyspnea on exertion, Denies orthopnea, Denies paroxysmal nocturnal dyspnea and Denies slow heart rate Resp Denies cough, Denies dyspnea and Denies dyspnea on exertion GI Denies abdominal pain, Denies change in bowel habits, Denies excessive flatus, Denies nausea and Denies vomiting Denies urinary incontinence, Denies urinary hesitancy and Denies urinary urgency Musc Denies atrophy, Denies deformity and Denies limited range of motion Physical Exam Vital Signs: Last Vital Signs Pulse 108 H 02/12/25 13:48 BP 118/76 02/12/25 13:48 Pulse Ox 98 02/12/25 13:48 Oxygen Delivery Method Room Air 02/12/25 13:48 BMI result Body Mass Index 33.0 Const Orientation/consciousness: patient oriented x3 Resp Effort & Inspection: normal respiratory effort Auscultation: clear to auscultation bilaterally Cardio Jugular venous distension: no JVD Rate: regular rate Rhythm: regular rhythm Heart sounds: S1 normal heart sound present and S2 normal heart sound present Neuro General: patient oriented x3 and no focal motor deficits Romberg Test: Negative Extrem Right upper extremity: shoulder/upper arm Details: abnormal ROM Details: pain with active ROM Details: in ABduction and in extension Assessment & Plan Assessment & Plan (1) Encounter for annual wellness exam in Medicare patient: Code(s): Z00.00 - Encounter for general adult medical examination without abnormal findings (2) Left foot pain: Code(s): M79.672 - Pain in left foot (3) Trochanteric bursitis, right hip: Code(s): M70.61 - Trochanteric bursitis, right hip (4) Mild recurrent major depression: Code(s): F33.0 - Major depressive disorder, recurrent, mild Plan The patient will continue with her current medication regimen for mild depression, including sertraline, and will be monitored for any changes in symptoms. A referral to a psychiatrist is not currently planned, but medication management will continue under primary care supervision. For the bursitis of the hip, physical therapy will be continued to manage symptoms and improve mobility. The patient will be encouraged to perform exercises that enhance joint flexibility and strength. Preventative care measures include scheduling the next colonoscopy for 2026 and the next bone density test for 2025. Routine screenings such as Pap smears and mammograms will continue as per the recommended schedule. Patient was informed and verbally consented to the use of an ambient scribe for clinic note documentation during this visit. Orders: Orders MM tomosynthesis screening BI Today Z12.31 - Encounter for screening mammogram for malignant neoplasm of breast XR foot LT 2V Today M79.672 - Pain in left foot Lipid Panel Today E78.5 - Hyperlipidemia, unspecified Vitamin D 25-OH Total Today E55.9 - Vitamin D deficiency, unspecified PT Evaluation and Treatment Today M70.61 - Trochanteric bursitis, right hip Comprehensive [place]. Panel Fast Today E78.00 - Pure hypercholesterolemia, unspecified Referrals Podiatry Referral M79.672 - Pain in left foot Quality Reporting (2020) Depression/Bipolar (159/160/161/177) PHQ-9: Total score: 8 Coding Level of Care Code Medicare Subsequent (G0439) Est Pt Level 3 (42719) Diagnoses Encounter for annual wellness exam in Medicare patient Z00.00 Left foot pain M79.672 Trochanteric bursitis, right hip M70.61 Mild recurrent major depression F33.0 Additional Codes PHQ-9 - 67544 - PHQ-9 Billing: Yes ([id number]) Time Spent (min) 33
== END 2025-02-12 14:41 | disposition home or self-care (01) ==
LOC: HO.HMCH 13:44
PROVIDERS: PCP Internal Medicine; Visit Provider Internal Medicine
DX: Z00.00 Encounter for general adult medical examination without abnormal findings (principal); M79.672 Pain in left foot; M70.61 Trochanteric bursitis, right hip; F33.0 Major depressive disorder, recurrent, mild

== ENCOUNTER 2025-02-21 10:18 | Outpatient (AMB) | payer MEDICARE, MEDICAID, SELFPAY ==
[2025-02-21 10:24] VITALS: BP 120/86; PULSE 90; TEMP 36.8; O2SAT 96; BMI 32.9
--- NOTE | 2025-02-21 10:24 | AM.OFFWIN_ITS ---
Intake Vital Signs 02/21/25 10:24 Height 5 ft 3 in Weight 186 lb BMI 32.9 BP 120/86 Blood Pressure Location Rt brachial Position Sitting Pulse 90 Pulse Source Pulse Oximeter Temp 98.3 F Temp Source Oral Pulse Oximetry (%) 96 Oxygen Delivery Method Room Air Intake Visit Reasons: EP-lt upper back bee sting Intake Note: presents with left upper back pain after a bee stung her in her sleep a little over a week ago Patient Tobacco Use Status: Former Tobacco user Allergies No Known Allergies Allergy (Verified 02/21/25 10:27) Do you need a note to return to daycare/school/sports/work: No HPI HPI Comments History of Present Illness Details History of Present Illness - The patient is a 64-year-old female pr esenting with a reaction following a bee sting. - The bee sting occurred on Wednesday, resu lting in a rash and swelling at the site. - The swelling has since subsided, but t he patient experiences chills at night. - There is no history of shortness of br eath, wheezing, or tingling of the lips. - The patient has been stung by a bee be fore, but this is not the first occurrence. - Recently, there was a small amount of pus at the site and no bleeding. - The patient experiences significant it caio, leading to frequent scratching. - She denies fever, chills, CP, SOB, sor e throat, wheezing, joint pain, or rashes. Physical Exam General: Cooperative, healthy appearing, comfortable, no acute distress and well developed Orientation: Patient oriented x3 Respiratory: Normal respiratory effort and able to speak in complete sentences. Clear to auscultation bilaterally Cardiovascular: Regular rate and rhythm. Normal S1 and S2 Skin: Bite noted on the left upper left back over the scapula with erythema and slight warmth. No streaking noted, no induration, or fluctuance noted. Patient was informed and verbally consented to the use of an ambient scribe for clinic note documentation during this visit. [facility] Medical History History of tachycardia Pernicious anemia Mild recurrent major depression Pure hypercholesterolemia Chronic GERD Shoulder pain, right Abdominal pain IGNACIO I (cervical intraepithelial neoplasia I) Leg edema Neck pain Recent surgical procedure on lower extremity Edema Surgical History History of esophagogastroduodenoscopy (EGD) Hx of gastric bypass History of colonoscopy H/O abdominoplasty History of tubal ligation H/O thyroidectomy Family History Father Diabetes HTN (hypertension) Mother Diabetes HTN (hypertension) Sister Vaginal cancer Lung cancer Brother Leukemia Social History Housing: House Are you a primary pharmacy care coordinator to a significant other at home: No Do you presently have visiting nurse or 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 home services: 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) Alcohol intake: current Alcohol intake frequency: a few times a month Comment: medicated with ibuprofen previously Patient Tobacco Use Status: Former Tobacco user Tobacco use type: Cigarette e-Cigarette/Vaping Use: Never Used Second Hand Smoke Exposure: Yes service: No Current occupational status: disabled Sexual orientation: Straight/Heterosexual Gender identity: Female Cognitive needs: No Hearing needs: No Vision needs: Yes Review of Systems Const All systems reviewed & are unremarkable except as noted in HPI and below Physical Exam Vital Signs: Last Vital Signs Temp 98.3 F 02/21/25 10:24 Pulse 90 02/21/25 10:24 BP 120/86 02/21/25 10:24 Pulse Ox 96 02/21/25 10:24 Oxygen Delivery Method Room Air 02/21/25 10:24 BMI result Body Mass Index 32.9 Assessment & Plan Assessment & Plan (1) Bee sting: Code(s): T63.441A - Toxic effect of venom of bees, accidental (unintentional), initial encounter Qualifiers: Encounter type: initial encounter Injury intent: accidental or unintentional Qualified Code(s): T63.441A - Toxic effect of venom of bees, accidental (unintentional), initial encounter (2) Cellulitis: Code(s): L03.90 - Cellulitis, unspecified Qualifiers: Site of cellulitis: other site Qualified Code(s): L03.818 - Cellulitis of other sites Plan Most likely cellulitis and allergic reaction from the bee sting Plan - Initiate antibiotic therapy for cellulitis for seven days. - Prescribe prednisone for five days to alleviate itching. - Recommend an antihistamine such as Zyrtec for allergic symptoms. - Advise monitoring for fever, increased redness, or swelling at the site. Medications: New cephalexin 500 mg PO Q6H 28 caps 0RF prednisone 40 mg (2 x 20 mg) PO DAILY 10 tabs 0RF Refilled cetirizine (All Day Allergy (cetirizine)) 10 mg PO DAILY PRN 90 tabs 0RF allergy symptoms 90 days Coding Level of Care Code Est Pt Level 3 (34314) Diagnoses Bee sting, accidental or unintentional, initial encounter T63.441A Encounter type: initial encounter Injury intent: accidental or unintentional Cellulitis of other specified site L03.818 Site of cellulitis: other site
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
== END 2025-02-21 12:29 | disposition home or self-care (01) ==
PROVIDERS: PCP Internal Medicine; Visit Provider Physician Assistant Medical
DX: T63.441A Toxic effect of venom of bees, accidental (unintentional), initial encounter (principal); L03.818 Cellulitis of other sites

== ENCOUNTER → 2025-02-21 10:18 | Outpatient (BNVA) | payer MEDICARE, MEDICAID, SELFPAY | PROVIDERS: PCP Internal Medicine; Visit Provider Physician Assistant Medical | DX: L03.818 Cellulitis of other sites (principal); T63.441A Toxic effect of venom of bees, accidental (unintentional), initial encounter | CPT/HCPCS: 99212 ==

== ENCOUNTER 2025-03-01 07:06 | Outpatient (REF) | payer MEDICARE, MEDICAID, SELFPAY ==
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
[2025-03-01 08:45] LABS: Alanine Aminotransferase 34 U/L (0-31); Albumin Level 4.3 g/dL (3.5-5.0); Alkaline Phosphatase 88 U/L (39-117); Anion Gap 10 (12-20); Aspartate Amino Transferase 55 U/L (5-31); Blood Urea Nitrogen 7 mg/dL (9-16); Calcium 9.4 mg/dL (8.4-10.2); Carbon Dioxide 29 mmol/L (22-29); Chloride 110 mmol/L (96-108); Cholesterol 269 mg/dL (<200); Estimated Glomerular Filt Rate > 60; HDL Cholesterol 57 mg/dL (>40); Potassium 4.7 mmol/L (3.3-5.1); Sodium 144 mmol/L (135-145); Total Protein 7.5 g/dL (6.5-8.0); Triglycerides 223 mg/dL (<150)
== END 2025-03-01 07:07 | disposition home or self-care (01) ==
LOC: HO.LAB 07:06
PROVIDERS: PCP Internal Medicine; Visit Provider Internal Medicine
DX: E55.9 Vitamin D deficiency, unspecified (principal); E78.00 Pure hypercholesterolemia, unspecified
CPT/HCPCS: 36415; 80053; 80061; 82306

== ENCOUNTER → 2025-03-10 07:45 | Outpatient (BNV) | payer MEDICARE, MEDICAID, SELFPAY | PROVIDERS: PCP Internal Medicine; Visit Provider Internal Medicine | DX: Z12.31 Encounter for screening mammogram for malignant neoplasm of breast (principal) | CPT/HCPCS: 77063; 77067 ==

== ENCOUNTER 2025-03-10 07:46 | Outpatient (REF) | payer MEDICARE, MEDICAID, SELFPAY ==
--- NOTE | ~2025-03-10 | MM_ITS ---
EXAMINATION: MM SCREENING DIGITAL BREAST TOMOSYNTHESIS, BILATERAL CLINICAL INFORMATION: Screening. Asymptomatic. COMPARISON: Mammography: Comparison is made with available priors TECHNIQUE: Digital breast mammography with tomosynthesis is performed in both the craniocaudal and mediolateral oblique views along with computer-aided detection (CAD). FINDINGS: The breasts are heterogeneously dense, which may obscure small masses (ACR BI-RADS breast composition Category c). Bilateral reduction mammoplasty. There are no significant masses, abnormal calcifications, or other abnormalities. MM/MM tomosynthesis screening BI IMPRESSION: No mammographic evidence of malignancy. ASSESSMENT: BI-RADS BI-RADS 2 - Benign Findings RECOMMENDATION: Routine annual mammography screening. 1 year F/U This examination should not preclude the clinical evaluation of a suspicious palpable abnormality. This patient's information was entered into a reminder system with a target due date for their next mammogram. Electronically signed by: Evy Guerrero DO 03/13/2025 12:47 PM EDT
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
== END 2025-03-10 07:47 | disposition home or self-care (01) ==
LOC: HO.MAMMO 07:46
PROVIDERS: PCP Internal Medicine; Visit Provider Internal Medicine
DX: Z12.31 Encounter for screening mammogram for malignant neoplasm of breast (principal)
CPT/HCPCS: 77063; 77067

== ENCOUNTER 2025-03-12 14:04 | Outpatient (AMB) | payer MEDICARE, MEDICAID, SELFPAY ==
--- NOTE | 2025-03-12 14:16 | MHC.OFFVIS ---
Vital Signs 03/12/25 14:23 Height 5 ft 3 in Weight 186 lb BMI 32.9 Intake Visit Reasons: New Pt - left foot pain Intake Note: Nola is a 64 year old female who presents today as a new patient for an evaluation of her pain in left foot. She mentions ongoing pain in her left foot has been going on for about a month. Patient states pain is worse while walking. She also notices sharp pain when she is resting foot. She has tried Tylenol which has provided little relief. Vice President Of Engineering Services: Vice President Of Engineering Present ([id number]) Accompanied by: Son Allergies No Known Allergies Allergy (Verified 03/12/25 14:21) HPI HPI New Pt - left foot pain: Details: 64-year-old female presents today for initial evaluation of left heel pain. She states that the pain has been present for the past 6 weeks. Denies acute trauma on onset. Pain is worst when walking, also present when resting. She denies a history of heel pain. She states she has not done anything for treatment so far other than oxycodone which she takes for her back. [facility] Medical History History of tachycardia Pernicious anemia Mild recurrent major depression Pure hypercholesterolemia Chronic GERD Shoulder pain, right Abdominal pain IGNACIO I (cervical intraepithelial neoplasia I) Leg edema Neck pain Recent surgical procedure on lower extremity Edema Surgical History History of esophagogastroduodenoscopy (EGD) Hx of gastric bypass History of colonoscopy H/O abdominoplasty History of tubal ligation H/O thyroidectomy Family History Father Diabetes HTN (hypertension) Mother Diabetes HTN (hypertension) Sister Vaginal cancer Lung cancer Brother Leukemia Social History Housing: House Are you a primary pharmacy care coordinator to a significant other at home: No Do you presently have visiting nurse 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) Alcohol intake: current Alcohol intake frequency: a few times a month Comment: medicated with ibuprofen previously Patient Tobacco Use Status: Former Tobacco user Tobacco use type: Cigarette e-Cigarette/Vaping Use: Never Used Second Hand Smoke Exposure: Yes service: No Current occupational status: disabled Sexual orientation: Straight/Heterosexual Gender identity: Female Cognitive needs: No Hearing needs: No Vision needs: Yes Review of Systems Const All systems reviewed & are unremarkable except as noted in HPI and below Physical Exam Vital Signs: BMI result Body Mass Index 32.9 Extrem Other: *Bilateral Lower Extremity Focused Exam Vascular: DP/PT 2/4, CFT less than 3 seconds all digits, temperature gradient warm to cool bilaterally, (+) varicosities bilateral lower extremities worst over dorsal left foot. No pedal edema. Derm: No open wounds or lacerations. No ecchymosis. No clinical signs of infection. Neuro: Protective sensation grossly intact to bilateral lower extremities. Negative Tinel sign. MSK: Moderate tenderness on palpation along the plantar medial calcaneal tubercle, and the medial plantar fascia band up to 3 cm distal to the insertion. Mild tenderness on palpation of the abductor hallucis muscle belly. Office Procedures AMB Flexor Tendon/Plantar POD Tendon Injection Tendon Injection POD1: - Plantar Fascia Injection (left heel) All charges added?: Procedure code (CPT) selection complete AMB Joint Injection/Aspir Pod Additional procedure code (CPT) needed () Office Meds triamcinolone acetonide 40 mg/mL suspension for injection Performing Provider: Varun Castro DPM Performing Location: [facility] [place] [facility] Documented (not given) by: Varun Castro DPM on 03/12/25 15:06 Reason Not Given: No Longer Necessary dexamethasone sodium phosphate 4 mg/mL injection solution Performing Provider: Varun Castro DPM Performing Location: [facility] [place] [facility] Documented (not given) by: Varun Castro DPM on 03/12/25 15:06 Reason Not Given: No Longer Necessary bupivacaine (PF) 0.5 % (5 mg/mL) injection solution Performing Provider: Varun Castor DPM Performing Location: [facility] [place] [facility] Documented (not given) by: Varun Castro DPM on 03/12/25 15:06 Reason Not Given: No Longer Necessary triamcinolone acetonide 40 mg/mL suspension for injection Performing Provider: Varun Castro DPM Performing Location: [facility] [place] [facility] Administered by: Varun Castro DPM on 03/12/25 14:57 Dose Route Admin Location Dispensed Lot Number Expiration Date [facility] Calendering Machine Operator 20 mg Tendon Sheath Inj. 1 mL [id number] [employer] Total Dispensed Waste 1 mL 50 % dexamethasone sodium phosphate 4 mg/mL injection solution Performing Provider: Varun Castro DPM Performing Location: [facility] [place] [facility] Administered by: Varun Castro DPM on 03/12/25 14:57 Dose Route Admin Location Dispensed Lot Number Expiration Date [facility] Calendering Machine Operator 4 mg Tendon Sheath Inj. 1 mL [id number] [employer] Total Dispensed Waste 1 mL 0 % bupivacaine (PF) 0.5 % (5 mg/mL) injection solution Performing Provider: Varun Castro DPM Performing Location: [facility] [place] [facility] Administered by: Varun Castro DPM on 03/12/25 14:57 Dose Route Admin Location Dispensed Lot Number Expiration Date [facility] Calendering Machine Operator 2 mL subcut 10 mL [id number] [employer] Total Dispensed Waste 10 mL 80 % Assessment & Plan Assessment & Plan (1) Plantar fasciitis of left foot: Code(s): M72.2 - Plantar fascial fibromatosis Category: Medical Plan: Discussed etiology of her foot pain. Differential diagnosis includes plantar fasciitis, neuritis, tendinitis. Patient already has a prescription referral for x-rays of her left foot. She was instructed to receive her x-rays. Recommended at home stretching and range of motion exercises including calf-stretches, frozen water bottle therapy, band-therapy. Handout with exercise regimen given to the patient. Discussed that she may be referred to physical therapy at the next visit if there is minimal improvement. Continue supportive shoe-wear with arch-supports to avoid increased loading on her plantar fascia band. Patient states that she is currently taking oxycodone for back pain. Due to patient's gastric bypass history, NSAIDs are contraindicated. Follow up in 3 weeks. Possible second injection versus physical therapy referral. Orders: Orders AMB Joint Injection/Aspiration Podiatry 03/12/25 M72.2 - Plantar fascial fibromatosis AMB Flexor Tendon / Plantar Fascia Injection 03/12/25 M72.2 - Plantar fascial fibromatosis Coding Level of Care Code New Pt Level 3 (61101) Diagnoses Plantar fasciitis of left foot M72.2 CPT Codes Tendon Injection - Tendon Injection POD1: - Plantar Fascia Injection ([id number]) Joint injectio/aspiration Podiatry - All charges added?: Additional procedure code (CPT) needed ([id number])
[2025-03-12 14:23] VITALS: BMI 32.9
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
== END 2025-03-12 14:55 | disposition home or self-care (01) ==
LOC: HO.HPODS 14:05
PROVIDERS: PCP Internal Medicine; Visit Provider Student in an Organized Health Care Education/Training Program
DX: M72.2 Plantar fascial fibromatosis (principal)
CPT/HCPCS: 20550; 99203

== ENCOUNTER → 2025-03-12 14:04 | Outpatient (BNVA) | payer MEDICARE, MEDICAID, SELFPAY | PROVIDERS: PCP Internal Medicine; Visit Provider Student in an Organized Health Care Education/Training Program | DX: M72.2 Plantar fascial fibromatosis (principal) | CPT/HCPCS: 20550; 99202; J0665; J1100; J3301 ==

== ENCOUNTER 2025-04-02 13:55 | Outpatient (AMB) | payer MEDICARE, MEDICAID, SELFPAY ==
[2025-04-02 14:19] VITALS: BMI 32.9
--- NOTE | 2025-04-02 14:19 | MHC.OFFVIS ---
Vital Signs 04/02/25 14:19 Height 5 ft 3 in Weight 186 lb BMI 32.9 Intake Visit Reasons: Follow Up left foot pain Intake Note: Od[place] is a 65 year old female who presents today for a follow up on her plantar fasciitis of her left foot. She was seen on 03/12/25 where she was recommended to start home stretching and range of motion exercises information sheet was given to her as well. Patient states the exercise helped her but she is still experiencing slight pain. she will like to consider Physical therapy at this time. [employer] Required: Yes [employer] Services: [employer] Present [employer] Name: [id number] Allergies No Known Allergies Allergy (Verified 04/02/25 14:20) HPI HPI Follow Up left foot pain: Details: 64-year-old female presents today for 3 week follow up evaluation of left heel pain. She states that the injection to her left heel has helped improve her pain a little , however she now has pain extending to the side of her foot/ankle. She does not endorse doing any stretching exercises. 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 She states she is still taking oxycodone for her back. [facility] Medical History History of tachycardia Pernicious anemia Mild recurrent major depression Pure hypercholesterolemia Chronic GERD Shoulder pain, right Abdominal pain IGNACIO I (cervical intraepithelial neoplasia I) Leg edema Neck pain Recent surgical procedure on lower extremity Edema Surgical History History of esophagogastroduodenoscopy (EGD) Hx of gastric bypass History of colonoscopy H/O abdominoplasty History of tubal ligation H/O thyroidectomy Family History Father Diabetes HTN (hypertension) Mother Diabetes HTN (hypertension) Sister Vaginal cancer Lung cancer Brother Leukemia Social History Housing: House Are you a primary manager respiratory care to a significant other at home: No Do you presently have visiting nurse or other home services: Yes (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) Alcohol intake: current Alcohol intake frequency: a few times a month Comment: medicated with ibuprofen previously Patient Tobacco Use Status: Former Tobacco user Tobacco use type: Cigarette e-Cigarette/Vaping Use: Never Used Second Hand Smoke Exposure: Yes service: No Current occupational status: disabled Sexual orientation: Straight/Heterosexual Gender identity: Female Cognitive needs: No Hearing needs: No Vision needs: Yes Physical Exam Vital Signs: BMI result Body Mass Index 32.9 Extrem Other: *Bilateral Lower Extremity Focused Exam Vascular: DP/PT 2/4, CFT less than 3 seconds all digits, temperature gradient warm to cool bilaterally, (+) varicosities bilateral lower extremities worst over dorsal left foot. No pedal edema. Derm: No open wounds or lacerations. No ecchymosis. No clinical signs of infection. Neuro: Protective sensation grossly intact to bilateral lower extremities. Negative Tinel sign. MSK: Decreased, moderate tenderness on palpation along the plantar medial calcaneal tubercle. Mild tenderness on palpation of the abductor hallucis muscle belly. Mild tenderness along plantar aspect of talo-navicular joint. Assessment & Plan Assessment & Plan (1) Plantar fasciitis of left foot: Code(s): M72.2 - Plantar fascial fibromatosis Category: Medical Plan: Discussed etiology of her foot pain. Differential diagnosis includes plantar fasciitis, neuritis, tendinitis. Instructed the patient to receive her left foot x-rays, which she has not gone for yet. Reinforced at home stretching and range of motion exercises including calf-stretches, frozen water bottle therapy, band-therapy. Referred to physical therapy for chronic left heel pain. She was dispensed a night splint. Patient states that she is currently taking oxycodone for back pain. Due to patient's gastric bypass history, NSAIDs are contraindicated. Follow up in 3 weeks. Orders: Orders PT Evaluation and Treatment Today M72.2 - Plantar fascial fibromatosis Coding Level of Care Code Est Pt Level 3 (98701) Diagnoses Plantar fasciitis of left foot M72.2
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
== END 2025-04-02 14:56 | disposition home or self-care (01) ==
LOC: HO.HPODS 13:55
PROVIDERS: PCP Internal Medicine; Visit Provider Student in an Organized Health Care Education/Training Program
DX: M72.2 Plantar fascial fibromatosis (principal)
CPT/HCPCS: 99213

== ENCOUNTER → 2025-04-02 13:55 | Outpatient (BNVA) | payer MEDICARE, MEDICAID, SELFPAY | PROVIDERS: PCP Internal Medicine; Visit Provider Student in an Organized Health Care Education/Training Program | DX: M79.672 Pain in left foot (principal); M72.2 Plantar fascial fibromatosis | CPT/HCPCS: 99212 ==

== ENCOUNTER 2025-04-06 13:58 | Outpatient (REF) | payer MEDICARE, MEDICAID, SELFPAY ==
--- NOTE | ~2025-04-06 | XR_ITS ---
EXAMINATION: XR FOOT, LEFT CLINICAL INFORMATION: M79.672 - Pain in left foot COMPARISON: None available. TECHNIQUE: AP, lateral, and oblique views of the left foot. FINDINGS: Marginal osteophytes are present in the first metatarsophalangeal joint, and minimally in the lateral first IP joint. Small marginal osteophyte is are noted in the dorsal midfoot. Moderate sized calcaneal spurs are present at the plantar fascia and Achilles tendon attachments. XR/XR foot LT 2V IMPRESSION: Mild degenerative changes. Electronically signed by: Sumit Kennedy MD 04/06/2025 02:22 PM EDT
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
== END 2025-04-06 13:59 | disposition home or self-care (01) ==
LOC: HO.XRAY 13:58
PROVIDERS: PCP Internal Medicine; Visit Provider Internal Medicine
DX: M79.672 Pain in left foot (principal)
CPT/HCPCS: 73620

== ENCOUNTER → 2025-04-06 14:02 | Outpatient (BNV) | payer MEDICARE, MEDICAID, SELFPAY | PROVIDERS: PCP Internal Medicine; Visit Provider Radiology Diagnostic Radiology | DX: M79.672 Pain in left foot (principal) | CPT/HCPCS: 73620 ==

== ENCOUNTER 2025-04-23 14:58 | Outpatient (AMB) | payer MEDICARE, MEDICAID, SELFPAY ==
[2025-04-23 15:12] VITALS: BMI 32.9
--- NOTE | 2025-04-23 15:12 | A.OFFVIS_ITS ---
Vital Signs 04/23/25 15:12 Height 5 ft 3 in Weight 186 lb BMI 32.9 Intake Visit Reasons: fu left foot pain Intake Note: Nola is a 65 year old female who presents to the office today for a 3 week follow up for left foot pain. At previous visit patient was referred to PT for chronic left heel pain and was given a night splint. X-rays completed. Pt states her left foot pain has improved since using the night splint and her appointment with physical therapy is scheduled for this coming . Senior Sustainability Consultant Required: Yes Senior Sustainability Consultant Services: Senior Sustainability Consultant Present Senior Sustainability Consultant Name: [id number] Allergies No Known Allergies Allergy (Verified 04/23/25 15:13) HPI HPI fu left foot pain: Details: 64-year-old female presents today for 3 week follow up evaluation of left heel pain. She started doing stretching exercises and has been wearing the night splint which she states has mostly resolved her pain. She states she is still taking oxycodone for her back. [facility] Medical History History of tachycardia Pernicious anemia Mild recurrent major depression Pure hypercholesterolemia Chronic GERD Shoulder pain, right Abdominal pain IGNACIO I (cervical intraepithelial neoplasia I) Leg edema Neck pain Recent surgical procedure on lower extremity Edema Surgical History History of esophagogastroduodenoscopy (EGD) Hx of gastric bypass History of colonoscopy H/O abdominoplasty History of tubal ligation H/O thyroidectomy Family History Father Diabetes HTN (hypertension) Mother Diabetes HTN (hypertension) Sister Vaginal cancer Lung cancer Brother Leukemia Social History Housing: House Are you a primary care aide to a significant other at home: No Do you presently have visiting 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) Alcohol intake: current Alcohol intake frequency: a few times a month Comment: medicated with ibuprofen previously Patient Tobacco Use Status: Former Tobacco user Tobacco use type: Cigarette e-Cigarette/Vaping Use: Never Used Second Hand Smoke Exposure: Yes service: No Current occupational status: disabled Sexual orientation: Straight/Heterosexual Gender identity: Female Cognitive needs: No Hearing needs: No Vision needs: Yes Physical Exam Vital Signs: BMI result Body Mass Index 32.9 Extrem Other: *Bilateral Lower Extremity Focused Exam Vascular: DP/PT 2/4, CFT less than 3 seconds all digits, temperature gradient warm to cool bilaterally, (+) varicosities bilateral lower extremities worst over dorsal left foot. No pedal edema. Derm: No open wounds or lacerations. No ecchymosis. No clinical signs of infection. Neuro: Protective sensation grossly intact to bilateral lower extremities. Negative Tinel sign. MSK: Mild tenderness on palpation along the plantar medial calcaneal tubercle. No tenderness on palpation of the abductor hallucis muscle belly. No tenderness along plantar aspect of talo-navicular joint. Assessment & Plan Assessment & Plan (1) Plantar fasciitis of left foot: Comment: Status post cortisone injection Code(s): M72.2 - Plantar fascial fibromatosis Category: Medical Plan: * Recommended to use supportive shoe wear. Patient's current shoes/Crocs are worn. * Continue range of motion and stretching exercises at home. Continue night splint. * Patient has a her 1st appointment with the physical therapy this week. She was recommended to continue with physical therapy to prevent recurrence of fasciitis. * Follow up in 6 weeks. Coding Level of Care Code Est Pt Level 3 (03473) Diagnoses Plantar fasciitis of left foot M72.2 Time Spent (min) 25
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
== END 2025-04-23 15:25 | disposition home or self-care (01) ==
LOC: HO.HPODS 14:59
PROVIDERS: PCP Internal Medicine; Visit Provider Student in an Organized Health Care Education/Training Program
DX: M72.2 Plantar fascial fibromatosis (principal)
CPT/HCPCS: 99213

== ENCOUNTER → 2025-04-23 14:58 | Outpatient (BNVA) | payer MEDICARE, MEDICAID, SELFPAY | PROVIDERS: PCP Internal Medicine; Visit Provider Student in an Organized Health Care Education/Training Program | DX: M72.2 Plantar fascial fibromatosis (principal) | CPT/HCPCS: 99212 ==

== ENCOUNTER 2025-05-28 12:57 | Outpatient (AMB) | payer MEDICARE, MEDICAID, SELFPAY ==
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
== END 2025-05-28 13:18 | disposition home or self-care (01) ==
LOC: HO.HPODS 12:58
PROVIDERS: PCP Internal Medicine; Visit Provider Student in an Organized Health Care Education/Training Program
DX: M72.2 Plantar fascial fibromatosis (principal); I87.8 Other specified disorders of veins
CPT/HCPCS: 99213

== ENCOUNTER → 2025-05-28 12:57 | Outpatient (BNVA) | payer MEDICARE, MEDICAID, SELFPAY | PROVIDERS: PCP Internal Medicine; Visit Provider Student in an Organized Health Care Education/Training Program | DX: M72.2 Plantar fascial fibromatosis (principal); I87.8 Other specified disorders of veins | CPT/HCPCS: 99212 ==